=== PATIENT | male | born 1970 | race Caucasian/White ===

== ENCOUNTER 2022-05-06 17:18 | Emergency (ER) | payer BC, SELFPAY ==
[2022-05-06 18:45] VITALS: BP 120/77; PULSE 102; RESP 24; TEMP 36.6; O2SAT 97; BMI 28.6
[2022-05-06 19:39] LABS: PCR FLU A Negative PCR FLU A (Negative); PCR FLU B Negative PCR FLU B (Negative); PCR RSV Negative PCR RSV (Negative)
--- NOTE | 2022-05-06 19:44 | CRLHL7_ITS ---
For Patients: As a result of the Cures Act, medical imaging exams and procedure reports are released immediately into your electronic medical record. You may view this report before your referring provider. If you have questions, please contact your health care provider. INDICATION: Cough. TECHNIQUE: Chest 2 views. COMPARISON: October 07, 2021. FINDINGS: Cardiovascular and mediastinum: Heart size and vasculature are normal in caliber and appearance. Lungs and pleural spaces: Lungs are clear. No sign of infiltrate or mass. No sign of pleural effusion. No pneumothorax. Bones and soft tissues: No significant findings. IMPRESSION: No acute findings and no significant changes from the prior exam. Dictated by Deven Larson MD @ 05/06/2022 8:23:04 PM (Electronically Signed)
--- OUTSIDE RECORDS SUMMARY | 2022-05-06 20:02 | XMS_ITS | Encounter Summary ---
:1970 Author Organization [place] Address [facility] [place] [address] Care Team Providers Name Role Phone Clinic, [facility] Primary Care Provide r Reason for Visit Reason Comments Shortness of Breath Covid Concern Encounter Details Date Type Department Care Team Description 11/15/2020 Emergency [facility] Maico Ruggiero MD Pneumonia due to [address] [place] [address] Emergency Dep t [facility] novel coronavirus [address] [place], [place] [address] [facility] [address] [place] [place] [id number] [place] [address] (Wo rk) Social History Tobacco Use Types Packs/Day Years Used Date Smoking Tobacco: Never Alcohol Use Standard Drinks/Week Comments No 0 (1 standard drink = 0.6 oz pure alcoho l) Sex Assigned at Date Recorded Not on file COVID-19 Exposure Response Date Recorded In the last month, have you been in contact with Yes 11/15/2020 10:16 PM CDT someone who was confirmed or suspected to have Coronavirus / COVID-19? documented as of this encounter Last Filed Vital Signs Vital Sign Reading Time Taken Comments Blood Pressure 126/82 11/15/2020 11:30 PM CDT Pulse 87 11/15/2020 11:30 PM CDT Temperature 36.4 ??C (97.5 ??F) 11/15/2020 10:17 PM CDT Respiratory Rate 20 11/15/2020 10:17 PM CDT Oxygen Saturation 95% 11/15/2020 11:30 PM CDT Inhaled Oxygen Concentration - - Weight 93.4 kg (206 lb) 11/15/2020 10:17 PM CDT Height - - Body Mass Index - - documented in this encounter Discharge Instructions Discharge InstructionsMaico Ruggiero MD - 11/15/2020 11:39 PM CDT Discharge Instructions COVID-19 COVID-19 is the disease caused by a new coronavirus. The virus spreads from hbdzak-ot-drefqi primarily by droplets when an infected person coughs or sneezes and the droplets are then breathed in by another person. There are tests available to diagnose COVID-19. You may have been diagnosed with COVID, may be being tested for COVID and have a pending test result, or may have been exposed to COVID. Symptoms of COVID-19 Many people have no symptoms or mild symptoms. Symptoms may usually appear 4 to 5 days (up to 14 days) after contact with a person with COVID-19. Some people will get severe symptoms and pneumonia. Usual symptoms are: ? Fever ? Cough ? Trouble breathing Less common symptoms are: Headache, body aches, sore throat, sneezing, diarrhea, loss of taste or smell. Isolation and Quarantine You may have been seen because you have symptoms, had an exposure, or had some other concern about possible COVID. The best way to stop the spread of the virus is to avoid contact with others. Isolation refers to sick people staying away from people who are not sick. A person in quarantine islimiting activity because they were exposed and are waiting to see if they might become sick. If you test positive for COVID, you should stay home (isolation) for at least 10 days after your symptoms began, and for 24 hours with no fever and improvement of symptoms--whichever is longer. (Your fever should be gone for 24 hours without using fever-reducing medicine). If you have no symptoms, youshould stay home (isolation) for 10 days from the day of the test. If you have been vaccinated for COVID, the vaccination will not cause you to test positive so a positive test result generally is a ???true positive?? . For example, if you have a fever and cough for 6 days, you need to stay home 4 more days with no fever for a total of 10 days. Or, if you have a fever and cough for 10 days, you need to stay home one more day with no fever for a total of 11 days. If you have a high-risk exposure to COVID (you spent 15 minutes or more within six feet of somebody who has COVID), you should stay home (quarantine) for 14 days, unless you are vaccinated. Even if youtest negative for COVID, the CDC recommends a 14-day quarantine from the time of your last exposure to that individual (unless you are vaccinated). There are options for a shortened (<14 day quarantine) you can review at: https://www.health.[facility]./diseases/coronavirus/close.html#long If you live in the same house as somebody with COVID and cannot separate from them, you will need toquarantine for 14-days after that person's isolation (infectious) period. That means that you may need to quarantine for 24-days after that person became symptomatic/ill. If you are vaccinated and do not develop symptoms, you do not need to quarantine after exposure. If you have symptoms but a negative test, you should stay at home until you are symptom-free and without fever for 24 hours, using the same judgment you would for when it is safe to return to work/school from strep throat, influenza, or the common cold. If you worsen, you should consider being re-evaluated. If you are being tested for COVID because of symptoms and your test is pending, you should stay homeuntil you know your test result. If I have COVID, how should I protect myself and others? Do not go to work or school. Have a friend or relative do your shopping. Do not use public transportation (bus, train) or ridesharing (Lyft, Uber). Separate yourself from other people in your home. As much as possible, you should stay in one room and away from other people in your home. Also, use a separate bathroom, if possible. Avoid handling pets or other animals while sick. Wear a facemask if you need to be around other people and cover your mouth and nose with a tissue when you cough or sneeze. Avoid sharing personal household items. You should not share dishes, drinking glasses, forks/knives/spoons, towels, or bedding with other people in your home. After using these items, they should be washed with soap and water. Clean parts of your home that are touched often (doorknobs, faucets, countertops, etc.) daily. Wash your hands often with soap and water for at least 20 seconds or use an alcohol-based hand senior integration developer containing at least 60% alcohol. Avoid touching your face. Treat your symptoms. You can take Acetaminophen (Tylenol) to treat body aches and fever as needed for comfort. Ibuprofen (Advil or Motrin) can be used as well if you still have symptoms after taking Tylenol. Drink fluids. Rest. Watch for worsening symptoms such as shortness of breath/difficulty breathing or very severe weakness. Employers/workplaces are being asked by the Centers for Disease Control (CDC) to not request notes/documentation for you to return to work or prove that you were ill. You may choose to show your employer this paperwork. Also, repeat testing should not be required to return to work. Exercise/Sports in rare cases, COVID could affect your heart in a way that makes exercise or participation in sports dangerous. If you have a mild COVID illness (fever, cough, sore throat, and similar symptoms but no difficulty breathing or abnormalities of the lung): After your COVID symptoms have resolved, wait 14-days beforereturning to activity. If you have more than a mild illness (meaning that you have problems with your breathing or lungs) or if you participate in competitive or strenuous activity or have a history of heart disease: Please see your primary doctor/provider prior to return to activity/competition. Antibody treatments are available for patients with mild to moderate COVID illness in order to prevent severe illness. In general, only patients with risk factors for severe illness are eligible for treatment. For more information, to see if you are eligible, and to find treatment, go to the [facility]: https://www.health.[facility].[place].us/diseases/coronavirus/mnrap.html Return to the Emergency Department if: If you are developing worsening breathing, shortness of breath, or feel worse you should seek medical attention. If you are uncertain, contact your health care provider/clinic. If you need emergency medical attention, call 911 and tell them you have been ill. documented in this encounter Medications at Time of Discharge Medication Sig Dispensed Refills Start Date End Date albuterol (2.5 MG/3ML) Take 1 ampule by 0 0.083% nebulizer nebulization daily as solution needed acetaminophen (TYLENOL) Take 1,000 mg by mouth 0 11/18/2020 500 MG tablet daily as needed for mild pain (2 X 500 mg) albuterol (PROAIR Inhale 2 puffs into 0 11/18/2020 HFA/PROVENTIL the lungs daily as HFA/VENTOLIN HFA) 108 needed for shortness (90 Base) MCG/ACT of breath / dyspnea or inhaler wheezing celecoxib (CELEBREX) Take 200 mg by mouth 2 0 11/18/2020 200 MG capsule times daily diazepam (VALIUM) 2 MG Take 2 mg by mouth 0 11/18/2020 tablet daily as needed for anxiety FLUoxetine 20 MG tablet Take 60 mg by mouth 0 11/18/2020 every morning (3 X 20 mg) fluticasone (FLOVENT Inhale 2 puffs into 0 11/18/2020 HFA) 110 MCG/ACT the lungs every inhaler morning gabapentin (NEURONTIN) Take 600 mg by mouth 2 0 11/18/2020 300 MG capsule times daily (2 X 300 mg) hydrOXYzine (ATARAX) 25 Take 25-50 mg by mouth 0 11/18/2020 MG tablet daily as needed for itching Multiple Take 5 chew tab by 0 2020 Vitamins-Minerals mouth every morning (MULTIVITAMIN GUMMIES ADULT PO) sildenafil (VIAGRA) 100 Take 100 mg by mouth 0 11/18/2020 MG tablet daily as needed sulfamethoxazole-trimet Take 1 tablet by mouth 0 11/18/2020 hoprim (BACTRIM DS) 2 times daily FIVE DAY 800-160 MG tablet COURSE, STARTED 11/14/20 - 11/18/20 traZODone (DESYREL) 50 Take 50 mg by mouth 0 11/18/2020 MG tablet every evening documented as of this encounter ED Notes Ludwin Braxton, RN - 11/15/2020 10:18 PM CDT Pt arrives with complaints of shortness of breath since Dx of COVID on Wednesday for which he has beentaking Zithromax and Prednisone, but is reporting no change in his SOB. Hx of asthma. Denies chest pain, but says he needs a jump start with this breathing. ABCs intact, A/O x4. Maico Ruggiero MD - 11/15/2020 10:03 PM CDT History Chief Complaint: Shortness of Breath and Covid Concern HPI Don Thomas is a 50 year old male with history of asthma who presents with shortness of breath. The patient states that he was diagnosed with COVID-19 two weeks ago and was started on Prednisone and Zithromax on Wednesday (11/13) for his symptoms. He presents with concern for shortness of breath and dry throat. Denies any chest pain or fever. The patient has a home pulse oximeter, which has been measuring in the upper 90's. He has not been vaccinated for COVID-19. Review of Systems Constitutional: Negative for fever. HENT: Positive for sore throat. Respiratory: Positive for shortness of breath. Cardiovascular: Negative for chest pain. All other systems reviewed and are negative. Allergies: No known drug allergies Medications: Albuterol Gabapentin Trazodone Prozac Viagra Past Medical History: COVID-19 Asthma Spinal stenosis Loss hearing unilateral Arthritis Depression Nance's palsy Past Surgical History: Craniectomy Laminectomy lumbar Finger surgery Rotator cuff surgery Decompression spine posterior lumbar Social History: Presents to emergency department alone Physical Exam Patient Vitals for the past 24 hrs: BP Temp Temp src Pulse Resp SpO2 Weight 11/15/20 2330 126/82 -- -- 87 -- 95 % -- 11/15/20 2315 114/100 -- -- 90 -- 94 % -- 11/15/20 2300 130/91 -- -- 85 -- 93 % -- 11/15/20 2245 134/77 -- -- 86 -- 92 % -- 11/15/20 2217 126/85 97.5 ??F (36.4 ??C) Temporal 90 20 98 % 93.4 kg (206 lb) Physical Exam Nursing note and vitals reviewed. Constitutional: Cooperative. Tired appearing. HENT: Mouth/Throat: Mucous membranes are normal. Cardiovascular: Normal rate, regular rhythm and normal heart sounds. No murmur. Pulmonary/Chest: Effort normal and breath sounds normal. No respiratory distress. No wheezes. No rales. Abdominal: Soft. Normal appearance. There is no tenderness. Neurological: Alert. Oriented x4 Skin: Skin is warm and dry. . Psychiatric: Normal mood and affect. Emergency Department Course Imaging: XR Chest Port 1 View IMPRESSION: Within the left upper lobe laterally, there is a small somewhat rounded region of consolidation. Chest otherwise negative. As read by Radiology. Laboratory: CBC: WBC: 13.7 (H), HGB: 14.7, PLT: 285 BMP: Glucose 125 (H), Calcium: 8.4 (L), o/w WNL (Creatinine: 0.92) Reviewed: I reviewed nursing notes, vitals, past medical history and care everywhere Assessments: 2332 I obtained history and examined the patient as noted above. Disposition: The patient was discharged to home. Impression & Plan Medical Decision Making: Don Thomas is a 50 year old male who presents to the emergency department today with cough and shortness of breath in the setting of a known COVID-19 diagnosis. Clinically the patient is well appearing without increased work of breathing, respiratory distress, hypoxia, signs of ARDS or other serious decompensation or complication. There are no signs of complications of pneumonia at this point such as septic shock, bacteremia, empyema, hypoxia, respiratory failure or compromise. CXR was obtainedand concerning for COVID-19 pneumonia, otherwise negative. I recommended supportive care for treatment. He is already on antibiotics. Tylenol for fever control. Good oral fluid intake. Discussed the importance of home quarantine and CDC guidelines on self-quarantine were provided as part of discharge instructions. No indication for hospitalization at this time. Return precautions were discussed with patient. The patient's questions were answered and the patient was agreeable with discharge. Covid-19 Don Thomas was evaluated during a global COVID-19 pandemic, which necessitated consideration that the patient might be at risk for infection with the SARS-CoV-2 virus that causes COVID-19. Applicable protocols for evaluation were followed during the patient's care. COVID-19 was considered as part of the patient's evaluation. The plan for testing is: a test was obtained at a previous visit and reviewed & considered today. Diagnosis: ICD-10-CM 1. Pneumonia due to 2019 novel coronavirus U07.1 J12.82 Scribe Disclosure: I, Carlita Yanes, am serving as a scribe at 11:27 PM on 11/15/2020 to document services personally performed by Maico Ruggiero MD based on my observations and the provider's statements to me. Maico Ruggiero MD 11/16/20 0122 documented in this encounter Plan of Treatment Not on filedocumented as of this encounter Procedures Procedure Name Priority Date/Time Associated Comments Diagnosis XR CHEST PORT 1 VIEW STAT 11/15/2020 10:57 Res ults for this PM CDT procedure are i n the results section. CBC WITH PLATELETS & STAT 11/15/2020 10:43 Res ults for this DIFFERENTIAL PM CDT procedure are i n the results section. BASIC METABOLIC PANEL STAT 11/15/2020 10:43 Re sults for this PM CDT procedure are i n the results section. documented in this encounter Results XR Chest Port 1 View (11/15/2020 10:57 PM CDT) Anatomical Region Laterality Modality Chest Digital Radiography Specimen (Source) Anatomical Collection Method Collection Time Re ceived Time Location / / Volume Laterality 11/15/2020 10:47 PM CDT Impressions 11/15/2020 11:57 PM CDT IMPRESSION: Within the left upper lobe l aterally, there is a small somewhat rounded region of consolidation. Chest otherwise negative. Narrative 11/15/2020 11:57 PM CDT EXAM: XR CHEST PORT 1 VIEW LOCATION: [facility] DATE/TIME: 11/15/2020 10:47 PM INDICATION: Shortness of breath. COVID p ositive. COMPARISON: None. Procedure Note Kishan Correa MD - 11/15/2020Formattin g of this note might be different from the original. EXAM: XR CHEST PORT 1 VIEW LOCATION: [facility] DATE/TIME: 11/15/2020 10:47 PM INDICATION: Shortness of breath. COVID p ositive. COMPARISON: None. IMPRESSION: Within the left upper lobe l aterally, there is a small somewhat rounded region of consolidation. Chest otherwise negative. Mendoza Pandey MD IMG DIAGNOSTIC IMAGING ORDER ROB (ABNORMAL) Basic metabolic panel (11/15/2020 10:43 PM CDT) athologist Signature Sodium 136 133 - 144 11/15/2020 [facility] mmol/L 11:06 PM [facility] Potassium 3.7 3.4 - 5.3 11/15/2020 [facility] mmol/L 11:06 PM [facility] Chloride 108 94 - 109 11/15/2020 [facility] mmol/L 11:06 PM [facility] Carbon Dioxide 22 20 - 32 11/15/2020 [facility] mmol/L 11:19 PM [facility] Anion Gap 6 3 - 14 11/15/2020 [place] mmol/L 11:19 [facility] Glucose 125 (H) 70 - 99 11/15/2020 [facility] mg/dL 11:19 [facility] Urea Nitrogen 15 7 - 30 11/15/2020 [facility] mg/dL 11:19 [facility] Creatinine 0.92 0.66 - 11/15/2020 [facility] 1.25 mg/dL 11:19 [facility] GFR Estimate >90 >60 11/15/2020 [place] mL/min/{1. 11:19 PM [facility] 73_m2} [facility] Comment: Non GFR Calc Starting 06/21/2018, serum creatinine ba sed estimated GFR (eGFR) will be calculated using the Chronic Kidney Dise [facility] Epidemiology Collaboration (CKD-EPI) equation. GFR Estimate If >90 >60 mL/min/{1.73_m2} 11/15/2020 11 :19 PM [facility] Comment: GFR Calc Starting 06/21/2018, serum creatinine ba sed estimated GFR (eGFR) will be calculated using the Chronic Kidney Dise [facility] Epidemiology Collaboration (CKD-EPI) equation. Calcium 8.4 (L) 8.5 - 10.1 mg/dL 11/15/2020 11:19 PM [facility] Specimen Anatomical Collection Method Collection Time Receive d Time (Source) Location / / Volume Laterality Blood 11/15/2020 10:43 11/15/2020 PM CDT 10:50 PM CDT Maico Ruggiero MD LAB - BLOOD ORDERABLES Performing Organization Address City/State/ZIP Code Phon e Number [facility] [address], [place] [address] [facility] [address], [place] [address], [facility] [phone] (ABNORMAL) CBC with platelets differential (11/15/2020 10:43 PM T) [facility] Method Time Signature WBC 13.7 (H) 4.0 - 11/15/2020 [facility] 11.0 10:55 PM [facility] 10e9/L [facility] RBC Count 4.56 4.4 - 5.9 11/15/2020 [facility] 10e12/L 10:55 PM [facility] Hemoglobin 14.7 13.3 - 11/15/2020 [facility] 17.7 g/dL 10:55 PM [facility] Hematocrit 41.7 40.0 - 11/15/2020 [facility] 53.0 % 10:55 PM [facility] MCV 91 78 - 100 11/15/2020 [facility] fl 10:55 PM [facility] MCH 32.2 26.5 - 11/15/2020 [facility] 33.0 pg 10:55 PM [facility] MCHC 35.3 31.5 - 11/15/2020 [facility] 36.5 g/dL 10:55 PM [facility] RDW 11.7 10.0 - 11/15/2020 [facility] 15.0 % 10:55 PM [facility] Platelet Count 285 150 - 450 11/15/2020 [facility] 10e9/L 10:55 PM [facility] Diff Method Automated 11/15/2020 [facility] Method 10:55 PM [facility] % Neutrophils 85.9 % 11/15/2020 [facility] 10:55 PM [facility] % Lymphocytes 4.8 % 11/15/2020 [facility] 10:55 PM [facility] % Monocytes 7.5 % 11/15/2020 [facility] 10:55 PM [facility] % Eosinophils 0.1 % 11/15/2020 [facility] 10:55 PM [facility] % Basophils 0.2 % 11/15/2020 [facility] 10:55 PM [facility] % Immature 1.5 % 11/15/2020 [facility] Granulocytes 10:55 PM [facility] Nucleated RBCs 0 0 /100 11/15/2020 [facility] 10:55 PM [facility] Absolute 11.7 (H) 1.6 - 8.3 11/15/2020 [facility] Neutrophil 10e9/L 10:55 PM [facility] Absolute 0.7 (L) 0.8 - 5.3 11/15/2020 [facility] Lymphocytes 10e9/L 10:55 PM [facility] Absolute 1.0 0.0 - 1.3 11/15/2020 [facility] Monocytes 10e9/L 10:55 PM [facility] Absolute 0.0 0.0 - 0.7 11/15/2020 [facility] Eosinophils 10e9/L 10:55 PM [facility] Absolute 0.0 0.0 - 0.2 11/15/2020 [facility] Basophils 10e9/L 10:55 PM [facility] Abs Immature 0.2 0 - 0.4 11/15/2020 [facility] Granulocytes 10e9/L 10:55 PM [facility] Absolute 0.0 11/15/2020 [facility] Nucleated RBC 10:55 [facility] Specimen Anatomical Collection Method Collection Time Receive d Time (Source) Location / / Volume Laterality Blood 11/15/2020 10:43 11/15/2020 PM CDT 10:50 PM CDT Maico Ruggiero MD LAB - BLOOD ORDERABLES Performing Organization Address City/State/ZIP Code Phon e Number M [facility] [address], [place] [address] [facility] [address] [phone] documented in this encounter Visit Diagnoses Diagnosis Pneumonia due to 2019 novel coronavirus documented in this encounter Care Teams Product Marketing Coordinator Relationship Specialty Start Date End Date Clinic, [facility] PCP - General 11/15/[address] [place] [id number] documented as of this encounter
--- OUTSIDE RECORDS SUMMARY | 2022-05-06 20:02 | XMS_ITS | Encounter Summary ---
:1970 Author Organization [place] Address [address] [place] [address]. [place] [address] Care Team Providers Name Role Phone [facility], [facility] Primary Care Provider Unav ailable Reason for Visit Reason Comments Pharyngitis Shortness of Breath Cold Symptoms Encounter Details Date Type Department Care Team Description 03/12/2013 Emergency [facility] Louann Mendoza Acute ph aryngitis (Primary Dx); [facility] Emergency Dep arnulfo Ramsay MD Viral syndrome; [address] [facility] Cough [facility] [id number] [address] [place] [address] (Wo rk) Social History Tobacco Use Types Packs/Day Years Used Date Smoking Tobacco: Never Alcohol Use Standard Drinks/Week Comments No 0 (1 standard drink = 0.6 oz pure alcoho l) Sex Assigned at Date Recorded Not on file documented as of this encounter Last Filed Vital Signs Vital Sign Reading Time Taken Comments Blood Pressure 108/71 03/12/2013 9:41 AM CDT Pulse - - Temperature 37.1 ??C (98.8 ??F) 03/12/2013 9:48 AM CDT Respiratory Rate 16 03/12/2013 7:57 AM CDT Oxygen Saturation 96% 03/12/2013 9:41 AM CDT Inhaled Oxygen Concentration - - Weight 95.3 kg (210 lb) 03/12/2013 6:47 AM CDT Height - - Body Mass Index - - documented in this encounter Discharge Instructions Discharge InstructionsLouann Mendoza MD - 03/12/2013 8:56 AM CDT Discharge Instructions Sore Throat You were seen today for a sore throat. Most sore throats are caused by a virus. Antibiotics do not help with viral infections, but you can fight off the virus on your own. In this case, your sore throat would be treated with medications for your pain and fever. Strep throat is a kind of sore throat caused by Group A streptococcus bacteria. This type of sore throat is treated with antibiotics. If you had a rapid test done today for strep throat and it did not show infection, we always do a culture. If the culture shows you have strep throat, we will call you and get you a prescription for antibiotics. Return to the Emergency Department if: If you have difficulty breathing If you are drooling because you are unable to swallow You become dehydrated due to difficulty drinking. Signs of dehydration include weakness, dry mouth,and urinating less than 3 times per day If you develop swelling of the neck or tongue If you develop a high fever with either headache or stiff neck Treatment: Pain relief -- Non-prescription pain medications, such as acetaminophen (Tylenol??) or ibuprofen (Motrin??, Advil??) are usually recommended for pain. Do not use a medicine that you are allergic to, or if your doctor has told you not to use it. If you have been given a narcotic (such as codeine, hydrocodone, or oxycodone) do not drive for four hours after you have taken it. If the narcotic contains acetaminophen (Tylenol??), do not take other acetaminophen (Tylenol??) with it. All narcotics will cause constipation, so eat a high fiber diet. If you have been placed on antibiotics, watch for signs of allergic reaction. These include rash, lip swelling, difficulty breathing, wheezing, and dizziness. If you develop any of these symptoms, stop the antibiotic immediately and go to an emergency room or urgent care for evaluation. Remember that you can always come back to the Emergency Department if you are not able to see your regular doctor in the amount of time listed above, if you get any new symptoms, or if there is anything that worries you. AttachmentsThe following attachments cannot be sent through Care Everywhere. VIRAL SYNDROME (ADULT) (LITHUANIAN)documented in this encounter Medications at Time of Discharge Medication Sig Dispensed Refills Start Date End Date albuterol (2.5 MG/3ML) Take 1 ampule by 0 0.083% nebulizer nebulization daily as solution needed ondansetron (ZOFRAN ODT) Take 1 tablet (4 mg) 10 tablet 0 0 03/12/2013 03/15/2013 4 MG disintegrating by mouth every 8 tablet hours as needed for nausea LMA-Ehso-SqLksn-MgHydr-S Swish and swallow 237 mL 1 02/201311/15/2020 imeth (FIRST-MOUTHWASH 5-10 mLs in mouth BLM) SUSP every 6 hours as needed ibuprofen (ADVIL,MOTRIN) Take 1 tablet (600 30 tablet 1 02/201311/15/2020 600 MG tablet mg) by mouth every 6 hours as needed for pain NO ACTIVE MEDICATIONS 0 oxyCODONE-acetaminophen Take 1-2 tablets by 15 tablet 0 02/201311/15/2020 (PERCOCET) 5-325 MG per mouth every 4 hours tablet as needed for pain documented as of this encounter ED Notes Janessa Pitts RN - 03/12/2013 8:35 AM CDT Pt has been eating and swallowing ice chips Louann Mendoza MD - 03/12/2013 6:58 AM CDT History Chief Complaint: Sore Throat HPI Don Thomas is a 42 year old male with a history of asthma who presents with a sore throat. According to the patient, 3 days ago he experienced acute onset of a sore throat, fever to 102 on Wednesday,generalized body aches and a severe productive cough with associated mild shortness of breath. The patient has also been unable to sleep, felt nauseated over this period and has gagged on the phlegm heis producing. He presents today with unresolved symptoms. His girlfriend (with whom he lives) did have pneumonia last week per her report, and he also states that he had a sick contact at work with similar upper respiratory symptoms. The patient has taken Tylenol around the clock since Wednesday. He den ies any episodes of emesis, rash, dysphagia, nasal congestion, rhinorrhea, hemoptysis or neck/ear pain. He has had no headache, chest pain, chills or diaphoresis. The patient reports no urinary or neurologic symptoms aside from increased fatigue. He states he has not had a BM in the last 5 days but notes that he often has highly irregular BMs. The patient is clearly uncomfortable on the bed and voices no other complaints at this time. Allergies: The patient has no known drug allergies. Medications: Albuterol neb, Advair Past Medical History: Asthma Past Surgical History: The patient does not have any pertinent past surgical history. Family History: The patient denies any relevant family history. Marital Status: , has a current significant other Social History: Smoking status (never smoker), smokeless tobacco (no), alcohol use (yes, occasional) Review of Systems Constitutional: Positive for fever (102). Negative for chills and diaphoresis. HENT: Positive for sore throat. Negative for congestion, rhinorrhea, trouble swallowing, neck pain and neck stiffness. Respiratory: Positive for cough (productive) and shortness of breath (mild). Negative for chest tightness and wheezing. Cardiovascular: Negative for chest pain. Gastrointestinal: Positive for nausea. Negative for vomiting and abdominal pain. Genitourinary: Negative for dysuria, hematuria and difficulty urinating. Musculoskeletal: Positive for arthralgias. Neurological: Negative. All other systems reviewed and are negative. Physical Exam First Vitals: BP: 111/68 mmHg Heart Rate: 94 Temp: 99.1 ??F (37.3 ??C) Resp: 22 Weight: 95.255 kg (210 lb) SpO2: 98 % Physical Exam Constitutional: He is oriented to person, place, and time. Adult male, appears uncomfortable, sitting upright HENT: soft palate and oropharyngeal erythema with multiple discrete white-stephen 1-2 mm lesions over the soft palate, mild edema, uvula is midline, no pooling of secretions, no asymmetry Eyes: Conjunctivae normal are normal. Pupils are equal, round, and reactive to light. Cardiovascular: Normal rate, regular rhythm, normal heart sounds and intact distal pulses. Exam reveals no gallop and no friction rub. No murmur heard. Pulmonary/Chest: Effort normal. No respiratory distress. He has no wheezes. He has no rales. Diminished breath sounds at right base Abdominal: Soft. He exhibits no distension and no mass. There is no tenderness. Musculoskeletal: Normal range of motion. He exhibits no edema and no tenderness. Lymphadenopathy: He has no cervical adenopathy. Neurological: He is alert and oriented to person, place, and time. He exhibits normal muscle tone. No focal abnormalities appreciated. Answers all questions and follows all commands appropriately. Skin: Skin is warm and dry. No rash noted. He is not diaphoretic. No erythema. Psychiatric: He has a normal mood and affect. Emergency Department Course Imaging: Radiographic findings were communicated with the patient who voiced understanding of the findings. XR Chest (PA and LAT): negative and unchanged, per radiology. Laboratory: Rapid Strep Test: Negative Strep Culture: Pending Nuckolls screen: negative ED Interventions: Sodium chloride 0.9%, 1 L, IV bolus NaCl 0.9%, 1 L, IV bolus Dexamethasone, 10 mg, IV injection Ketorolac, 30 mg IV injection Magic Mouthwash - Maalox 2.5 mL, Viscous Lidocaine 2% 2.5 mL, Benadryl 5 mL, 10 mL suspension, PO Percocet, 2 tab, PO ED Course: I reviewed the patient's medical record. 06:58 The patient was seen and examined by myself. I discussed the course of care with the patient including laboratory and diagnostic studies. He understands and is agreeable to the plan. A peripheral IV was established. 8:30 Recheck: notes improvement in body aches but still has sore throat; will give GI cocktail I discussed with the patient the results of the above procedures and he will be discharged to home with a prescription for Zofran, Percocet, First Mouthwash and Advil. All questions were answered prior to discharge, and the patient was told to follow up per discharge instructions. Reasons for return as well as follow up were reviewed with the patient. He understands and agrees tothis plan. Impression & Plan Medical Decision Making: Don Thomas is a healthy at baseline 42 year old male who presents to the ED with sore throat, body aches and cough. Here in the ED, he does not appear toxic but does appear uncomfortable. He does have evidence of oral lesions, which are likely causing his pain. He does not have a fever. He responded well to interventions here. There is no evidence of strep or mononucleosis. He had significant improvement with Magic Mouthwash and will be sent home with a prescription for this as well as instructions to use Motrin for pain. He requested something stronger as well and I will prescribe Percocet 1 tab every 4-6 hours as needed for pain. He should drink plenty of fluids and rest, and was given appropriate return instructions. He should follow up with his PMD in 3-5 days as needed. All questions were answered and the patient understands and agrees with the plan. The patient was discharged home in improved condition. Please note that he did have a cough and slightly diminished breath sounds at the right base; however, I suspect that was related to poor inspiration. His CXR was clear with no sign of infiltrates. I suspect that this is related to viral syndrome. Diagnosis: 1. Acute pharyngitis 2. Viral syndrome 3. Cough IDavid, am serving as a scribe at 6:58 AM on 03/12/2013 to document services personally performed by Dr. Mendoza based on my observations and the provider's statements to me. David Nicholas 03/12/2013 [facility] EMERGENCY DEPARTMENT Louann Mendoza MD 03/13/13 1146 Felton Molina RN - 03/12/2013 6:50 AM CDT Patient complaints of influenza like illness. This started about three days ago & got worse today. Patient complaints of difficulty breathing with nasal congestion/runy nose, sore throat and cough dry non productive with white color sputum. Patient also stated that they have fever, headaches, chills, shakes, muscles & body aches with fatigue. patient has nausea, vomiting and no diarrhea documented in this encounter Plan of Treatment Not on filedocumented as of this encounter Procedures Procedure Name Priority Date/Time Associated Comments Diagnosis XR CHEST 2 VIEWS STAT 03/12/2013 7:53 AM Resul ts for this CDT procedure are i n the results section. MONONUCLEOSIS SCREEN STAT 03/12/2013 7:25 AM R esults for this CDT procedure are i n the results section. BETA HEMOLYTIC STREP Routine 03/12/2013 7:25 AM R esults for this GROUP A CULTURE CDT procedure ar e in the results section. RAPID STREP SCREEN STAT 03/12/2013 7:05 AM Res ults for this THROAT SWAB CDT procedure are i n the results section. documented in this encounter Results Chest XR, PA & LAT (03/12/2013 7:53 AM CDT) Anatomical Region Laterality Modality Chest Other Specimen (Source) Anatomical Collection Method Collection Time Re ceived Time Location / / Volume Laterality 03/12/2013 7:53 AM CDT Narrative 03/12/2013 8:56 AM CDT CHEST 2 VIEW* ??03/12/2013 7:53 AM HISTORY: ??Cough COMPARISON: 07/12/2012 FINDINGS: Negative and unchanged. LAURO NUÑEZ MD Procedure Note Lauro Nuñez MD - 03/12/2013Formatti ng of this note might be different from the original. CHEST 2 VIEW* 03/12/2013 7:53 AM HISTORY: Cough COMPARISON: 07/12/2012 FINDINGS: Negative and unchanged. LAURO NUÑEZ MD Louann Mendoza MD IMG DIAGNOSTIC IMAGING ORDER ROB Beta strep group A culture (03/12/2013 7:25 AM CDT) Component Value Ref Test Analysis Performed At [facility] Method Time Signature Specimen Throat [facility] LAB Culture Micro No Beta [facility] Streptococcus MICROBIOLOGY isolated Micro Report FINAL 03/14/2013 [facility] Status MICROBIOLOGY Specimen Anatomical Collection Method Collection Time Receive d Time (Source) Location / / Volume Laterality 03/12/2013 7:25 AM 3 7:45 CDT AM CDT Louann Mendoza MD LAB - MICRO GENERAL ORDERABL ES Performing Organization Address City/State/ZIP Code Phon e Number [facility] [address] [place] [address] [facility] LAB [facility] MICROBIOLOGY Mononucleosis screen (03/12/2013 7:25 AM CDT) [facility] Voice Of TV Method Time Signature Mononucleosis Negative NEG [facility] LAB Specimen Anatomical Collection Method Collection Time Receive d Time (Source) Location / / Volume Laterality Blood specimen 03/12/2013 7:25 AM 013 7:32 (specimen) CDT AM CDT Louann Mendoza MD LAB - BLOOD ORDERABLES Performing Organization Address City/State/ZIP Code Phon e Number M [facility] [address] [place], [place] [address] [facility] LAB Rapid strep screen - throat (03/12/2013 7:05 AM CDT) Component Value Ref Test Analysis Performed At [facility] Range Method Time Signature Specimen Throat [facility] LAB Rapid Strep A NEGATIVE: No Group A strepto coccal antigen detected by immunoassay, await [facility] culture report. [facility] Internal [facility] LAB Micro Report FINAL 03/12/2013 [facility] LAB Specimen Anatomical Collection Method Collection Time Receive d Time (Source) Location / / Volume Laterality Specimen from 03/12/2013 7:05 AM 03/12/20 13 7:20 throat CDT AM CDT (specimen) Louann Mendoza MD LAB - MICRO GENERAL ORDERABL ES Performing Organization Address City/[facility]/ZIP Code Phon e Reji Martino [facility] [address], [place] [address] [facility] documented in this encounter Visit Diagnoses Diagnosis Acute pharyngitis - Primary Viral syndrome Unspecified viral infection, in conditio ns classified elsewhere and of unspecified site Cough documented in this encounter Administered Medications Inactive Administered Medications - up to 3 most recent administrations Medication Order MAR Action Action Date Dose Rate Site dexamethasone (DECADRON) injection Given 03/12/2013 7:25 AM CDT 10 mg 10 mg 10 mg, Intravenous, ONCE, On 03/12/13 at 0715, For 1 dose ketorolac (TORADOL) injection 30 mg Given 03/12/2013 7:25 AM CDT 30 mg 30 mg, Intravenous, ONCE, On 03/12/13 at 0715, For 1 dose, Do not give within 6 hours of Ibuprofen. Magic Mouthwash (FV std formula) lidocaine Given 03/12/2013 9:25 AM CDT 10 mLs visc 2% 2.5mL/5mL & maalox/mylanta w/ simeth 2.5mL/5mL & diphenhydrAMINE 5mg/5mL 10 mL, Swish & Swallow, ONCE, On 03/12/13 at 0845, For 1 dose, Shake well. oxyCODONE-acetaminophen (PERCOCET) 5-325 Given 03/12/2013 8: 41 AM CDT 2 tablets MG per tablet 2 tablet 2 tablet, Oral, ONCE, On 03/12/13 at 0845, For 1 dose, Maximum acetaminophen dose from all sources= 75 mg/kg/day not to exceed 4 grams sodium chloride 0.9 % BOLUS New Bag 03/12/2013 7:25 AM CDT 1,000 m Ls 1000 mL/hr 1,000 mL Intravenous, 1,000 mL, ONCE, at 1,000 mL/hr, Administer over 1 Hours, On 03/12/13 at 0715, For 1 dose documented in this encounter Active and Recently Administered Medications Times are shown in CDT. Scheduled Medication Order 03/10/2013 03/11/2013 03/12/2013 dexamethasone (DECADRON) injection 10 mg (COMPLETED) 724 (Given - Provider: Janessa Pitts RN) 10 mg, Intravenous, ONCE, 03/12/13 at 0715, For 1 dose ketorolac (TORADOL) injection 30 mg (COMPLETED) 724 (Given - Provider: Janessa Pitts RN) 30 mg, Intravenous, ONCE, 03/12/13 at 0715, For 1 dose, Do not give within 6 hours of Ibuprofen. Magic Mouthwash (FV std formula) lidocai ne visc 2% 2.5mL/5mL & maalox/mylanta w/ simeth 2.5mL/5mL & diphenhydrAMINE 5mg/5mL (COMPLETED) 924 (Given - Provider: Janessa Pitts RN) 10 mL, Swish & Swallow, ONCE, On 03/12/13 at 0845, For 1 dose, Shake well. 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
--- OUTSIDE RECORDS SUMMARY | 2022-05-06 20:02 | XMS_ITS | Encounter Summary ---
:1970 Author Organization [place] Address [address] [facility] [place] [address] Care Team Providers Name Role Phone [facility] Primary Care Provider Unav ailable Encounter Details Date Type Department Care Team Description 11/06/2020 Orders Only [facility] Sammy Moffett Encounter for Maria E Arriola OR MD Zachery screening for other [address] [place] [facility] viral diseases [address] [id number] [place] [phone] [id number] Social History Tobacco Use Types Packs/Day Years Used Date Smoking Tobacco: Never Alcohol Use Standard Drinks/Week Comments No 0 (1 standard drink = 0.6 oz pure alcoho l) Sex Assigned at Date Recorded Not on file documented as of this encounter Plan of Treatment Not on filedocumented as of this encounter Visit Diagnoses Diagnosis Encounter for screening for other viral diseases documented in this encounter 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
--- OUTSIDE RECORDS SUMMARY | 2022-05-06 20:02 | XMS_ITS | Encounter Summary ---
:1970 Author Organization [facility] Address [facility] [place] [address] Care Team Providers Name Role Phone [facility], [facility] Primary Care Provide r Reason for Visit Auth/Cert Specialty Diagnoses / Procedures Referred By Contact Refer red To Contact Surgery Diagnoses Erectile dysfunction Erectile dysfunction [N52.9] Sh Periop Services Procedures ZZC INSERT SELF-CONTD PENILE PROSTHESIS ZZC INSERT MULTI-COMPON PENILE PROSTHE INSERTION, PENILE PROSTHESIS, INFLATABLE [address] [place] [address] Phone: Referral ID Status Reason Start Date Expiration Date Visits Requ ested Visits Authorized [id number] 1 1 Encounter Details Date Type Department Care Team Description 02/18/2021 Surgery [facility] Sammy Moffett INSERTION , PENILE [place] [facility] MD [place] PROSTHESIS, INFLATABLE Services [facility] [address] [place] [address] [place] [address] [phone] Surgery Details Date/Time Status Location OR Service Patient Case Class Case Tr auma Class Type Case? 02/18/21 9:40 Posted OR OR [facility] Same Day AM Surgery Panel 1 Procedure LRB Anes Op Region Wound Class Commen ts INSERTION, PENILE PROSTHESIS, INFLATABLE N/A General Penis I-Clean Surgeon Surgeon Role Service Panel Sammy Moffett MD Primary Urology 1 Stephen Maciel MD Assisting Urology 1 Special Needs PENILE IMPLANT - VESNA TSCHANN COLOPLAST documented in this encounter Social History Tobacco Use Types Packs/Day Years Used Date Smoking Tobacco: Former Cigarettes Smokeless Tobacco: Never Alcohol Use Standard Drinks/Week Comments No 0 (1 standard drink = 0.6 oz pure alcoho l) Sex Assigned at Date Recorded Not on file COVID-19 Exposure Response Date Recorded In the last month, have you been in contact with No / Unsure 02/18/2021 7:22 AM CDT someone who was confirmed or suspected to have Coronavirus / COVID-19? documented as of this encounter Last Filed Vital Signs Vital Sign Reading Time Taken Comments Blood Pressure 109/76 02/18/2021 12:00 PM CDT Pulse 73 02/18/2021 12:00 PM CDT Temperature 35.6 ??C (96 ??F) 02/18/2021 11:49 AM CDT Respiratory Rate 16 02/18/2021 12:00 PM CDT Oxygen Saturation 95% 02/18/2021 12:00 PM CDT Inhaled Oxygen Concentration - - Weight 93.4 kg (206 lb) 02/18/2021 7:41 AM CDT Height 180.3 cm (5' 11) 02/18/2021 7:41 AM CDT Body Mass Index 28.73 02/18/2021 7:41 AM CDT documented in this encounter Discharge Instructions Discharge InstructionsAnya Terry RN - 02/18/2021 12:54 PM CDT Today you were given 975 mg of Tylenol at 8:50. The recommended daily maximum dose is 4000 mg. Same Day Surgery Discharge Instructions for Sedation and General Anesthesia ?? It's not unusual to feel dizzy, light-headed or faint for up to 24 hours after surgery or while taking pain medication. If you have these symptoms: sit for a few minutes before standing and have someone assist you when you get up to walk or use the bathroom. ?? You should rest and relax for the next 24 hours. We recommend you make arrangements to have an adult stay with you for at least 24 hours after your discharge. Avoid hazardous and strenuous activity. ?? DO NOT DRIVE any vehicle or operate mechanical equipment for 24 hours following the end of your surgery. Even though you may feel normal, your reactions may be affected by the medication you have received. ?? Do not drink alcoholic beverages for 24 hours following surgery. ?? Slowly progress to your regular diet as you feel able. It's not unusual to feel nauseated and/or vomit after receiving anesthesia. If you develop these symptoms, drink clear liquids (apple juice, devan tiana, broth, 7-up, etc. ) until you feel better. If your nausea and vomiting persists for 24 hours, please notify your surgeon. ?? All narcotic pain medications, along with inactivity and anesthesia, can cause constipation. Drinking plenty of liquids and increasing fiber intake will help. ?? For any questions of a medical nature, call your surgeon. ?? Do not make important decisions for 24 hours. ?? If you had general anesthesia, you may have a sore throat for a couple of days related to the breathing tube used during surgery. You may use Cepacol lozenges to help with this discomfort. If it worsens or if you develop a fever, contact your surgeon. ?? If you feel your pain is not well managed with the pain medications prescribed by your surgeon, please contact your surgeon's office to let them know so they can address your concerns. CoVid 19 Information We want to give you information regarding Covid. Please consult your primary care provider with any questions you might have. Patient who have symptoms (cough, fever, or shortness of breath), need to isolate for 7 days from when symptoms started OR 72 hours after fever resolves (without fever reducing medications) AND improvement of respiratory symptoms (whichever is longer). ?? Isolate yourself at home (in own room/own bathroom if possible) ?? Do Not allow any visitors ?? Do Not go to work or school ?? Do Not go to orthodoxy, child support agent centers, shopping, or other public places. ?? Do Not shake hands. ?? Avoid close and intimate contact with others (hugging, kissing). ?? Follow CDC recommendations for household cleaning of frequently touched services. After the initial 7 days, continue to isolate yourself from household members as much as possible. To continue decrease the risk of community spread and exposure, you and any members of your household should limit activities in public for 14 days after starting home isolation. You can reference the following CDC link for helpful home isolation/care tips: https://www.cdc.gov/coronavirus/2019-ncov/downloads/10Things.pdf Protect Others: ?? Cover Your Mouth and Nose with a mask, disposable tissue or wash cloth to avoid spreading germs to others. ?? Wash your hands and face frequently with soap and water Call Your Primary Doctor If: Breathing difficulty develops or you become worse. For more information about COVID19 and options for caring for yourself at home, please visit the CDCwebsite at https://www.cdc.gov/coronavirus/2019-ncov/about/fqwed-wshg-rviq.html For more options for care at [facility], please visit our website at [email or web address] Reasons to contact your surgeon: 1. Signs of possible infection: Check your incision daily for redness, swelling, warmth, red streaksor foul drainage. 2. Elevated temperature. 3. Pain not controlled with pain medication and/or rest. 4. Uncontrolled nausea or vomiting. 5. Any questions or concerns. Hemant Huff Drain Home Care Instructions What is a Hemant Huff (MICHAEL) Drain? This is a small tube that connects to a bulb. Its gentle suction removes extra fluid from a surgicalwound. Your doctor will remove the tube when the amount of fluid decreases. The color and amount of fluid varies. Right after surgery the fluid is bright red. Over time, it changes to light pink and may become clear or the color of straw. How should I care for my tube site? Keep the skin around the tube dry. Check with your doctor about how to shower. You may need to cover the site with plastic when you shower. Or, it may be okay to let the site get wet and put on a clean bandage after you shower. ??? If the bandage gets wet, you will need to change it. How should I care for the bulb? Keep the bulb compressed at all times except while you empty it. ??? Attach the bulb to your clothing with tape and a safety pin. ??? Try to empty the bulb at the same time every day. Empty the bulb at least once a day, or when the bulb becomes half full. If it becomes too full, there will not be enough suction. To empty the bulb: ??? Wash your hands. ??? Open the bulb cap. ??? Drain the fluid from the bulb into the measuring cup. If you have two drains, use two cups. ??? Clean the mouth of the bulb with an alcohol wipe if your nurse told you to. ??? Squeeze the bulb (fold it in half before you close the bulb cap) If it does not stay compressed,call your nurse or clinic. ??? Write the amount of drainage on the drainage record (see back page). If you have two drains, write the amount for each bulb. ??? Flush the drainage down the toilet. Rinse the measuring cup. ??? Wash your hands. When should I call my doctor? Call your doctor if: ??? You have a fever over 101??F (38.3??C), taken under the tongue. ??? The drainage increases or smells bad. ??? The skin around your tube has increased redness, swelling, warmth or pain. ??? You have pus or fluid leaking at the tube site. ??? Your stitches break. ??? You think the tube is not draining. ??? The tube falls out. ??? You have any problems or concerns. Your drainage record: Empty your bulb at least once per day or when 1/2 to 1/3 full. Write down the date, time and amount of drainage in each bulb. Bring this record to each clinic visit. Date Time Bulb 1: amount of Drainage in (ml or cc) Bulb 2: amount of drainage (in ml or cc) Notes If you have questions or concerns about your procedure, call Dr. Moffett at [phone] documented in this encounter Medications at Time of Discharge Medication Sig Dispensed Refills Start Date End Date albuterol (2.5 MG/3ML) Take 1 ampule by 0 0.083% nebulizer nebulization daily as solution needed budesonide-formoterol Inhale 2 puffs into the 0 (SYMBICORT) 160-4.5 lungs every morning MCG/ACT Inhaler celecoxib (CELEBREX) Take 200 mg by mouth 0 200 MG capsule daily FLUoxetine (PROZAC) 20 Take 60 mg by mouth 0 MG capsule daily (20MG X 3 = 60MG) fluticasone (FLOVENT Inhale 1 puff into the 0 HFA) 110 MCG/ACT lungs 2 times daily inhaler gabapentin (NEURONTIN) Take 900 mg by mouth 3 0 300 MG capsule times daily (300MG X 3 = 900MG) ipratropium - Take 1 vial by 0 albuterol 0.5 mg/2.5 nebulization every 4 mg/3 mL (DUONEB) hours as needed 0.5-2.5 (3) MG/3ML neb solution melatonin 3 MG tablet Take 3 mg by mouth 0 nightly as needed for sleep montelukast Take 10 mg by mouth 0 (SINGULAIR) 10 MG every evening tablet sildenafil (VIAGRA) Take 100 mg by mouth 0 100 MG tablet daily as needed sulfamethoxazole-trime Take 1 tablet by mouth 10 tablet 0 0 02/18/2021 thoprim (BACTRIM DS) 2 times daily 800-160 MG tabletIndications: Other male erectile dysfunction traZODone (DESYREL) 50 Take 50 mg by mouth At 0 MG tablet Bedtime ondansetron Take 1-2 tablets (4-8 12 tablet 0 02/18/2021 (ZOFRAN-ODT) 4 MG ODT mg) by mouth every 8 tabIndications: Other hours as needed for male erectile nausea dysfunction oxyCODONE (ROXICODONE) Take 1-2 tablets (5-10 20 tablet 0 0 02/18/2021 02/21/2021 5 MG mg) by mouth every 4 tabletIndications: hours as needed for Other male erectile moderate to severe pain dysfunction documented as of this encounter Progress Notes Farheen Collins - 02/17/2021 1:18 PM CDT PAPER SLITTER medications updated by Medication Scribe prior to surgery via phone call with patient??(last doses completed by Nurse) Medication history sources: Patient, Surescripts and H&P In the past week, patient estimated taking medication this percent of the time: Greater than 90% Adherence assessment: N/A Not Observed Significant changes made to the medication list: None Additional medication history information: None Medication reconciliation completed by provider prior to medication history? No Time spent in this activity: 50 MINUTES The information provided in this note is only as accurate as the sources available at the time of update(s) Prior to Admission medications Medication Sig Last Dose Taking? Auth Provider albuterol (2.5 MG/3ML) 0.083% nebulizer solution Take 1 ampule by nebulization daily as needed at PRN Yes Reported, Patient budesonide-formoterol (SYMBICORT) 160-4.5 MCG/ACT Inhaler Inhale 2 puffs into the lungs every morning at AM Yes Reported, Patient celecoxib (CELEBREX) 200 MG capsule Take 200 mg by mouth daily at AM Yes Reported, Patient FLUoxetine (PROZAC) 20 MG capsule Take 60 mg by mouth daily (20MG X 3 = 60MG) at AM Yes Reported, Patient fluticasone (FLOVENT HFA) 110 MCG/ACT inhaler Inhale 1 puff into the lungs 2 times daily at PRN Yes Reported, Patient gabapentin (NEURONTIN) 300 MG capsule Take 900 mg by mouth 3 times daily (300MG X 3 = 900MG) at AM Yes Reported, Patient ipratropium - albuterol 0.5 mg/2.5 mg/3 mL (DUONEB) 0.5-2.5 (3) MG/3ML neb solution Take 1 vial by nebulization every 4 hours as needed at PRN Yes Reported, Patient melatonin 3 MG tablet Take 3 mg by mouth nightly as needed for sleep at PM Yes Reported, Patient montelukast (SINGULAIR) 10 MG tablet Take 10 mg by mouth every evening at PM Yes Reported, Patient sildenafil (VIAGRA) 100 MG tablet Take 100 mg by mouth daily as needed at PRN Yes Reported, Patient traZODone (DESYREL) 50 MG tablet Take 50 mg by mouth At Bedtime at PM Yes Reported, Patient documented in this encounter Nursing Notes Anya Terry RN - 02/18/2021 1:21 PM CDT Weighted bag removed from lower abdomen at 1250. Pt voided in PACU. MICHAEL instructions reviewed with pt, he stated he understood them and that his s.o. did not need to come into get MICHAEL instructions. Written MICHAEL instructions in AVS, to review with pt and s.o. in Phase II. Diana Alas RN - 02/17/2021 1:19 PM CDT Pt instructed to bring inhalers, and names of meds he was prescribed by Helen. documented in this encounter Miscellaneous Notes Op Note - Sammy Moffett MD - 02/18/2021 10:38 AM CDT OPERATIVE REPORT PATIENT: Don Thomas : 1970, AGE: [age] year old SSN: [id number] SURGEON Sammy Moffett MD (Primary) Stephen Robert Maciel MD Cigarette Machine Filler: Helene Franz RN PREOP DIAGNOSIS: Erectile Dysfunction POSTOP DIAGNOSIS: Same Procedure(s): INSERTION OF INFLATABLE PENILE PROSTHESIS ANESTHESIA General COMPLICATIONS: None FINDINGS 20 cm Coloplast Titan IPP, 76 ml of sterile injectable saline used to fill the reservoir in the right submuscular location. SPECIMEN None IMPLANT 1. 20 cm Coloplast Titan IPP 2. 76 ml [place] 3. Scrotal Pump EBL 20 cc INDICATIONS FOR PROCEDURE -this gentleman has a history of erectile dysfunction. The patient has failed all alternative therapies including phosphodiesterase inhibitors, intracavernosal injections, andvacuum erectile device. The patient has been evaluated in the office and is opted for placement of aTitan 3 piece penile prosthesis, with the patient fully understanding the risks and benefits of thistherapeutic approach, including but not limited to device failure, infection, bleeding, foreshortening of the penis, cold glans, decreased sensation, difficulty with pump utilization, urethral injury, herniation of the reservoir, difficulty with ejaculation and or an ejaculation, penile necrosis, and even imminent . It should be noted that the patient received Hibiclens shower for 1 to 2 days prior to the procedure and that the patient has been instructed to keep himself clean with proper hygiene and not engage in any sex until otherwise advised. OPERATIVE PROCEDURE- After proper identification of the patient,the patient was taken to the operating room and placed supine on the operating room table. Next adequate general anesthesia, a coud?? Bernabe catheter was inserted and the bladder was drained. The Bernabe was subsequently removed. The patientwas then positioned on the table with flexion in supine position. The groin was then prepped and draped after usual sterile scrub and paint per penile prosthesis protocol. The patient received perioperative antibiotics delivered within the appropriate time.. Bilateral pudendal nerve blocks were performed into Alcock's canal. Next an artificial erection was performed using a 21-gauge butterfly needle with a combination of normal saline and lidocaine withoutepinephrine. This demonstrated no significant pathology. An infrapubic incision was made, extending a pproximately 2 to 3 cm across the infrapubic area, making sure to stay away from the penopubic junction. Blunt dissection was carried down to the level of the corporal bodies bilaterally, making sure to spare the superficial epigastrics lateral to this dissection. Once down to the corpora, 2-0 Vicryl stay sutures were placed bilaterally, making sure the sutures were placed lateral as possible on eachindividual corpus, clearly away from the neurovascular bundles, which were protected and moved medially by the pediatric Yankauer. Bilateral corporotomies were performed with a 12 blade measuring approximately 1.5 cm. On the outstretched penis the left proximal corpora measured 10 cm using the Christian insertion tool. It should be noted that the pathway was created by placement of the Yankauer suction initially on the outstretched penis. Next on the outstretched penis with protection of the fossa navicularis and tip of the penis pinched between my thumb and index and middle fingers distal measurementwas performed and noted to be 10 cm. In a similar fashion the right side was measured 10 cm proximally and 10 cm distally. Again extreme caution was used on the outstretched penis with protection of the distal penis over the fossa navicularis with pressure by my thumb and middle and index finger.. I then placed the nasal speculum in the proximal corporotomies bilaterally to visualize the proximal corpora and this demonstrated no evidence of crossover. I then copiously irrigated and proceeded with placement of a 76 cc reservoir. This was placed just underneath transversalis fascia on the left side by use of a nasal speculum. This was just medial to the cord structure. Note that this was placed outside of the abdomen. I next copiously irrigated and everyone changed surgical gloves. I then proceeded with placement of the penile implant. The implant was placed in each appropriate corporal body using a Christian insertion tool and Jean needle. The implant was seated appropriately robby rapid fill inflation was performed using a syringe filled with normal saline in order to evaluate the function and cosmesis results of the implant. The implant was found to be seated appropriately and placed appropriately within each corporal body. A nasal speculum was then utilized to develop the midline posterior dependent portion in the scrotumafter first perforating Colles' fascia with a nasal speculum and then developing the space with 1 spread of the nasal speculum. The Lanie pump was then placed in the most dependent portion of the scrotum along the midline. The pump was then pulled up in order to allow for any redundancy in the tubing to be nonexistent after the connections were made. The appropriate kit was utilized to perform the tubing connections between the reservoir and the pump. The pump was then finally pulled down to the most dependent portion of the scrotum without any difficulty. A drain was then brought out through a se parate stab wound superiorly running through the surgical field. This was secured to the skin with a2-0 Nylon suture. The wound was irrigated with copious amounts of antibiotic fluid throughout the procedure. The wound was then closed in 2 layers by first approximating Ze's fascia with 3-0 Vicrylin a running type fashion and akira for the skin. The device was then activated easily .This demonstrating again demonstrated appropriate position and cosmesis .I next placed a Bernabe catheter 16 U[place] coud?? type without difficulty and clear urine drained. Dressings were then applied and a scrotal support . The device was then deactivated with a small amount of fluid in the cylinders. All sponge lap and needle counts were correct. The patient tolerated the procedure without any complications. Estimated blood loss was 20 cc. He was taken to the recovery room in stable condition. PLAN Patient to be transferred to the PACU with a 3L bag of fluid on incision for 2 hours. Patient must void prior to discharge. Patient will be discharged with multimodal pain medication and antibiotic coverage for an additional 5 days. Will follow up in 2 days for drain removal and 2 weeks for device education Sammy Moffett MD [facility] Pager: [phone] Office: [phone] Surgical [phone] documented in this encounter Plan of Treatment Not on filedocumented as of this encounter Procedures Procedure Name Priority Date/Time Associated Diagnosis Comme nts INSERTION, PENILE 02/18/2021 9:45 AM CDT Erectile dysf unction PROSTHESIS, INFLATABLE Special Needs PENILE IMPLANT - VESNA TSCHAN N COLOPLAST LAB RESULT - HIM SCAN 02/14/2021 12:00 AM CDT EKG CARDIAC - HIM SCAN 02/14/2021 12:00 AM CDT documented in this encounter Results LAB RESULT - HIM SCAN (02/14/2021 12:00 AM CDT) Specimen (Source) Anatomical Location Collection Method / Collectio n Time Received Time / Laterality Volume 02/14/2021 Narrative This result has an attachment that is no t available. Provider Scan [facility] NON-BEAKER LAB TESTING EKG CARDIAC - HIM SCAN (02/14/2021 12:00 AM CDT) Specimen (Source) Anatomical Location Collection Method / Collectio n Time Received Time / Laterality Volume 02/14/2021 Narrative This result has an attachment that is no t available. Provider Scan ECG ORDERABLES documented in this encounter Visit Diagnoses Diagnosis Other male erectile dysfunction - Primar y Erectile dysfunction Impotence of organic origin documented in this encounter Administered Medications Inactive Administered Medications - up to 3 most recent administrations Medication Order MAR Action Action Date Dose Rate Site acetaminophen (TYLENOL) tablet 975 Given 02/18/2021 8:51 AM CDT 975 mg mg 975 mg, Oral, PRE-OP/PRE-PROCEDURE, Starting on Wed02/18/21 at 0739, For 1 dose, Maximum acetaminophen dose from all sources = 75 mg/kg/day not to exceed 4 grams/day., Pre-procedure bupivacaine (MARCAINE) Given 02/18/2021 10:40 AM 10 mLs Operative Site/Surgical 0.5% injection MDV CDT Site PRN, Starting on Wed02/18/21 at 1040, Intra-procedure celecoxib (celeBREX) capsule 200 mg Given 02/18/2021 8:51 AM CDT 200 mg 200 mg, Oral, PRE-OP/PRE-PROCEDURE, Starting on Wed02/18/21 at 0739, For 1 dose, Pre-procedure fentaNYL (PF) (SUBLIMAZE) injection 50 m cg Given 02/18/2021 12:15 PM CDT 50 mcg 50 mcg, Intravenous, EVERY 5 MIN PRN, severe pain, (7-10), Starting on Wed02/18/21 at 1213, For 3 hours, Up to a total of 200 mcg. Postop anesthesia Phase I only. Nurse to discontinue order when patient discharged from Phase I. Pain medications to be given in following preferential sequence (unless allergic): 1) fentanyl 2) HYDROmorphone. Continue with medication until patient reaches max dose or has adverse or allergic reaction or the Anesthesiologist consulted to move to the next medication. Then proceed to next narcotic in sequence. For ordered IV doses 1-100 mcg give IV Push undiluted over a minimum of 3-5 minutes., PACU gabapentin (NEURONTIN) capsule 300 mg Given 02/18/2021 9:29 AM CDT 300 mg 300 mg, Oral, PRE-OP/PRE-PROCEDURE, Starting on Wed02/18/21 at 0739, For 1 dose, Pre-procedure lidocaine 2% injection Given 02/18/2021 11:24 AM 10 mLs Operative Site/Surgical (MDV) CDT Site PRN, Starting on Wed02/18/21 at 1124, Intra-procedure oxyCODONE (ROXICODONE) tablet 10 mg Given 02/18/2021 12:44 PM CDT 10 mg 10 mg, Oral, ONCE PRN, other, pain control or improvement in physical function.??, Starting on Wed02/18/21 at 1214, For 1 dose, Notify provider to assess for uncontrolled pain or analgesic side effects. oxyCODONE (ROXICODONE) tablet 5 mg 5 mg, Oral, EVERY 4 HOURS PRN, moderate to severe pain, Starting on Wed02/18/21 at 1214, Max: 5 mg for opioid-na??ve patient. topical tissue adhesive Given 02/18/2021 11:25 AM 1 each Operative Site/Surgical (EXOFIN) tube CDT Site PRN, Starting on Wed02/18/21 at 1125, Intra-procedure vancomycin 1500 mg in 0.9% NaCl 250 ml New Bag 02/18/2021 8:48 AM CDT 1,500 mg intermittent infusion 1,500 mg Routine, 1,500 mg (rounded from 1,401 mg = 15 mg/kg ? 93.4 kg), Intravenous, PRE-OP/PRE-PROCEDURE, Starting on Wed02/18/21 at 0739, For 1 dose, Vesicant. Infuse doses less than 1,250 mg over 1 hour. Infuse doses between 1,250 mg and less than 1,750 mg over 90 minutes. Infuse doses 1,750 mg and above over 2 hours. , Indications: Perioperative Pharmacoprophylaxis, Pre-procedure documented in this encounter Active and Recently Administered Medications Times are shown in CDT. Scheduled Medication Order 02/16/2021 02/17/2021 02/18/2021 acetaminophen (TYLENOL) tablet 975 mg (COMPLETED) 08 (Given - Provider: Eilene Calderon RN) 975 mg, Oral, PRE-OP/PRE-PROCEDURE, Star ting on Wed02/18/21 at 0739, For 1 dose, Maximum acetaminophen dose from all sources = 75 mg/kg/day not to exceed 4 grams/day., Pre-procedure celecoxib (celeBREX) capsule 200 mg (COMPLETED) 08 (Given - Provider: Eileen Calderon RN) 200 mg, Oral, PRE-OP/PRE-PROCEDURE, Star ting on Wed02/18/21 at 0739, For 1 dose, Pre-procedure gabapentin (NEURONTIN) capsule 300 mg (COMPLETED) 09 (Given - Provider: Eileen Calderon RN) 300 mg, Oral, PRE-OP/PRE-PROCEDURE, Star ting on Wed02/18/21 at 0739, For 1 dose, Pre-procedure gentamicin (GARAMYCIN) infusion 80 mg (CANCELED) 0800 (Canceled Entry - Provider: Orders Generic Provider - Comment: Automatically canceled at discontinue of medication order)1012 (Given - Provider: Amy Rm) Routine, 80 mg, Intravenous, EVERY 12 HO URS, First dose on Wed02/18/21 at 0800, Indications: Perioperative Pharmacoprophylaxis, Pre-procedure vancomycin 1500 mg in 0.9% NaCl 250 ml i ntermittent infusion 1,500 mg (COMPLETED) 0848 (New Bag - Prov ider: Eileen Calderon RN) Routine, 1,500 mg (rounded from 1,401 mg = 15 mg/kg ? 93.4 kg), Intravenous, PRE-OP/PRE-PROCEDURE, Starting on Wed02/18/21 at 0739, For 1 dose, Vesicant. Infuse doses less than 1,250 mg over 1 hour. In fuse doses between 1,250 mg and less kizzy n 1,750 mg over 90 minutes. Infuse doses 1,750 mg and above over 2 hours. , Indications: Perioperative Pharmacoprophylaxis, Pre-procedure PRN Medication Order 02/16/2021 02/17/2021 02/18/2021 bupivacaine (MARCAINE) 0.5% injection MDV (CANCELED) 1040 (Given - Provider: Sammy Moffett MD) PRN, Starting on Wed02/18/21 at 1040, Intra-procedure fentaNYL (PF) (SUBLIMAZE) injection 50 mcg (CANCELED) 1215 (Given - Provider: Anya Terry RN) 50 mcg, Intravenous, EVERY 5 MIN PRN, se laura pain, (7-10), Starting on Wed02/18/21 at 1213, For 3 hours, Up to a total of 200 mcg. Postop anesthesia Phase I only. Nurse to discontinue order when patient discharged from Phase I. Pain medicatio ns to be given in following preferential sequence (unless allergic): 1) fentanyl 2) HYDROmorphone. Continue with medication until patient reaches max dose or has adverse or allergic reaction or the Anes thesiologist consulted to move to the next medication. Then proceed to next narcotic in sequence. For ordered IV doses 1-100 mcg give IV Push undiluted over a minimum of 3-5 minutes., PACU lidocaine 2% injection (MDV) (CANCELED) 1124 (Given - Provider: Sammy Moffett MD) PRN, Starting on Wed02/18/21 at 1124, Intra-procedure oxyCODONE (ROXICODONE) tablet 10 mg (COMPLETED) 1244 (Given - Provider: Anya Terry RN) 10 mg, Oral, ONCE PRN, other, pain contr ol or improvement in physical function.??, Starting on Wed02/18/21 at 1214, For 1 dose, Notify provider to assess for uncontrolled pain or analgesic side effects. oxyCODONE (ROXICODONE) tablet 5 mg 5 mg, Oral, EVERY 4 HOURS PRN, moderate to severe pain, Starting on Wed02/18/21 at 1214, Max: 5 mg for opioid-na??ve patient. topical tissue adhesive (EXOFIN) tube (CANCELED) 1125 (Given - Provider: Sammy Moffett MD - Comment: abdomen) PRN, Starting on Wed02/18/21 at 1125, Intra-procedure documented in this encounter Care Teams Business Development Coordinator Relationship Specialty Start Date End Date Clinic, [facility] PCP - General 11/15/[address] [place] [id number] documented as of this encounter
--- OUTSIDE RECORDS SUMMARY | 2022-05-06 20:02 | XMS_ITS | Encounter Summary ---
:1970 Author Organization [facility] Address [address] [place] [address]. [place] [address] Care Team Providers Name Role Phone [facility] Primary Care Provide r Encounter Details Date Type Department Care Team Description 11/15/2020 Travel Social History Tobacco Use Types Packs/Day Years [...] / COVID-19? documented as of this encounter Plan of Treatment Not on filedocumented as of this encounter Visit Diagnoses Not on filedocumented in this encounter Care Teams Senior Warehouse Clerk Relationship Specialty Start Date End Date [facility] PCP - General 11/15/[address] [place] [address] documented as of this encounter
--- OUTSIDE RECORDS SUMMARY | 2022-05-06 20:02 | XMS_ITS | Clinical Summary ---
:1970 Author Organization [facility] [place] [address] Care Team Providers Name Role Phone [place], *[facility] Primary Care Provider Unavailable Allergies Active Allergy Reactions Severity Noted Date Comments Mandeep Miller Hives 12/28/2012 Medications Medication Sig Dispensed Refills Start Date End Date Status oxyCODONE-acetaminophen Take 1-2 tablets 30 tablet 0 3 Active , 5-325 mg, (PERCOCET) by mouth every 6 per tablet hours if needed for Pain. Max acetaminophen dose: 4000mg in 24 hrs. acetaminophen (TYLENOL) Take 2 tablets by 0 03/15/20 13 Active 325 mg tablet mouth every 4 hours if needed for Pain (For mild pain.). Max acetaminophen dose: 4000mg in 24 hrs. oxyCODONE-acetaminophen Take 1-2 tablets 20 tablet 0 3 Active , 5-325 mg, (PERCOCET) by mouth every 4 per tablet hours if needed for Pain (For moderate to severe pain). Max acetaminophen dose: 4000mg in 24 hrs. methylPREDNISolone Take by mouth as 1 Package 0 03/15/2013 Active (MEDROL DOSEPAK) 4 mg instructed on the tablet packaging. oxyCODONE-acetaminophen Take 1 tablet by 10 tablet 0 3 Active , 5-325 mg, (PERCOCET) mouth every 4 per tablet hours if needed for Pain. Max acetaminophen dose: 4000mg in 24 hrs. artificial tear 0.3 %, Place 1 Drop into 15 mL 0 3 Active hypromellose, the eye(s) 3 times (MURINEREFRESH ISOPTO daily if needed. TEARS) 0.3 % Drop predniSONE (DELTASONE) Take 3 tablets by 0 3 Active 20 mg mouth once daily tabletIndications: with a meal. Nance's palsy valACYclovir (VALTREX) Take 1 tablet by 0 03/28/2013 Active 1 g tabletIndications: mouth 3 times Nance's palsy daily. artificial Tear, Place 1-2 Drops 1 Tube 0 03/28/2013 Active hypromellose 0.3 % gel, into the eye(s) (GENTEAL) 0.3 % every 2 hours if GelIndications: Nance's needed. palsy methylPREDNISolone Take by mouth as 1 Package 0 03/28/2013 Active (MEDROL, YINA,) 4 mg instructed per tabletIndications: packaging. Nance's palsy fluticasone-salmeterol Inhale 1 Puff by 1 Inhaler 11 05/22/2013 Active (ADVAIR DISKUS) 250-50 mouth every 12 mcg/Dose diskus hours. inhalerIndications: Mild persistent asthma albuterol HFA Inhale 2 Puffs by 1 Inhaler 12 05/22/2013 Active (PRO-AIR,VENTOLIN,PROVE mouth 4 times NTIL) 90 mcg/actuation daily if needed. inhalerIndications: Mild persistent asthma ibuprofen (ADVIL; Take 2 tablets by 0 03/04/2018 Active MOTRIN) 200 mg tablet mouth 2 times daily if needed for Pain. Active Problems Problem Noted Date Acute pharyngitis and laryngitis 03/14/2013 Overview: Formatting of this note is dif ferent from the original. 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 How many drinks containing alcohol do you Not asked have on a typical day when you are drinking? How often do you have six or more drinks on Not asked one occasion? Comment: Beer every other week or so 03/04/2018 Sex Assigned at Date Recorded Not on file Obstetrics History Last Filed Vital Signs Vital Sign Reading Time Taken Comments Blood Pressure 115/76 03/04/2018 3:09 PM CDT Pulse 80 03/04/2018 3:09 PM CDT Temperature 36.2 ??C (97.1 ??F) 05/22/2013 3:50 PM REHABILITATION PROGRAM COORDINATOR Respiratory Rate 20 03/20/2013 12:47 PM CDT Oxygen Saturation 100% 03/20/2013 12:47 PM CDT Inhaled Oxygen Concentration - - Weight 89.4 kg (197 lb) 03/04/2018 3:09 PM CDT Height 180.3 cm (5' 11) 03/04/2018 3:09 PM CDT Body Mass Index 27.48 03/04/2018 3:09 PM CDT Plan of Treatment Health Maintenance Due Date Last Done Comments COVID-19 vaccine series (#1) 1969 Depression screening for age 12+ 1981 Hepatitis C screening for age 18-79 1987 Colonoscopy through age 75 2014 Lipids for age 45-75 2014 BMI (ht and wt on same day) for age 18+ 03/04/2019 03/04/20 18 Zoster (shingles) series for age 50+ (1 of 2) 2019 Influenza for age 50-64 03/05/2022 Tetanus booster 03/28/2022 03/28/2012 Tdap Completed 03/28/2012 Results Not on filefrom Last 3 Months Additional Health Concerns Infection Onset Date Last Indicated COVID HistoryComment: COVID+ test result dates: 12/16/2020 12/16/2020 11/03/20 [facility] Patient met COVID clearance criteria on 12/16/20. For evaluation of subsequent COVID+ results, refer to the algorithm on the AKN: Isolation Precaution Recommendations for Patients with History of COVID-19 Infection. Insurance Payer Benefit Plan / Subscriber ID Effective Phone Address T ype Group Dates [place] [id number] 2011-Pres [address] [address] [place] [address] WC WORKERS WC WORKERS COMP [id number] 2012-Pres [phone] [address] [address] COMP ent [address] [place] [address] WC WORKERS WC MOTA [id number] 2020-Pres [address] [place] [place] [address] BLUE CROSS [place] BLUE ADVANTAGE [id number] 2019-Prese [address] [address] [place] [address] [place]ICA[place] MEDICA[place] [id number] 2018-Pres [address] [place] [address] BLUE CROSS BLUE CROSS OF [id number] 2013-Prese [id number] [place] [address] BLUE CROSS BLUE CROSS OF [id number] 2020-Pres [id number] [place] [address] BLUE CROSS BLUE CROSS OF [id number] 2013-Pre [address] [place] sent [id number] [place] [address] Advance Directives Latest Code Status on File Code Status Date Activated Date Inactivated Comments Full Code 03/14/2013 9:49 AM 03/15/2013 12:55 PM Care Teams Stonecutter Apprentice Hand Relationship Specialty Start Date End Date [place]orph[place], *[facility] PCP - General 12/03/20
--- OUTSIDE RECORDS SUMMARY | 2022-05-06 20:02 | XMS_ITS | Encounter Summary ---
:1970 Author Organization [facility] Address [address] [place] [address]. [place] [address] Care Team Providers Name Role Phone Unavailable Primary Care Provider Unavailable Encounter Details Date Type Department Care Team Description 06/12/2010 Emergency room [facility] Results EMERGENCY PHYSI IRAM GABRIEL [address] [place], [place] [address] Social History Tobacco Use Types Packs/Day Years Used Date Smoking Tobacco: Never Assessed Sex Assigned at Date Recorded Not on file documented as of this encounter Progress Notes Interface, Credit Administration Specialist - 06/12/2010 4:13 AM FLEXO PRESS OPERATOR FINAL Chief Complaint - History of Present Illness - MD Time:: 22:48 - Chief Complaint: Left hand pain - HPI: Rosalva Thomas is a 40 y.o. male with a history of traumatic 05/17 left hand injury due to snowblower incident who underwent hand surgery on 06/10/2010 who presents to the ED for evaluation of left hand and fingers pain. Of note, patient had partial amputation of his left second and third finger distal phalynx/linda, a deep laceration of his third and fracture of his fourth finger for which he had suturing and wound dressing in the ER. After being discharged, he followed up with orthopedics and had a surgery done yesterday. He has been having intermittent shooting left hand pain since the surgery as he describes it as a stinging pain and rates it as 10/10 in severity. This primarily affects his 2nd and 34d digitis. His sister adds that patient has a low pain tolerance. He reports taking Percocet at home around 1999 this evening with no relief of his pain. He also states that he spoke to the doctor summer sessions director for his surgeon, Dr. Stark and was told to come to the emergency department for pain relief. Here in the ED, he reports that his finger tips sting and says that he needs pain medications for him to sleep tonight because he was not able to sleep last night due to his pain. Furthermore, his sister claims that patient had an episode of vomiting this morning around 0530 am. Patient himself also notes having some nausea in addition to his left hand/fingers pain. Medications - Medication: Celexa - Medication: Percocet - Medication: Robaxin - Medication: Advil - Medication: Albuterol Allergies Chocolate; Hives No Known Drug; None Past Medical/Family History - PMH is positive for: Asthma, Hand surgery 06/10/2010 Social History - Is positive for Alcohol use - - The patient is here with his sister. - Is negative for Tobacco use, Illicit drug use Review of Systems - - All other systems negative except - Gastrointestinal Positive for nausea, Positive for vomiting - ROS Note Positive for left fingers pain. Vital Signs-Triage Temp F: 98.6 degrees F Temp C: 37 degrees C Temp site: Oral Heart Rate: 69 bpm Resp Rate: 18 Pulse Oximetry: 97 Oxygen Delivery: Room air Cuff Systolic BP mmH Cuff Diastolic BP mmH Physical Exam - Constitutional Uncomfortable appearing male. - HENT normal - Eyes normal - Neck range of motion normal - Pul/Chest Wall no respiratory distress present - Musculoskeletal Left hand shows bandaged 4th and 5th fingers, index and long fingers have been partially undressed, distal phalanx has adherent adaptive gauze which was not removed as he had grafting procedure done. No sign of infections, drainage, bleeding noted. Index and long fingers show mild swelling but are soft and well perfused. - Neurologic alert, oriented x3; sensation intact to fingers. motor function not assessed. - Psychiatric affect normal ED Course: Interventions/Consultations/Procedures - -: Interventions: Zofran 4mg IV injection Dilaudid 2mg IV injection Ativan 2mg PO ED Course: I reviewed the patient's medical record. 2247 The patient was seen and examined by myself. On Recheck. The patient felt improved after the above interventions. The patient will be discharged home to follow up with primary care doctor per discharge instructions. Indications for return to the ED were discussed and the patient understands. All questions were answered prior to discharge. The patient will take the prescribed medications including Colace, Ativan and OxyContin as directed. Medical Decision Making - -: Rosalva Thomas is a 40 y.o. male with intractable left index and long finger pain status post 06/10/2010 surgery. Clinically on exam, there is no evidence for a post-op infection or complications. There was some gauze adhered to distal phalanx of each of these digits which was not removed as he had apparent grafting procedures done. Unfortunately, his symptoms have been difficult to control here. He has been aggressively managed with Zofran, 2 mg of Dilaudid, and finally couple mg of Ativan as above. It is noted that he has baseline anxiety and his sister pulled me aside and did confide in me that he in general has a low pain tolerance. Nonetheless, his pain seems to be out of proportion to his exam and I have recommended that he contact his surgeon Dr. Tovar tomorrow morning to schedule an early follow up appointment for reassessment then. His fingers were re-dressed and he is being discharged with a following plan. PLAN OF INTERIM CARE AND FOLLOW-UP: OxyContin 10 mg BID, this can be increased to 20 mg if necessary. Ativan as needed for anxiety. Continue his other medications as prescribed. Contact Dr. Tovar tomorrow. Diagnosis - -: 1. Left hand pain status post 06/10/2010 surgery Scribe Disclosure I, Hilton Starks ,am serving as a scribe to document services personally performed by Dr. Karma Nuñez , based on my observations and the provider's statements to me. Electronically signed on 06/12/2010 04:12 by KARMA NUÑEZ MD As dictated by HILTON ESPINO MT: Name: ROSALVA THOMAS Account: [id number] : 1970 Visit Date: 06/12/2010 Document: [id number] O PRESS OPERATOR documented in this encounter Plan of Treatment Not on filedocumented as of this encounter Visit Diagnoses Not on filedocumented in this encounter
--- OUTSIDE RECORDS SUMMARY | 2022-05-06 20:02 | XMS_ITS | Encounter Summary ---
:1970 Author Organization [facility] Address [address] [place] [address]. [place] [address] Care Team Providers Name Role Phone [facility], [facility] Primary Care Provide r Encounter Details Date Type Department Care Team Description 02/18/2021 Travel Social History Tobacco Use Types Packs/Day [...] on filedocumented in this encounter Care Teams Fat Purification Worker Relationship Specialty Start Date End Date [facility] PCP - General 11/15/[address] [place] [id number] documented as of this encounter
--- OUTSIDE RECORDS SUMMARY | 2022-05-06 20:02 | XMS_ITS | Clinical Summary ---
:1970 Author Organization [facility] Address [address] [place] [address]. [place] [address] Care Team Providers Name Role Phone Clinic, [facility] Primary Care Provide r Allergies Active Allergy Reactions Severity Noted Date Comments Cat Hair Extract 07/02/2009 Other react ion(s): Other (see comments) Eye swelling, s neezing. Chocolate High 09/05/2020 Other reaction( s): hives [place] Hives 07/02/2009 Hives. Medications Medication Sig Dispensed Refills Start Date End Date Status albuterol (2.5 Take 1 ampule by 0 Active MG/3ML) 0.083% nebulization daily nebulizer solution as needed celecoxib (CELEBREX) Take 200 mg by mouth 0 Active 200 MG capsule daily FLUoxetine (PROZAC) Take 60 mg by mouth 0 Active 20 MG capsule daily (20MG X 3 = 60MG) fluticasone (FLOVENT Inhale 1 puff into 0 Active HFA) 110 MCG/ACT the lungs 2 times inhaler daily gabapentin Take 900 mg by mouth 0 Active (NEURONTIN) 300 MG 3 times daily (300MG capsule X 3 = 900MG) ipratropium - Take 1 vial by 0 A ctive albuterol 0.5 mg/2.5 nebulization every 4 mg/3 mL (DUONEB) hours as needed 0.5-2.5 (3) MG/3ML neb solution sildenafil (VIAGRA) Take 100 mg by mouth 0 Active 100 MG tablet daily as needed traZODone (DESYREL) Take 50 mg by mouth 0 Active 50 MG tablet At Bedtime budesonide-formotero Inhale 2 puffs into 0 Active l (SYMBICORT) the lungs every 160-4.5 MCG/ACT morning Inhaler montelukast Take 10 mg by mouth 0 Active (SINGULAIR) 10 MG every evening tablet melatonin 3 MG Take 3 mg by mouth 0 Active tablet nightly as needed for sleep sulfamethoxazole-tri Take 1 tablet by 10 tablet 0 02/18/2021 Active methoprim (BACTRIM mouth 2 times daily DS) 800-160 MG tabletIndications: Other male erectile dysfunction Social History Tobacco Use Types Packs/Day Years Used Date Smoking Tobacco: Former Cigarettes Smokeless Tobacco: Never Alcohol Use Standard Drinks/Week Comments No 0 (1 standard drink = 0.6 oz pure alcoho l) Sex Assigned at Date Recorded Not on file Last Filed Vital Signs Vital Sign Reading Time Taken Comments Blood Pressure 113/68 02/18/2021 1:00 PM CDT Pulse 76 02/18/2021 1:00 PM CDT Temperature 35.6 ??C (96 ??F) 02/18/2021 11:49 AM CDT Respiratory Rate 16 02/18/2021 1:00 PM CDT Oxygen Saturation 93% 02/18/2021 1:00 PM CDT Inhaled Oxygen Concentration - - Weight 93.4 kg (206 lb) 02/18/2021 7:41 AM CDT Height 180.3 cm (5' 11) 02/18/2021 7:41 AM CDT Body Mass Index 28.73 02/18/2021 7:41 AM CDT Plan of Treatment Health Maintenance Due Date Last Done Comments ADVANCE CARE PLANNING 1970 ANNUAL REVIEW OF HM ORDERS 1969 CT COLONOGRAPHY 1969 FIT-DNA (Cologuard) 1969 FIT 1970 FLEX SIG 1970 HEPATITIS B IMMUNIZATION (1 of 3 - 1970 3-dose series) YEARLY PREVENTIVE VISIT 1969 COVID-19 Vaccine (#1) 1969 COLONOSCOPY 1979 COLORECTAL CANCER SCREENING 1979 HIV SCREENING 1984 HEPATITIS C SCREENING 1987 LIPID 2004 LUNG CANCER SCREENING 2019 ZOSTER IMMUNIZATION (1 of 2) 2019 PHQ-2 (once per calendar year) 2021 INFLUENZA VACCINE (#1) 2022 DTAP/TDAP/TD IMMUNIZATION (2 - Td 03/28/2022 03/28/2012 or Tdap) Pneumococcal Vaccine: Pediatrics Aged Out 03/15/2013 No longer eligible based on (0 to 5 Years) and At-Risk patie nt's age to complete Patients (6 to 64 Years) this to pic IPV IMMUNIZATION Aged Out No longer eligi ble based on patient's age to complete this topic MENINGITIS IMMUNIZATION Aged Out No longe r eligible based on patient's age to complete this topic Medical Devices Implanted Type Area Financial Services Officer Device Shelf Model / Identifier Expiration Serial / Date Lot Imp Prosthesis Penile Titan Std Assembly Kit [id number] - [id number] Penile N/A: COLOPLAST 08/28/2025 [id number] / Implanted: Qty: 1 on 02/18/2021 by Sammy Moffett MD at [facility] Implant Penis [id number] / [id number] Parchment Titan Cl [id number] - [id number] Pump N/A: COLOPLAST 11/25/2025 [id number] / Implanted: Qty: 1 on 02/18/2021 by Sammy Moffett MD at [facility] Penis [id number] / [id number] Cylinder Set With Pump N/A: COLOPLAST 10/28/2025 [id number] / Implanted: Qty: 1 on 02/18/2021 by Sammy Moffett MD at [facility] Penis [id number] / [id number] Insurance Payer Benefit Plan / Subscriber ID Effective Phone Address T ype Group Dates BLUE PLUS BLUE PLUS [id number] 2019-Prese [phone] [address] HMO ADVANTAGE [address] [place] [address] [place] [id number] 2012-Prese [phone] [address] Medicaid nt [address] [place] [address] Care Teams Plumbing Inspector Relationship Specialty Start Date End Date Clinic, [facility] PCP - General 11/15/20 [address] [place] [address]
--- OUTSIDE RECORDS SUMMARY | 2022-05-06 20:02 | XMS_ITS | Encounter Summary ---
:1970 Author Organization [place] Address [facility] [place] [address] Care Team Providers Name Role Phone Clinic, [facility] Primary Care Provide r Reason for Visit Auth/Cert Specialty Diagnoses / Procedures Referred By Contact Refer red To Contact Surgery Diagnoses Erectile dysfunction Erectile dysfunction [N52.9] Sh Periop Services Procedures ZZC INSERT SELF-CONTD PENILE PROSTHESIS ZZC INSERT MULTI-COMPON PENILE PROSTHE INSERTION, PENILE PROSTHESIS, INFLATABLE [address] [place] [address] Phone: Referral ID Status Reason Start Date Expiration Date Visits Requ ested Visits Authorized [id number] 1 1 Encounter Details Date Type Department Care Team Description 02/18/2021 Hospital Encounter [facility] Sammy Moffett [facility] er male erectile Maria E Bingham MD dysfunction (Primary PreOP/Phase II [place] Dx) [address] [facility]OLOG[facility] [address] [address] [place] [address] [phone] Social History Tobacco Use Types Packs/Day Years [...] or school ?? Do Not go to judaism, early childhood specialist centers, shopping, or other public places. ?? [...] at home, please visit the CDCwebsite at https://www.cdc.gov/coronavirus/2019-ncov/about/qdlmi-bpyq-uuds.html For more options for care at [facility], please visit our website at [email or web address] Reasons to contact your surgeon: 1. Signs [...] about your procedure, call Dr. Moffett at [phone] documented in this encounter Medications at Time [...] of this encounter Progress Notes Farheen Collins M - 02/17/2021 1:18 PM CDT SAUSAGE MEAT TRIMMER medications updated by Medication Scribe prior to [...] documented in this encounter Nursing Notes Anya Terry, ESTHER - 02/18/2021 1:21 PM CDT Weighted bag [...] Moffett MD (Primary) Stephen Robert Maciel MD Home Appliance Washing Machine Mechanic: Helene Franz RN PREOP DIAGNOSIS: Erectile Dysfunction POSTOP DIAGNOSIS: Same Procedure(s): INSERTION OF INFLATABLE PENILE PROSTHESIS ANESTHESIA General COMPLICATIONS: None FINDINGS 20 cm Coloplast Titan IPP, 76 ml of sterile injectable saline used to fill the reservoir in the right submuscular location. SPECIMEN None IMPLANT 1. 20 cm Coloplast Titan IPP 2. 76 ml Mosby 3. Scrotal Pump EBL 20 cc INDICATIONS [...] .I next placed a Bernabe catheter 16 Afghan coud?? type without difficulty and clear urine [...] weeks for device education Sammy Moffett MD [facility] Pager: [phone] Office: [phone] Surgical [phone] documented in this encounter Plan of Treatment [...] Other male erectile dysfunction - Primar y documented in this encounter Administered Medications Inactive [...] grams/day., Pre-procedure celecoxib (celeBREX) capsule 200 mg Given 02/18/2021 [...] Wed02/18/21 at 0739, For 1 dose, Pre-procedure oxyCODONE (ROXICODONE) tablet 10 mg Given 02/18/2021 [...] 1214, Max: 5 mg for opioid-na??ve patient. vancomycin 1500 mg in 0.9% NaCl 250 [...] 02/18/2021 acetaminophen (TYLENOL) tablet 975 mg (COMPLETED) 0851 (Given - Provider: Eileen Calderon RN) 975 mg, Oral, PRE-OP/PRE-PROCEDURE, Star ting on Wed02/18/21 at 0739, For 1 dose, Maximum acetaminophen dose from all sources = 75 mg/kg/day not to exceed 4 grams/day., Pre-procedure celecoxib (celeBREX) capsule 200 mg (COMPLETED) 08 (Given - Provider: Eileen Calderon, ESTHER) 200 mg, Oral, PRE-OP/PRE-PROCEDURE, Star ting on Wed02/18/21 at 0739, For 1 dose, Pre-procedure gabapentin (NEURONTIN) capsule 300 mg (COMPLETED) 928 (Given - Provider: Eileen Calderon, ESTHER) 300 mg, Oral, PRE-OP/PRE-PROCEDURE, Star ting on [...] ml i ntermittent infusion 1,500 mg (COMPLETED) 847 (New Bag - Prov ider: Eileen Calderon [...] Intra-procedure documented in this encounter Care Teams Ticket Clerk Relationship Specialty Start Date End Date [facility], [facility] PCP - General 11/15/[address] [place], [place] [id number] documented as of this encounter
--- OUTSIDE RECORDS SUMMARY | 2022-05-06 20:02 | XMS_ITS | Encounter Summary ---
:1970 Author Organization [place] Address [address] [place] [address] Care Team Providers Name Role Phone [facility], [facility] Primary Care Provide r Encounter Details Date Type Department Care Team Description 02/04/2021 Orders Only [facility] Sammy Moffett Encounter for Maria E Arriola OR MD Zachery screening for other [address] [facility] [place] [address] [place] [phone] [address] [place] [address] Social History Tobacco Use Types Packs/Day Years [...] diseases documented in this encounter Care Teams Automatic Nailing Machine Feeder Relationship Specialty Start Date End Date Clinic, [facility] PCP - General 11/15/[address] [place] [id number] documented as of this encounter
--- OUTSIDE RECORDS SUMMARY | 2022-05-06 20:02 | XMS_ITS | Encounter Summary ---
:1970 Author Organization [facility] Address [address] [place] [address]. [place] [address] Care Team Providers Name Role Phone [facility], [facility] Primary Care Provider Unav ailable Reason for Visit Reason Comments Flank Pain Encounter Details Date Type Department Care Team Description 07[facility]2012 [facility] Emergency Dep arnulfo Donaldson MD [address] EMERGENCY PHYSIC[facility] [phone] [address] [facility] [phone] [place], [place] [address] (Wo rk) Social History Tobacco Use Types Packs/Day Years Used Date Smoking Tobacco: Never Assessed Sex Assigned at Date Recorded Not on file documented as of this encounter Last Filed Vital Signs Vital Sign Reading Time Taken Comments Blood Pressure 131/74 07/12/2012 7:23 PM PRODUCTION ASSOCIATE Pulse 70 07/12/2012 7:23 PM PRODUCTION ASSOCIATE Temperature 36.4 ??C (97.6 ??F) 07/12/2012 4:35 PM PRODUCTION ASSOCIATE Respiratory Rate 16 07/12/2012 7:23 PM PRODUCTION ASSOCIATE Oxygen Saturation 98% 07/12/2012 7:23 PM PRODUCTION ASSOCIATE Inhaled Oxygen Concentration - - Weight - - Height - - Body Mass Index - - documented in this encounter Discharge Instructions Discharge InstructionsItz Caputo MD - 07/12/2012 7:14 PM PRODUCTION ASSOCIATE Images from the original note were not included. Please make an appointment to follow up with your primary care pediatrician in 1-2 days if not improving and return to the ED immediately if your symptoms worsen in any way. Home Back SP SHINGLES Anyone who has had chicken pox may get shingles later in life. It is caused by the same virus that has remained dormant (asleep) in your body. Shingles usually occurs in adults over the age of 50 or those with lowered immunity (cancer treatment, prolonged steroid use, HIV or AIDS). It starts as a tingling patch of skin on one side of the body. During the first several days small painful blisters appear in this area. However, unlike chicken pox the rash does not spread to the restof the body. The blister fluid contains the virus. Exposure to shingles cannot cause shingles. However, it can cause chicken pox in anyone who has never had chicken pox before. The contagious period ends when all blisters have crusted over (usually about two weeks after the illness begins). Scarring may occur where the blisters appear. Sometimes there is continued sensitivity and pain in the involved patch of skin for months after the infection (neuralgia). Persons older than 50 or those with a weakened immune system may be treated with antiviral medicines to reduce pain, shorten the illn ess and prevent neuralgia. Zostavax is a vaccine that can help prevent shingles or make it less painful. It is recommended for adults over the age of 60 who have had chicken pox in the past, but not shingles. Adults over 60 who have had neither chicken pox nor shingles can prevent both diseases with a Varicella vaccine. HOME CARE: ?? You may use acetaminophen (Tylenol) or ibuprofen (Motrin, Advil) to control pain, unless another medicine was prescribed. [NOTE: If you have chronic liver or kidney disease or ever had a stomach ulcer or GI bleeding, talk with your doctor before using these medicines.] (Aspirin should never be usedin anyone under 18 years of age who is ill with a fever. It may cause severe liver damage.) ?? To relieve itching and pain, make a solution of cool water mixed with cornstarch, baking soda, Aveeno Oatmeal, or Domeboro powder (available without a prescription). Apply the solution as a compressto the area. This will soothe the skin. Calamine or Caladryl lotion may help. ?? Oral Benadryl (diphenhydramine) is an antihistamine available at drug and grocery stores. Unless a prescription antihistamine was given, Benadryl may be used to reduce itching if large areas of the skin are involved. Use lower doses during the daytime and higher doses at bedtime since the drug may make you sleepy. [NOTE: Do not use Benadryl if you have glaucoma or if you are a man with trouble urinating due to an enlarged prostate.] Claritin (loratidine) is an antihistamine that causes less drowsiness and is a good alternative for daytime use. ?? Wash skin with soap and water to keep rash free of infection. Trim fingernails to prevent scratching. Scratching the sores may leave scars. ?? Stay home from work or school until all blisters have formed a crust and you are no longer contagious. FOLLOW UP with your doctor or as directed by our staff if the above measures do not bring relief. GET PROMPT MEDICAL ATTENTION if any of the following occur:? Headache or stiff neck ?? Increasing drowsiness, confusion or bizarre behavior ?? Cough with trouble breathing or fast breathing (over 25 breaths per minute) ?? Pain, redness or swelling of a joint ?? Fever of 100.4??F (38??C) or higher, or as directed by your healthcare provider ?? Eye pain or changes in vision or sores that appear near the eye ?? Signs of skin infection (yellow or white drainage from the sores, increasing redness or pain) ?? Weakness or numbness of an arm or leg ?? Difficulty speaking, swallowing or walking ?? Seizure ?? [id number] [facility], [address] [place] [address]. All rights reserved. This information is not intended as a substitute for professional medical care. Always follow your healthcare professional's instructions. UCTION ASSOCIATE documented in this encounter Medications at Time of Discharge Medication Sig Dispensed Refills Start Date End Date acyclovir (ZOVIRAX) 800 Take 1 tablet by 35 tablet 0 201203/12/2013 MG tablet mouth 5 times daily. albuterol (PROAIR HFA, Inhale 2 puffs into 0 03/12/2013 PROVENTIL HFA, VENTOLIN the lungs every 6 HFA) 108 (90 BASE) hours as needed. MCG/ACT inhaler ibuprofen (ADVIL,MOTRIN) Take 3 tablets by 60 tablet 0 02/201303/12/2013 200 MG tablet mouth every 8 hours as needed for pain. IBUPROFEN PO Take by mouth. 0 03/12/20 13 NO ACTIVE MEDICATIONS 0 oxyCODONE-acetaminophen Take 1 tablet by 20 tablet 0 201203/12/2013 (PERCOCET) 5-325 MG per mouth every 6 hours tablet as needed for pain. documented as of this encounter ED Notes Itz Caputo MD - 07/12/2012 5:41 PM CST History Chief Complaint: Flank Pain HPI Don Thomas is a 42 year old male who presents with flank pain. The patient states he has been experiencing constant, intense right flank pain for the past four days. He explains he was brushing his teeth at the time of onset when he suddenly felt the sharp, flank pain and currently rates the painas an 8/10 in severity. He indicates the pain is exacerbated with deep breaths and exertion as well as light touch to the skin area. The patient denies nausea, vomiting, fevers, chills, urinary symptoms, or any other concerns. Allergies: NKDA Medications: Albuterol Ibuprofen Past Medical History: The patient does not have any pertinent past medical history. Past Surgical History: The patient does not have any pertinent past surgical history. Family History: No past pertinent family history. Social History: The patient is here with his friend. The patient lives in [place], [place]. Review of Systems Constitutional: Negative for fever and chills. Respiratory: Negative for shortness of breath. Cardiovascular: Negative for chest pain. Gastrointestinal: Negative for nausea and vomiting. Genitourinary: Positive for flank pain. Negative for dysuria, hematuria and enuresis. All other systems reviewed and are negative. Physical Exam First Vitals: BP: 133/84 mmHg Heart Rate: 73 Temp: 97.6 ??F (36.4 ??C) Resp: 16 SpO2: 100 % Physical Exam Constitutional: He is oriented to person, place, and time. He appears well- developed and well-nourished. No distress. HENT: Head: Normocephalic and atraumatic. Mouth/Throat: Oropharynx is clear and moist. No oropharyngeal exudate. Eyes: Conjunctivae and EOM are normal. Pupils are equal, round, and reactive to light. Right eye exhibits no discharge. Left eye exhibits no discharge. No scleral icterus. Neck: Normal range of motion. Neck supple. No JVD present. No tracheal deviation present. No thyromegaly present. Cardiovascular: Normal rate, regular rhythm and normal heart sounds. No murmur heard. Pulmonary/Chest: Effort normal and breath sounds normal. No stridor. No respiratory distress. He hasno wheezes. He has no rales. He exhibits no tenderness. Abdominal: Soft. Bowel sounds are normal. He exhibits no distension. There is no tenderness. There is no guarding. Musculoskeletal: Normal range of motion. He exhibits no edema and no tenderness. Tenderness to light touch in the right paraspinal and right flank regions with areas of raised erythema, stripped like, across the right flank extending over the right abdomen. The pain does not cross over the midline spine. Lymphadenopathy: He has no cervical adenopathy. Neurological: He is alert and oriented to person, place, and time. No cranial nerve deficit. He exhibits normal muscle tone. Coordination normal. Skin: Skin is warm and dry. No rash noted. He is not diaphoretic. No erythema. Psychiatric: He has a normal mood and affect. His behavior is normal. Thought content normal. Emergency Department Course Imaging: Right ribs/chest XR: Normal, no signs of fracture. Laboratory: CBC: WNL (WBC 6.6, HGB 15.8, PLT 218) CMP: WNL (Creatinine 1.06) UA: pH urine 7.5 high, mucous urine present, amorphous crystals many o/w negative Interventions: Hydromorphone 1 mg IV NS 1 L IV Ondansetron 8 mg IV Ketorolac 30 mg IV Emergency Department Course: 1739 The patient was examined here in the Emergency Department by myself, findings above. IV inserted and blood drawn. The patient was placed on continuous cardiac monitoring and pulse oximetry. The patient was sent for a right ribs/chest XR while in the emergency department, findings above. 1924 I discussed the plan of outpatient treatment with the patient and he is agreeable to this. I answered all questions. Rechecked the patient, findings and plan explained to the patient. Patient discharged home, status improved, with instructions regarding supportive care, medications, and reasons to return as well as the importance of close follow-up was reviewed. Impression & Plan Medical Decision Making: This is a 42 year old gentleman with no significant medical problems presenting with shingles like rash on his right flank and pain consistent with shingles. Differential includes pneumonia, chest XR negative, no white count, no respiratory difficulty, also gallbladder disease or liver disease, UTI, py elonephritis, kidney stones. CMP was within normal limits with no abnormal liver functions or abnormal bilirubin. UA was negative with no blood cells and pain not consistent with nephrolithiasis. Givenhis tenderness to light palpation over the skin and the rash, it is very stereotypical that this is most likely shingles. Diagnosis: 1. Shingles. Plan: Analgesia, acyclovir, follow up with primary in 3 days for recheck. I, Sukhi Davenport, am serving as a scribe on 07/12/2012 at 5:41 PM to personally document services performed by Dr. Caputo based on my observations and the provider's statements to me. Sukhi Davenport 07/12/2012 [facility] Itz Caputo MD 07/12/12 2849 UCTION ASSOCIATE Breanne Isaac RN - 07/12/2012 4:33 PM CST Side pain started last , constant. Denies any urinary problems. UCTION ASSOCIATE documented in this encounter Plan of Treatment Not on filedocumented as of this encounter Procedures Procedure Name Priority Date/Time Associated Comments Diagnosis XR RIBS & CHEST RT 3VW STAT 07/12/2012 6:37 PM Results for this PRODUCTION ASSOCIATE procedure are i n the results section. COMPREHENSIVE STAT 07/12/2012 6:10 PM Results for this METABOLIC PANEL PRODUCTION ASSOCIATE procedure ar e in the results section. CBC WITH PLATELETS STAT 07/12/2012 6:10 PM Res ults for this PRODUCTION ASSOCIATE procedure are i n the results section. ROUTINE UA WITH STAT 07/12/2012 4:35 PM Result s for this MICROSCOPIC PRODUCTION ASSOCIATE procedure are i n the results section. documented in this encounter Results Ribs XR, unilat 3 views + PA chest, right (07/12/2012 6:37 PM PRODUCTION ASSOCIATE) Anatomical Region Laterality Modality Chest Right Other Specimen (Source) Anatomical Collection Method Collection Time Re ceived Time Location / / Volume Laterality 07/12/2012 6:37 PM PRODUCTION ASSOCIATE Impressions 07/13/2012 7:26 AM PRODUCTION ASSOCIATE IMPRESSION: No radiographic evidence of acute rib fracture. The lungs are clear. Heart and mediastinum are unr emarkable. BILL BREEN MD Narrative 07/13/2012 7:26 AM PRODUCTION ASSOCIATE RIBS UNILAT G/E 3 VIEW + PA CHEST RIGHT 07/12/2012 6:37 PM HISTORY: Pain. COMPARISON: None. Procedure Note Bill Breen MD - 07/13/2012 RIBS UNILAT G/E 3 VIEW + PA CHEST RIGHT 07/12/2012 6:37 PM HISTORY: Pain. COMPARISON: None. IMPRESSION IMPRESSION: No radiographic evidence of acute rib fracture. The lungs are clear. Heart and mediastinum are unr emarkable. BILL BREEN MD Itz Caputo MD IMG DIAGNOSTIC IMAGING ORDER ROB Comprehensive metabolic panel (07/12/2012 6:10 PM PRODUCTION ASSOCIATE) athologist Signature Sodium 136 133 - 144 [facility] mmol/L [facility] Potassium 3.9 3.4 - 5.3 [facility] mmol/L [facility] Chloride 105 94 - 109 [facility] mmol/L [facility] Carbon Dioxide 24 20 - 32 [facility] mmol/L [facility] Anion Gap 7 6 - 17 [facility] mmol/L [facility] Glucose 90 60 - 99 [facility] mg/dL [facility] Urea Nitrogen 12 5 - 24 [facility] mg/dL [facility] Creatinine 1.06 0.66 - [facility] 1.25 mg/dL [facility] GFR Estimate 76 >60 [facility] mL/min/1.7 [facility] m2 [facility] GFR Estimate If >90 >60 [place] Black mL/min/1.[address] LAB Calcium 9.2 8.5 - 10.4 [facility] mg/dL [facility] Bilirubin Total 0.4 0.2 - 1.3 [facility] mg/dL [facility] Albumin 4.1 3.9 - 5.1 [place] g/dL [facility] Protein Total 7.2 6.8 - 8.8 [place] g/dL [facility] Alkaline 93 40 - 150 [place] Phosphatase U/L [facility] ALT 39 0 - 70 U/L [facility] AST 24 0 - 45 U/L [facility] Specimen Anatomical Collection Method Collection Time Receive d Time (Source) Location / / Volume Laterality Blood specimen 07/12/2012 6:10 PM 013 6:14 (specimen) PRODUCTION ASSOCIATE PM PRODUCTION ASSOCIATE Itz Caputo MD LAB - BLOOD ORDERABLES Performing Organization Address City/[facility] Phon e Number [facility] [address] [place], [place] [address] [facility] CBC (platelets, no diff) (07/12/2012 6:10 PM PRODUCTION ASSOCIATE) P athologist Signature WBC 6.6 4.0 - 11.0 [place] 10e9L [facility] RBC Count 4.90 4.4 - 5.9 [place] 10e12/L [facility] Hemoglobin 15.8 13.3 - [place] 17.7 g/dL [facility] Hematocrit 44.7 40.0 - [place] 53.0 % [facility] MCV 91 78 - 100 [facility] MCH 32.2 26.5 - [facility] 33.0 pg [facility] MCHC 35.3 31.5 - [place] 36.5 g/dL [facility] RDW 12.1 10.0 - [place] 15.0 % [facility] Platelet Count 218 150 - 450 [place] 10e9/[facility] Specimen Anatomical Collection Method Collection Time Receive d Time (Source) Location / / Volume Laterality Blood specimen 07/12/2012 6:10 PM 013 6:14 (specimen) PRODUCTION ASSOCIATE PM PRODUCTION ASSOCIATE Itz Caputo MD LAB - BLOOD ORDERABLES Performing Organization Address City/[facility]/ZIP [facility] Phon e Number [facility] [address] [place], [place] [address] [facility] (ABNORMAL) Routine UA with microscopic (07/12/2012 4:35 PM PRODUCTION ASSOCIATE) [facility] gist Method Time Signature Color Urine Yellow [facility] Appearance Urine Slightly [place] Cloudy [facility] Glucose Urine Negative NEG mg/dL [facility] Bilirubin Urine Negative NEG [facility] Ketones Urine Negative NEG mg/dL [facility] Specific [place] 1.016 1.003 - [place] Urine 1.035 [facility] Blood Urine Negative NEG [facility] pH Urine 7.5 (H) 5.0 - 7.0 [place] pH [facility] Protein Albumin Negative NEG mg/dL [place] Urine [facility] Urobilinogen Normal 0.0 - 2.0 [place] mg/dL mg/dL [facility] Nitrite Urine Negative NEG [facility] Leukocyte Negative NEG [place] Esterase Urine [facility] Source Midstream [place] Urine [facility] WBC Urine <1 0 - 2 [facility] RBC Urine 1 0 - 2 [facility] Mucous Urine Present (A) NEG /LPF [facility] Amorphous Many (A) NEG /HPF [place] Crystals [facility] Specimen Anatomical Collection Method Collection Time Receive d Time (Source) Location / / Volume Laterality Urine specimen URINE SPECIMEN 07/12/2012 4:35 PM 07/12 4:47 (specimen) OBTAINED BY CLEAN PRODUCTION ASSOCIATE PM PRODUCTION ASSOCIATE CATCH PROCEDURE / Unknown Andrez Beckford MD LAB - URINE ORDERABLES Performing Organization Address City/State/ZIP Code Phon e Number [place] [address] [place], [place] [address] [facility] documented in this encounter Visit Diagnoses Diagnosis Shingles - Primary Herpes zoster without mention of complic ation documented in this encounter Administered Medications Inactive Administered Medications - up to 3 most recent administrations Medication Order MAR Action Action Date Dose Rate Site HYDROmorphone (PF) (DILAUDID) Given 07/12/2012 6:16 PM PRODUCTION ASSOCIATE 1 mg injection 1 mg 1 mg, Intravenous, EVERY 1 HOUR PRN, moderate to severe pain, Starting on Wed07/12/12 at 1752 ketorolac (TORADOL) injection 30 mg Given 07/12/2012 6:47 PM PRODUCTION ASSOCIATE 30 mg 30 mg, Intravenous, ONCE, On e 07/12/12 at 1845, For 1 dose ondansetron (ZOFRAN) injection 8 mg Given 07/12/2012 6:15 PM PRODUCTION ASSOCIATE 8 mg 8 mg, Intravenous, ONCE, Administer over 2-5 Minutes, On Wed07/12/12 at 1800, For 1 dose sodium chloride 0.9 % BOLUS 1,000 New Bag 07/12/2012 6:[address] 1,000 mLs mL/hr mL Intravenous, 1,000 mL, ONCE, On Wed07/12/12 at 1800, For 1 dose documented in this encounter Active and Recently Administered Medications Times are shown in PRODUCTION ASSOCIATE. Scheduled Medication Order 07/10/2012 07/11/2012 07/12/2012 ketorolac (TORADOL) injection 30 mg (COMPLETED) 184 (Given - Provider: Mirta Patterson, ESTHER) 30 mg, Intravenous, ONCE, Wed07/12/12 at 1845, For 1 dose ondansetron (ZOFRAN) injection 8 mg (COMPLETED) 1814 (Given - Provider: Mirta Patterson, ESTHER) 8 mg, Intravenous, ONCE, for 2 Minutes, e 07/12/12 at 1800, For 1 dose sodium chloride 0.9 % BOLUS 1,000 mL (COMPLETED) 181 (New Bag - Provider: Mirta Patterson, ESTHER)1915 (Stopped - Provider: Mirta Patterson, RN) Intravenous, 1,000 mL, ONCE, On Wed07/12/12 at 1800, For 1 dose PRN Medication Order 07/10/2012 07/11/2012 07/12/2012 HYDROmorphone (PF) (DILAUDID) injection 1 mg (CANCELED) 1815 (Given - Provider: Mirta Patterson, ESTHER) 1 mg, Intravenous, EVERY 1 HOUR PRN, Sta rting e 07/12/12 at 1752, Until Wed07/12/12 at 2146, moderate to severe pain documented in this encounter Care Teams Land Use Planner Relationship Specialty Start Date End Date [facility] PCP - General 07/12/12 11/14/20 CLOSED documented as of this encounter
--- OUTSIDE RECORDS SUMMARY | 2022-05-06 20:02 | XMS_ITS | Encounter Summary ---
:1970 Author Organization [facility] Address [address] [facility] [place] [address] Care Team Providers Name Role Phone [facility] Primary Care Provider Unav ailable Encounter Details Date Type Department Care Team Description 11/01/2020 Orders Only [facility] Sammy Damian for PeriOp Surge MD Zachery screening for other [id number] [facility] [place] [id number] [place] [phone] [address] [place] [address] Social History Tobacco Use Types Packs/Day Years [...] diseases documented in this encounter Care Teams Acute Care Registered Nurse Relationship Specialty Start Date End Date [facility] PCP - General 07/12/12 11/14/20 CLOSED documented as of this encounter
--- OUTSIDE RECORDS SUMMARY | 2022-05-06 20:02 | XMS_ITS | Encounter Summary ---
:1970 Author Organization [facility] Address [address] [place] [address]. [place] [address] Care Team Providers Name Role Phone [facility] Primary Care Provide r Encounter Details Date Type Department Care Team Description 02/14/2021 External Order [facility] Outside, Provide r Results Molecular Diagnostic s [address] [place] [address] Social History Tobacco Use Types Packs/Day Years Used Date Smoking Tobacco: Never Alcohol Use Standard Drinks/Week Comments No 0 (1 standard drink = 0.6 oz pure alcoho l) Sex Assigned at Date Recorded Not on file documented as of this encounter Plan of Treatment Not on filedocumented as of this encounter Procedures Procedure Name Priority Date/Time Associated Diagnosis Comme nts COVID-19 VIRUS Routine 02/14/2021 9:28 AM Results for this (CORONAVIRUS) BY CDT procedure a re in PCR (EXTERNAL the results RESULT) section. documented in this encounter Results COVID-19 Virus (Coronavirus) by PCR (External Result) (02/14/2021 9:28 AM CDT) P athologist Signature COVID-19 Virus NEGATIVE NEGATIVE COVID-19 by PCR EXTERNAL (External RESULTS Result) Specimen (Source) Anatomical Collection Method Collection Time Re ceived Time Location / / Volume Laterality 02/14/2021 9:28 AM CDT Johann DANG PFT - 02/17/2021 12:07 PM CDT Verified by Davy Neves on 02/17/2021. Performed By: [address] [address] Patient Reported LABORATORY Performing Organization Address City/State/ZIP Code Phon e Reji DANG PFT COVID-19 EXTERNAL COVID-19 [place] [address], [facility] RESULTS Result Scanned into Patient Record by [employer] Refer to Result Comment/Narrative for exact performing laboratory documented in this encounter Visit Diagnoses Not on filedocumented in this encounter Care Teams Firmware Developer Relationship Specialty Start Date End Date [facility] PCP - General 11/15/[address] [place] [id number] documented as of this encounter
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
--- OUTSIDE RECORDS SUMMARY | 2022-05-06 20:02 | XMS_ITS | Encounter Summary ---
:1970 Author Organization [facility] Address [address] [facility] [place] [address] Care Team Providers Name Role Phone Clinic, [facility] Primary Care Provide r Reason for Visit Auth/Cert Specialty Diagnoses / Procedures Referred By Contact Refer red To Contact Surgery Diagnoses Erectile dysfunction Erectile dysfunction [N52.9] Sh Periop Services Procedures ZZC INSERT SELF-CONTD PENILE PROSTHESIS ZZC INSERT MULTI-COMPON PENILE PROSTHE INSERTION, PENILE PROSTHESIS, INFLATABLE [address], [address] [place] [address] Phone: Referral ID Status Reason Start Date Expiration Date Visits Requ ested Visits Authorized [id number] 1 1 Encounter Details Date Type Department Care Team Description 02/18/2021 Anesthesia Event M [facility] Maico Rios MD [facility] [address] [place] [id number] [facility] Caitlin Mccauley [address], [address] [place] [address] Anesthesia Record Procedure Summary Procedure Name Responsible Anesthesia Start Anesthesia Stop Anesthesiologist Time Time INSERTION, PENILE Maico Rios MD 02/18/21 1005 1 1151 PROSTHESIS, INFLATABLE (Penis) Events Date Time Event Comment 02/18/2021 0847 1005 An Start 1006 An Start Data 1007 MD Present 1007 AN REASSESS I attest that I have identified and re-evaluated the patient imme diately before the induction of anesthesia and I am satisfied that the anesthetic plan is suitable for the patient's condition and procedure. The f irst vital signs recorded are pre- induction. Amy Martino [place] 1010 An Induction 1010 An LMA 1037 Antibiotic Complete 1038 AN INCISION 1139 MD Present 1147 LMA Removed 1148 an stop data 1151 An Stop Electronically s igned by Caitlin Roberts on February 18, 2021 11:51 A M Name Total dexamethasone 4mg/mL 4 mg fentaNYL (SUBLIMAZE) injection 100 mcg lidocaine 2% 100 mg midazolam 1mg/mL 2 mg ondansetron 2mg/mL 4 mg phenylephrine (ASHLEY-SYNEPHRINE) injection 300 mcg propofol (DIPRIVAN) injection 10 mg/mL vial 200 mg gentamicin (GARAMYCIN) infusion 80 mg 80 mg vancomycin 1500 mg in 0.9% NaCl 250 ml intermittent in fusion 1,500 mg 0 mg propofol infusion (mcg/kg/min) 945.68 mg LR 800 mL Agents Name NO HELIOX O2 N2O Air Exp Sevoflurane Exp Isoflurane Exp Desflurane Exp N2O O2 Delivery Device Ins Sevoflurane Ins Isoflurane Ins Desflurane O2 Auxiliary Blood No blood administrations on file. Lines, Drains, and Airways Type Details Placement Removal Incision/Surgical Site 02/18/21; 1119; 02/18/21 1119 by Abdomen; incision Helene Franz RN Peripheral IV 02/18/21; 0751; 20 G; 02/18/21 0751 by 02/18/21 1436 by Anterior, Left; Hand; Eileen Calderon, Juan José Dang RN Alcohol; None; Tolerated well Supraglottic Airway Placement Date: 02/18/21 1022 by 02/18/21 11 47 by 02/18/21; Placement Maico Rios Josten, Zoe K Time: 1022 (created MD via procedure documentation); Airway Type: Standard LMA; Mask Ventilation: 0; LMA Size: 5; Airway Brand: Ambu AuraGain; Attempts: 1 Closed/Suction Drain 02/18/21; 1119; 1; 02/18/21 1119 by 1 1559 by Anterior; Abdomen; Helene Franz RN Injuan manuel t, Nurse Accordion; 10 Turkmen Urethral Catheter 02/18/21; 1128; No; 16 02/18/21 1128 by 1130 by Helene Terrazas RN Quast, Mado nna J, RN documented in this encounter Social History Tobacco [...] / COVID-19? documented as of this encounter OR Notes Anesthesia Postprocedure Evaluation - Maico Rios MD - 02/18/2021 1:15 PM CDT Patient: Don Thomas Procedure(s): INSERTION, PENILE PROSTHESIS, INFLATABLE Diagnosis:Erectile dysfunction [N52.9] Diagnosis Additional Information: No value filed. Anesthesia Type: General Note: Disposition: Outpatient Postop Pain Control: Uneventful Sign Out: Well controlled pain PONV: No Neuro/Psych: Uneventful Sign Out: Acceptable/Baseline neuro status Airway/Respiratory: Uneventful Sign Out: Acceptable/Baseline resp. status CV/Hemodynamics: Uneventful Sign Out: Acceptable CV status Other NRE: NONE DID A NON-ROUTINE EVENT OCCUR? No Last vitals: Vitals Value Taken Time BP 113/68 02/18/21 1300 Temp 35.6 ??C (96 ??F) 02/18/21 1149 Pulse 79 02/18/21 1304 Resp 16 02/18/21 1300 SpO2 97 % 02/18/21 1305 Vitals shown include unvalidated device data. Electronically Signed By: Maico Rios MD February 18, 2021 1:15 PM Anesthesia Procedure Notes - Caitlin Roberts - 02/18/2021 10:21 AM CDTAssociated Order(s): Airway Airway Patient location during procedure: OR Staff - Anesthesiologist: Maico Rios MD [employer]ANCE: Caitlin Roberts Other Anesthesia Staff: Amy Rm Performed By: SRNA Consent for Airway Urgency: elective Indications and Patient Condition Indications for airway management: larissa-procedural Induction type:intravenous Mask difficulty assessment: 0 - not attempted Final Airway Details Final airway type: supraglottic airway Supraglottic Airway Details Type: LMA Brand: Ambu AuraGain LMA size: 5 Post intubation assessment Placement verified by: capnometry, equal breath sounds and chest rise Number of attempts at approach: 1 Secured with: pink tape Ease of procedure: easy Dentition: Intact and Unchanged Anesthesia Preprocedure Evaluation - Maico Rios MD - 02/18/2021 8:45 AM CDT Anesthesia Pre-Procedure Evaluation Patient: Don Thomas : 1970 Preoperative Diagnosis: Erectile dysfunction [N52.9] Procedure : Procedure(s): INSERTION, PENILE PROSTHESIS, INFLATABLE Past Medical History: Diagnosis Date ??? 2019 novel coronavirus disease (COVID-19) 11/2020 ??? Acoustic neuroma s/p excision ??? Asthma ??? PONV (postoperative nausea and vomiting) Past Surgical History: Procedure Laterality Date ??? BACK SURGERY Lumbar discectomy ??? CRANIECTOMY FOR EXCISION OF ACOUSTIC NEUROMA ??? ORTHOPEDIC SURGERY Left Shoulder Surgery Allergies Allergen Reactions ??? Chocolate Other reaction(s): hives ??? Cat Hair Extract Other reaction(s): Other (see comments) Eye swelling, sneezing. ??? [place] Hives Hives. Social History Tobacco Use ??? Smoking status: Former Smoker Types: Cigarettes ??? Smokeless tobacco: Never Used Substance Use Topics ??? Alcohol use: No Wt Readings from Last 1 Encounters: 02/18/21 93.4 kg (206 lb) Anesthesia Evaluation Pt has had prior anesthetic. Type: General. History of anesthetic complications - PONV. ROS/MED HX ENT/Pulmonary: (+) tobacco use, Past use, asthma (-) sleep apnea Neurologic: Comment: Acoustic neuroma, s/p resection Spinal stenosis Cardiovascular: METS/Exercise Tolerance: Hematologic: Musculoskeletal: GI/Hepatic: (-) GERD Renal/Genitourinary: Endo: Psychiatric/Substance Use: (+) psychiatric history anxiety and depression Infectious Disease: Malignancy: Other: Physical Exam Airway Mallampati: II TM distance: > 3 FB Neck ROM: full Mouth opening: > 3 cm Respiratory Devices and Support Dental no notable dental history Cardiovascular cardiovascular exam normal Pulmonary pulmonary exam normal OUTSIDE LABS: CBC: Lab Results Component Value Date WBC 13.7 (H) 11/15/2020 WBC 6.6 07/12/2012 HGB 14.7 11/15/2020 HGB 15.8 07/12/2012 HCT 41.7 11/15/2020 HCT 44.7 07/12/2012 PLT 285 11/15/2020 PLT 218 07/12/2012 BMP: Lab Results Component Value Date NA 136 11/15/2020 NA 136 07/12/2012 POTASSIUM 3.7 11/15/2020 POTASSIUM 3.9 07/12/2012 CHLORIDE 108 11/15/2020 CHLORIDE 105 07/12/2012 CO2 22 11/15/2020 CO2 24 07/12/2012 BUN 15 11/15/2020 BUN 12 07/12/2012 CR 0.92 11/15/2020 CR 1.06 07/12/2012 GLC 125 (H) 11/15/2020 GLC 90 07/12/2012 COAGS: No results found for: PTT, INR, FIBR POC: No results found for: BGM, HCG, HCGS HEPATIC: Lab Results Component Value Date ALBUMIN 4.1 07/12/2012 PROTTOTAL 7.2 07/12/2012 ALT 39 07/12/2012 AST 24 07/12/2012 ALKPHOS 93 07/12/2012 BILITOTAL 0.4 07/12/2012 OTHER: Lab Results Component Value Date RICCI 8.4 (L) 11/15/2020 Anesthesia Plan ASA Status: 2 NPO Status: NPO Appropriate Anesthesia Type: General. - Airway: LMA Induction: Intravenous. Maintenance: TIVA. Consents Postoperative Care Pain management: IV analgesics, Oral pain medications. PONV prophylaxis: Ondansetron (or other 5HT-3), Dexamethasone or Solumedrol Comments: H&P reviewed: Unable to attach H&P to encounter due to EHR limitations. H&P Update: appropriate H&P reviewed, patient examined. No interval changes since H&P (within 30 days). Maico Rios MD documented in this encounter Miscellaneous Notes Anesthesia Care Transfer Note - Caitlin Roberts - 02/18/2021 11:51 AM CDT Patient: Don Thomas Procedure(s): INSERTION, PENILE PROSTHESIS, INFLATABLE Diagnosis: Erectile dysfunction [N52.9] Diagnosis Additional Information: No value filed. Anesthesia Type: General Note: Oropharynx: oropharynx clear of all foreign objects and spontaneously breathing Level of Consciousness: awake Oxygen Supplementation: face mask Level of Supplemental Oxygen (L/min / FiO2): 6 Independent Airway: airway patency satisfactory and stable Dentition: dentition unchanged Vital Signs Stable: post-procedure vital signs reviewed and stable Report to RN Given: handoff report given Patient transferred to: PACU Comments: At end of procedure, spontaneous respirations, adequate tidal volumes, followed commands to voice, LMA removed atraumatically, oropharynx suctioned, airway patent after LMA removal. Oxygen via facemask at 6 liters per minute to PACU. Oxygen tubing connected to wall O2 in PACU, SpO2, NiBP, and EKG monitors and alarms on and functioning, Tracie Hugger warmer connected to patient gown, report onpatient's clinical status given to SPACE TECHNOLOGIST, RN questions answered. Handoff Report: Identifed the Patient, Identified the Reponsible Provider, Reviewed the pertinent medical history, Discussed the surgical course, Reviewed Intra-OP anesthesia mangement and issues during anesthesia, Set expectations for post-procedure period and Allowed opportunity for questions and acknowledgement of understanding Vitals: Vitals Value Taken Time BP Temp Pulse 75 02/18/21 1150 Resp 19 02/18/21 1150 SpO2 100 % 02/18/21 1150 Vitals shown include unvalidated device data. Electronically Signed By: Caitlin Roberts February 18, 2021 11:51 AM documented in this encounter Plan of Treatment Not on filedocumented as of this encounter Procedures Procedure Name Priority Date/Time Associated Comments Diagnosis ANE AIRWAY Routine 02/18/2021 10:21 Results for this SUPRAGLOTTIC AM CDT procedure are i n PERFORMABLE the results section. documented in this encounter Results ANE AIRWAY SUPRAGLOTTIC PERFORMABLE (02/18/2021 10:21 AM CDT) Narrative Caitlin Roberts - 02/18/2021 10:21 AM CDT Caitlin Roberts ? 02/18/2021 10:22 AM Airway ? Patient location during procedure : OR Staff - ? Anesthesiologist: ??Maico Rios MD ? [employer]: Caitlin Roberts ? Other Anesthesia Staff: Deyvi Rm ? Performed By: SRNA Consent for Airway ? Urgency: elective Indications and Patient Condition ? Indications for airway management : larissa-procedural ? Induction type:intravenous ? Mask difficulty assessment: 0 - n ot attempted Final Airway Details ? Final airway type: supraglottic a irway Supraglottic Airway Details ? Type: LMA ? Brand: Ambu AuraGain ? LMA size: 5 Post intubation assessment ? Placement verified by: capnometry , equal breath sounds and chest rise ? Number of attempts at approach: 1 ? Secured with: pink tape ? Ease of procedure: easy ? Dentition: Intact and Unchanged Maico Rios MD IN ANESTHESIA documented in this encounter Visit Diagnoses Not on filedocumented in this encounter Administered Medications Inactive Administered Medications - up to 3 most recent administrations Medication Order MAR Action Action Date Dose Rate Site dexamethasone (DECADRON) injection Given 02/18/2021 10:18 AM CDT 4 mg Intravenous, PRN, Administer over 1 Minutes, Starting on Wed02/18/21 at 1018, Anesthesia Intra-op fentaNYL (PF) (SUBLIMAZE) injection Given 02/18/2021 10:37 AM CDT 50 mcg Intravenous, PRN, Administer over 3-5 Minutes, Starting on Wed02/18/21 at 1010, Anesthesia Intra-op Given 02/18/2021 10:10 AM CDT 50 mcg gentamicin (GARAMYCIN) infusion 80 mg Given 02/18/2021 10:12 AM CDT 80 mg Routine, 80 mg, Intravenous, EVERY 12 HOURS, First dose on Wed02/18/21 at 0800, Indications: Perioperative Pharmacoprophylaxis, Pre-procedure lactated ringers infusion New Bag 02/18/2021 10:05 AM CDT Intravenous, CONTINUOUS PRN, Anesthesia Intra-op, Starting on Wed02/18/21 at 1005, Until Wed02/18/21 at 1151 lidocaine 2% injection (MDV) Given 02/18/2021 10:10 AM CDT 100 mg Other, PRN, Starting on Wed02/18/21 at 1010, Anesthesia Intra-op midazolam (VERSED) injection Given 02/18/2021 10:07 AM CDT 2 mg Intravenous, Administer over 2 Minutes, PRN, Starting on Wed02/18/21 at 1007, Anesthesia Intra-op ondansetron (ZOFRAN) injection Given 02/18/2021 11:24 AM CDT 4 mg Intravenous, PRN, Administer over 2-5 Minutes, Starting on Wed02/18/21 at 1124, Anesthesia Intra-op phenylephrine (ASHLEY-SYNEPHRINE) injection Bolus 02/18/2021 11:05 AM CDT 100 mcg Intravenous, CONTINUOUS PRN, Starting on Wed02/18/21 at 1041, Anesthesia Intra-op Bolus 02/18/2021 10:53 AM CDT 100 mcg New Bag 02/18/2021 10:41 AM CDT 100 mcg propofol (DIPRIVAN) infusion Rate/Dose 02/18/2021 125 mcg/kg/min 70.05 Intravenous, CONTINUOUS PRN, Change 10:50 AM CDT mL/hr Starting on Wed02/18/21 at 1010, Anesthesia Intra-op New Bag 02/18/2021 10:10 AM CDT 150 mcg/kg/min 84.06 mL/hr propofol (DIPRIVAN) injection 10 mg/mL v ial Given 02/18/2021 10:10 AM CDT 200 mg Intravenous, PRN, Starting on Wed02/18/21 at 1010, Anesthesia Intra-op documented in this encounter Care Teams Senior Ecologist Relationship Specialty Start Date End Date [facility], [facility] - General 11/15/[address] [place] [id number] documented as of this encounter
--- OUTSIDE RECORDS SUMMARY | 2022-05-06 20:02 | XMS_ITS | Encounter Summary ---
:1970 Author Organization [facility] Address [address] [place] [address]. [place] [address] Care Team Providers Name Role Phone Unavailable Primary Care Provider Unavailable Encounter Details Date Type Department Care Team Description 05/17/[address] [facility] Pop Nowak, Hospital Results MD EMERGENCY PHYSIC ANU GABRIEL [address] [place], [place] [phone] (Wo rk) Social History Tobacco Use Types Packs/Day Years Used Date Smoking Tobacco: Never Assessed Sex Assigned at Date Recorded Not on file documented as of this encounter Progress Notes David Nowak - 05/19/2010 4:00 PM WARD NURSE FINAL CHIEF COMPLAINT: Left finger injuries secondary to snowblower. HISTORY OF PRESENT ILLNESS: The patient Rosalva Thomas is a 40-year-old male who presents today withthe complaint of left second through fourth finger injuries secondary to putting his fingers into the chute of a snowblower while it was activated. He thought it was off, but was unable to see the handle because of his glasses. After sticking his hand in the machine he experienced pain which he rates as a 10/10. He reports injuries with significant bleeding to the left three fingers as above. He has increased pain with movement. He denies other injury, is unable to describe paresthesias secondary tothe pain and denies specific weakness. REVIEW OF SYSTEMS: All other systems reviewed and negative. PAST MEDICAL HISTORY: 1. Chronic neck pain secondary to a work injury. 2. Anxiety. ALLERGIES: No known drug allergies. MEDICATIONS: Celexa, amitriptyline, Robaxin, metered dose inhaler. SOCIAL HISTORY: The patient denies the use of tobacco, alcohol or illicit drugs. FAMILY HISTORY: Noncontributory. PHYSICAL EXAMINATION: GENERAL: The patient is moderately distressed and anxious secondary to pain and is tearful. VITAL SIGNS: Pulse 120, blood pressure 118/81, respiratory rate 22. The patient's O2 saturations are 95% on room air. HEENT: No evidence of trauma, nontender, no deformity, extraocular muscles intact and nonicteric, moist mucous membranes, no exudates, erythema or injection. CARDIOVASCULAR: Tachycardic, but regular rhythm. RESPIRATORY: Lungs clear to auscultation bilaterally. GASTROINTESTINAL: Abdomen soft, nontender, nondistended. MUSCULOSKELETAL: Right upper and bilateral lower extremities all within normal limits. EXTREMITIES:The patient has a mildly oblique distal left second/index finger amputation at approximately the distal third of the fingernail with the fingernail remaining intact. There is no visible bone, and he has full range of motion and sensation throughout the index finger. The left third/middle finger has a large and nearly circumferential laceration approximately 3.5 cm in length just at the palmar surfaceof the distal interphalangeal joint with what appears to be tendon visible. The tendon does not appear obviously lacerated, but there is a significant 1.5-2 cm horizontal laceration above this. The distal tip of the left third finger is also amputated with visible and palpable bone and a significant avulsion. Fingernail appears primarily intact. The third finger is tender to palpation at the digital aspect, and there is no evidence of arterial bleeding. The skin of the third finger was initially significantly darker than the rest of the fingers, but upon palpation the finger significantly pinked up. Left fourth/ring finger is erythematous and swollen at the distal tip. It is soft, but tender to palpation. The fingernail is slightly lifted already, and there is a small amount of blood from this with no obvious laceration. Left fourth finger has full range of motion and sensation. Left thumb and fifth finger appear intact with full range of motion. He otherwise has full range of motion of all digits except for the left third finger secondary to pain and lacerations. NEUROLOGIC: Difficult to fully appreciate sensation over the injured fingers secondary to severe lacerations, avulsions and partial amputations. LABORATORY AND DIAGNOSTIC STUDIES: 1. Left second/index finger shows an oblique partially avulsed bone over the distal aspect of the distal phalanx. 2. Left third/middle finger shows a severely comminuted distal phalanx fracture. 3. Left fourth/ring finger shows what appears to be a fracture of the distal aspect of the very distal phalanx, but with no displacement or comminution. MEDICAL DECISION MAKING: The patient has a severely injured left third finger with an obviously open fracture and fractures of the left second and fourth finger with a raised fourth fingernail. I did discuss the case with Dr. Martinez who is quality control analyst for Orthopedics. He felt that the patient did not require emergent surgery, but that we should loosely close the lacerations of the left third finger as thoroughly as possible, primarily the proximal wound over the distal interphalangeal joint, place him in a large nonadherent bulky dressing with fingers splinted in extension. This was done; see procedure notes below. I did have a discussion with the patient and told him that he may end up having a distal amputation of his third finger, including possibly the entire distal phalanx. He may also require debridement of the second finger and possibly the fourth fingers and may require partial amputations there. I told him that it is not known at this time how much function he may recover, and he is awareof this. 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 PROCEDURE NOTE #1: Left second/index finger digital nerve block. A time-out was performed and the injury site identified. Alcohol was copiously swabbed throughout the base of the second finger, and 1 cc of 0.5% bupivacaine was injected from the dorsal aspect over the medial and lateral aspects with good anesthetic result. The patient tolerated the procedure well, and there were no complications. PROCEDURE NOTE #2: Left third/middle finger digital nerve block. A time-out was performed and the injury site identified. Alcohol was copiously swabbed throughout the base of the third finger, and 1 cc of 0.5% bupivacaine was injected from the dorsal aspect over the medial and lateral aspects with good anesthetic result. The patient tolerated the procedure well, and there were no complications. PROCEDURE NOTE #3: Left fourth/ring finger digital nerve block. A time-out was performed and the injury site identified. Alcohol was copiously swabbed throughout the base of the fourth finger, and 1 cc of 0.5% bupivacaine was injected from the dorsal aspect over the medial and lateral aspects with good anesthetic result. The patient tolerated the procedure well, and there were no complications. PROCEDURE NOTE #4: Open fracture-laceration repair of left third/middle finger. Again a time-out was performed, and the injury site was identified. Five sutures were placed in the 3.5 cm proximal laceration over the distal interphalangeal joint of the third finger in a simple interrupted fashion. We performed a mild amount of debridement of skin flaps over the ulnar aspect. The patient tolerated theprocedure well, and there were no complications. PROCEDURE NOTE #5: Repair of distal phalanx laceration of left third/middle finger. Again a time-out was performed, and the injury site was identified. Two sutures were placed in simple interrupted fashion over the medial aspect of the distal phalanx of the third finger in the 2 cm horizontal laceration at that location. The patient tolerated the procedure well, and there were no complications. The patient's second, third and fourth fingers were placed in a nonadherent bulky dressing with all threefingers held in extension. PLAN: The patient was discharged home with a prescription for Percocet. He was given 1 dose of Ancef here and was given a 10-day course of Keflex. He will follow up with Orthopedics on Wednesday. I did state tell him that he should call first thing Wednesday morning for an appointment. DIAGNOSES: 1. Fingertip amputation. 2. Finger lacerations. 3. Open finger fractures. Electronically signed on 05/19/2010 15:35 by DAVID NOWAK MD MT: [id number] Name: ROSALVA THOMAS MRN: [id number] Account: [id number] : 1970 Visit Date: 05/17/2010 Document: [id number] cc: Gordon Martinez MD NURSE documented in this encounter Plan of Treatment Not on filedocumented as of this encounter Visit Diagnoses Not on filedocumented in this encounter
--- OUTSIDE RECORDS SUMMARY | 2022-05-06 20:03 | XMS_ITS | Encounter Summary ---
:1970 Author Organization [facility] Address [address] [place] [address]. [place] [address] Care Team Providers Name Role Phone Clinic, [facility] Primary Care Provider Unav ailable Clinic, [facility] Primary Care Provide r Encounter Details Date Type Department Care Team Description 05/20/2002 [facility] Tommy Barakat MD [place] [address] [address] [facility] [address] [place] [address] [place] [address] [phone] (Wo rk) Social History Tobacco Use Types Packs/Day Years Used Date Smoking Tobacco: Former Cigarettes Smokeless Tobacco: Never Alcohol Use Standard Drinks/Week Comments No 0 (1 standard drink = 0.6 oz pure alcoho l) Sex Assigned at Date Recorded Not on file documented as of this encounter Progress Notes 05/20/2002 11:59 PM SOLE ROUGHER Addended by: MARY RICHMOND on: 05/29/2002,2:55 PM Modules accepted: Progress Notes Addended by: GAYLE VALERA on: 05/26/2002,1:33 PM Modules accepted: Progress Notes 00:00 History And Physical-[facility] TOMMY CHAVEZ) [Entered: Leather Cleaner (HIM)] : 68 CHIEF COMP LAINT: Severe left-sided pleuritic chest pain, fevers, chills, and productive cough. HISTORY: This 32-year-old man began getting ill about two days ago when everyone in his household had vomiting and gastroenteritis. He had a similar illness with recurrent vomiting and marked weakness and dehydrati on, then last night and again today had shaking chills, a temp as high as 104, and a cough with some rachelle sputum production. He also has developed significant left-sided pleuritic chest pain. On eval uation here in the emergency room, he has a fairly large left-sided pneumonia, and he is being admitt ed to manage his pain and treat his pneumonia with antibiotics. PAST MEDICAL HISTORY: Notable for e xercise-induced asthma, otherwise fairly good health. ALLERGIES: He has an allergy to chocolate with a hive reaction. No known medication allergies. MEDICATIONS: His only medication is albuterol inh aler p.r.n. He his a light smoker. Seldom drinks alcohol. FAMILY HISTORY: Reviewed and quite nega tive. SOCIAL HISTORY: Shows that he is in a second marriage. One child by his prior marriage. Cur rent has two other kids. SYSTEM REVIEW: Negative for visual or hearing complaints. Respiratory review is notable for exercise-induced asthma, particularly with cold air. The gastrointestinal, ur inary, neurologic, and joint reviews are all negative, except for occasional low back pain. PHYSICAL EXAM: T: 99.8 right now. He is still in a moderate amount of pain, particularly if he tries to br eath deeper if he coughs. The pain is in the left lateral/posterior chest. His color is good. Oxim etry is good on supplemental oxygen. LUNGS are clear anteriorly. He has a few rales heard in the le ft lung base posteriorly. HEART rhythm is regular with no appreciable murmur. Peripheral pulses are all strong in all locations. ABDOMEN is nontender with no masses. EXTREMITIES show no edema, good c olor. No peripheral cyanosis. No signs of a deep vein thrombosis. NEUROLOGIC exam normal. LAB STUD IES: Chest x-ray shows an extensive left-side infiltrate. Lab studies are pending. Sodium was a li ttle low at 123 however. IMPRESSION: 1) Left-sided pneumonia with left-sided pleurisy. This is pro bably a community-acquired pneumococcal pneumonia. However with his history of vomiting, there is so me chance that a component of this is aspiration. 2) Recurrent vomiting with mild secondary hyponatr emia and dehydration. PLAN: We will treat with IV Rocephin plus oral Zithromax and IV fluids plus a nalgesics for his pleurisy. If his pneumonia is slow to respond or if her remains febrile for more t taylor 24 hours, we may want to adjust antibiotics to improve the anaerobic coverage. [id number] _ TOMMY CHAVEZ MD MT: Document: [id number] [place], [place] Name: RICHARDVAHIDROSALVA HISTORY AND PHYSCIAL Page 2 of 2 LCN: MS3 DSC: [place], [place] Name: MR#: : Admit Date: RICHARDVAHIDROSALVA -84 1970 05/20/2002 Doctor: TOMMY CHAVEZ MD HISTORY AND PHYSICAL Page 1 of 2 Electronically filed by Gayle Washburn 05/26/2002 1:32 PM 11:19 Discharge Summary-[facility] TOMMY CHAVEZ () [Entered: 00:00 Leather Cleaner ([facility])] : PROVISIONAL DIAGNOSIS: Pneumonia. FINAL DISCHARGE DIAGNOSES: 1) Left lower lobe pneumonia wit h left-sided pleurisy. 2) Preceding gastroenteritis with vomiting and diarrhea, resolved. 3) Exer cise-induced asthma. PROCEDURES: None. COMPLICATIONS: None. SUMMARY: This 32-year-old man devel oped first a gastroenteritis-like illness with some nausea, vomiting, and diarrhea which was also neno ing his children ill at home. However, he then came to the emergency room with severe left-sided ple urisy, fevers, chills, and a cough, and his chest x-ray revealed the large left lower lobe pneumonia. He was admitted to the hospital for pain control and to treat his pneumonia. We felt his pneumonia was likely community-acquired, although there was quite a significant possibility that may have been aspiration related. Please see my admission history and physical for further details. His examinat ion was notable for loud rales in the left lung base posteriorly and a mild elevation of his temperat ure. His labs on admission showed a sodium of 127 which corrected to normal after rehydration. Hemo globin was 15.4. White count was 22,800. Blood cultures were negative. Sputum culture showed mixed dory. HOSPITAL COURSE: The patient rapidly became afebrile, but he had fairly severe pleurisy whi ch took a considerable amount of pain medication to relieve. At the time of discharge, his pleurisy is nearly resolved. He remains afebrile and has a mild cough with not much sputum production any fur ther. His examination still shows a few rales in the left lung base, however. DISCHARGE MEDICATIONS : 1) Augmentin 875 mg b.i.d. for 10 days. 2) Tylenol #3 two pills q.6.h. p.r.n. for pain. I will ask him to see his primary physician, Dr. Covington, in follow-up in about 10-14 days, and at that time repeat chest x-ray should be taken to confirm clearing. We felt his initial hyponatremia on admissi on was depletional in nature due to his vomiting, and that has corrected to normal. [id number] ALFR HENRIETTA CHAVEZ MD MT: Document: [id number] [place], [place] Name: ROSALVA THOMAS Please refer to the Nursing Discharge Information Sheet for more detailed information regarding diet, physical actvity limitations, medica tions and other pertinent instructions given to this patient upon discharge. DISCHARGE SUMMARY Page 2 of 2 LCN: MS3 DSC: 05/23/2002 [place], [place] Name: MR#: : A dmit Date: Discharge Date: ROSALVA THOMAS [id number] 1970 05/20/2002 05/23/2002 Doctor: TOMMY CHAVEZ MD Please refer to the Nursing Discharge Information Sheet for more detailed inf ormation regarding diet, physical activity limitations, medications and other pertinent instructions given to this patient upon discharge. DISCHARGE SUMMARY Page 1 of 2 Electronically filed by Yeison Richmond 05/29/2002 2:55 PM documented in this encounter Plan of Treatment Not on filedocumented as of this encounter Visit Diagnoses Not on filedocumented in this encounter Care Teams Forklift Technician Relationship Specialty Start Date End Date Clinic, [facility] PCP - General 07/12/12 11/14/20 [facility] PCP - General 11/15/[address] [place] [id number] documented as of this encounter
--- OUTSIDE RECORDS SUMMARY | 2022-05-06 20:03 | XMS_ITS | Encounter Summary ---
:1970 Author Organization [facility] Address [address] [place] [address]. [place] [address] Care Team Providers Name Role Phone Unavailable Primary Care Provider Unavailable Encounter Details Date Type Department Care Team Description 05/17/2010 [facility] Results MD EMERGENCY PHYSIC ANU GABRIEL [address] [place], [place] [phone] (Wo rk) Social History Tobacco Use Types Packs/Day Years Used Date Smoking Tobacco: Never Assessed Sex Assigned at Date Recorded Not on file documented as of this encounter Plan of Treatment Not on filedocumented as of this encounter Procedures Procedure Name Priority Date/Time Associated Diagnosis Comme nts XR FINGER LEFT G/E Routine 05/17/2010 6:13 PM Res ults for this 2 VIEWS LABEL CODER procedure are i n the results section. documented in this encounter Results X-ray lt finger 2-3 view (05/17/2010 6:13 PM LABEL CODER) Anatomical Region Laterality Modality Left Hand Left Other Specimen (Source) Anatomical Collection Method Collection Time Re ceived Time Location / / Volume Laterality 05/17/2010 6:13 PM LABEL CODER Impressions 05/18/2010 9:45 AM LABEL CODER LEFT FINGER(S) TWO TO THREE VIEWS May 6:13:00 PM HISTORY: Finger injury. Fingers into sno wblower chute. Evaluate for fractures. FINDINGS: Traumatic soft tissue and bony amputations of the distal linda of the second and third digits are present. There is a comminuted fracture of the distal third digit. There is also a nondisplaced fracture of the distal tuft of the fourth digit. David Nowak MD IMG DIAGNOSTIC IMAGING ORDER ROB documented in this encounter Visit Diagnoses Not on filedocumented in this encounter
--- OUTSIDE RECORDS SUMMARY | 2022-05-06 20:03 | XMS_ITS | Encounter Summary ---
:1970 Author Organization [facility] Address [address] [place] [address]. [place] [address] Care Team Providers Name Role Phone Unavailable Primary Care Provider Unavailable Encounter Details Date Type Department Care Team Description 09/25/2003 Emergency room Stacia Ross MD [facility] [address] [place], [place] [phone] (Wo rk) Social History Tobacco Use Types Packs/Day Years Used Date Smoking Tobacco: Never Assessed Sex Assigned at Date Recorded Not on file documented as of this encounter ED Notes Stacia Ross - 09/25/2003 12:00 AM MEDICAL CLAIMS MANAGER : 1970 CHIEF COMPLAINT: Facial weakness. HISTORY OF PRESENTING ILLNESS: This 33-year-old male presents to the emergency department with 24 hours of facial weakness. He states that he woke up on Wednesday morning with weakness to his face. He was not able to close his eye on the left side. He notes that in the preceding 24 hours he experienced a left-sided ear pain. He denies any recent cold symptoms but did note that approximately one month ago he had air travel. He did not appear to be troubled by any barotrauma from that activity. He is here now with weakness to his face. No change in taste. He denies any ear pain but does state that he has some muffling of his left ear. PAST MEDICAL HISTORY: Remarkable for asthma, never intubated. CURRENT MEDICATIONS: Metered-dose inhaler, type not known. HABITS: He does use tobacco. He denies recreational drugs or abuse over the counter medications. SOCIAL HISTORY: He is and unemployed. 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 He is currently not employed. REVIEW OF SYSTEMS: Other than noted above, all other systems are unremarkable. FAMILY HISTORY: Noncontributory. DOCUMENTED DRUG ALLERGIES: NONE. HE IS ALLERGIC TO CHOCOLATE, WHICH CAUSES HIVES. EXAM: This is a 33-year-old male who is alert and interactive with obvious drooping and lack of animation to the LEFT FACE. Blood pressure 134/78, respirations 16, heart rate 82, temperature 97.4, oxygen saturations 95%. NEUROLOGIC exam: Right hand dominant. Fluent speech. Cranial nerves are remarkable for palsy to left VII, which includes the frontal zygomatic and buccal mandibular branches. He has decreased sensation to the left cornea. Mandible has a full range of motion. No jaw deviation. Tongue protrudes symmetrically. Uvula is midline. Gag reflex is intact bilaterally. NECK is without deformity or discoloration. Carotid upstrokes are equal bilaterally with no fluid, thrills, or bruits. No cervical adenopathy. Sinuses are nontender. LEFT EAR is remarkable for significant retro-tympanic suffusion. No evidence of air fluid levels. No evidence of TYMPANIC MEMBRANE perforation or external otic debris. Mastoid ipsilateral left is nontender without erythema. CHEST is symmetric. CHEST WALL is nontender. LUNG lopez are clear to auscultation, resonant to percussion. CARDIOVASCULAR exam: No heaves or thrills. Regular rate and rhythm. Peripheral pulses are equal. Capillary refill is normal. ABDOMEN is full and soft. Bowel sounds are active. No involuntary guarding or masses. DERMATOLOGIC exam: Normal texture and turgor. Mucous membranes are moist. No evidence of icterus lesions. IMAGING STUDIES: Unenhanced head CT: Negative for space occupying lesions, ventricular anatomy is normal, no evidence of mass effect, bone windows normal, this report by radiology. CLINICAL COURSE AND MANAGEMENT IN THE EMERGENCY DEPARTMENT: The patient was advised of the extent and nature of the presenting disability. Questions were answered to his apparent satisfaction. The patient was discharged to home with recommendations for Artificial Tears on a p.r.n. basis to the left eye, and to place Lacri- Lube to the left eye at bedtime and Artificial Tears on a p.r.n. basis. He will be started on a Medrol Dosepak to start tonight. He should wear sunglasses outdoors. He is to avoid mir, windy exposures. He should follow up for reevaluation on by his primary physician. If his symptoms worsen, he is to report back to the emergency department. He was instructed that there is a risk of permanent paralysis, although the majority of these conditions fully resolve. [id number]_ STACIA ROSS MD MT: Document: [id number] [place], [place] Name: ROSALVA THOMAS EMERGENCY ROOM ENCOUNTER Page 2 of 2 LCN: ИРИНА DSC: 09/25/2003 [place], [place] Name: MR#: : Admit Date: ROSALVA THOMAS [id number] 1970 09/25/2003 Doctor: STACIA ROSS MD EMERGENCY ROOM ENCOUNTER Page 1 of 2 documented in this encounter Plan of Treatment Not on filedocumented as of this encounter Visit Diagnoses Not on filedocumented in this encounter
--- OUTSIDE RECORDS SUMMARY | 2022-05-06 20:03 | XMS_ITS ---
:1970 Author Care Team Providers Name Role Phone JACQUELINE HERNANDEZ MD Primary Care Provider [phone] SIRISHA MENARD OTHER [phone] Allergies Code Code System Name Reaction Severity Status Onset NKDA ? Medications Name Status Start Date Stop Date ? ? acetaminophen 500 mg tablet Active ? Not available albuterol sulfate 2.5 mg/3 mL (0.083 %) solution for nebulizatio n Active ? Not available inhale the contents of one vial via neb ulizer every four hours as needed for shortness of breath or wheezing. alprazolam 0.5 mg tablet Active ? Not riky ilable TAKE ONE TABLET BY MOUTH THREE TIMES DAILY as needed amoxicillin 875 mg-potassium clavulanate 125 mg tablet Active ? Not available take 1 tablet by mouth twice daily for 10 days azithromycin 250 mg tablet Completed ? 04/21 TAKE 2 TABLETS BY MOUTH ON DAY 1, THEN TAKE 1 TABLET ONCE DAILY ON DAYS 2 THROUGH 5 benzonatate 100 mg capsule Completed ? 03/17 TAKE 1 CAPSULE BY MOUTH THREE TIMES DAILY NEEDED Betasept Surgical Scrub 4 % topical liquid Completed ? 04/21/2021 USE TOPICALLY TO CLEANSE SKIN 2 TIMES D AILY BEGINNING 2 DAYS PRIOR TO PROCEDURE. celecoxib 100 mg capsule Completed ? 021 TAKE ONE CAPSULE BY MOUTH TWICE DAILY celecoxib 200 mg capsule Active ? Not riky ilable diazepam 2 mg tablet Active ? Not availab le TAKE 1 TABLET BY MOUTH 3 TIMES A DAY NEEDED hydromorphone 2 mg tablet Active ? Not av ailable TAKE 1 TABLET BY MOUTH EVERY 4 HOURS Flovent HFA 110 mcg/actuation aerosol inhaler Active ? Not available INHALE ONE PUFF BY MOUTH TWICE DAILY fluoxetine 10 mg capsule Completed ? 021 TAKE ONE CAPSULE BY MOUTH DAILY fluoxetine 20 mg capsule Active ? Not riky ilable fluoxetine 40 mg capsule Active ? Not riky ilable gabapentin 300 mg capsule Active ? Not av ailable hydrocodone 10 mg-acetaminophen 325 mg tablet Active ? Not available TAKE ONE TABLET BY MOUTH EVERY SIX HOURS hydromorphone 4 mg tablet Completed ? 2020 TAKE 1 TABLET BY MOUTH EVERY 4 HOURS hydroxyzine pamoate 25 mg capsule Active ? Not available TAKE 1 CAPSULE BY MOUTH EVERY 6 HOURS NEEDED ipratropium 0.5 mg-albuterol 3 mg (2.5 mg base)/3 mL nebulizatio n soln Active ? Not available INHALE THE CONTENTS OF 1 VIAL VIA NEBULIZER 4 TIMES A DAY levofloxacin 500 mg tablet Completed ? 04/21 Take 1 tablet by mouth daily methylprednisolone 4 mg tablet Active ? N ot available take 4 tablets by mouth daily for 3 day s, then 3 tablets for 3 days, 2 tablets for 3 days, 1 tablet for 3 days, 1/2 tablet for 3 days, then montelukast 10 mg tablet Active ? Not riky ilable naproxen 500 mg tablet Active ? Not avail able Take 1 tablet (500 mg total) by mouth 2 times a day as needed f or pain ondansetron 4 mg disintegrating tablet Completed ? 04/21/2021 ondansetron HCl 4 mg tablet Completed ? 09/03 TAKE ONE TABLET BY MOUTH EVERY SIX HOURS NEEDED oxycodone 5 mg tablet Active ? Not availa ble TAKE ONE TABLET BY MOUTH EVERY FOUR HOURS NEEDED FOR PAIN prednisone 10 mg tablet Active ? Not avai lable 4 tab daily x 2 days, 3 tab daily x 2da ys, 2 tab daily x 2days, 1 tab daily x 2days prednisone 20 mg tablet Active ? Not avai lable TAKE 3 TABLETS BY MOUTH DAILY FOR 4 DAY S THEN TAKE 2 TABLETS FOR 4 DAYS, THEN TAKE 1 TABLET FOR 4 DAYS, THEN TAKE 1/2 TABLET FOR 4 DAYS. sildenafil 100 mg tablet Active ? Not riky ilable take 1 tablet by mouth daily as needed for sexual activity sildenafil 50 mg tablet Completed ? 10/01/19 21 TAKE 1 TABLET BY MOUTH 1 HOUR PRIOR TO INTERCOURSE NEEDED Stool Softener-Stimulant Laxative 8.6 mg-50 mg tablet Completed ? 04/21/2021 sulfamethoxazole 800 mg-trimethoprim 160 mg tablet Completed ? 04/21/2021 Take 1 tablet every 12 hours by oral route as directed for 14 d ays. Symbicort 160 mcg-4.5 mcg/actuation HFA aerosol inhaler Active ? Not available tramadol 50 mg tablet Active ? Not availa ble TAKE ONE TABLET BY MOUTH EVERY SIX HOURS NEEDED trazodone 50 mg tablet Active ? Not avail able Ventolin HFA 90 mcg/actuation aerosol inhaler Active ? Not available INHALE 2 PUFFS BY MOUTH EVERY 4 HOURS NEEDED Problems None recorded. Procedures Date Name Performed by ? 02/18/2021 Inflatable Penile Prosthesis, Insertion of Information not available (Surg) 12/04/2019 Lumbar Bolster Pad Information not avai lable ? Colonoscopy Information not avai lable Notes: L 4 & 5 Results Lab Results Date Name Specimen Result Interpretation Description Value Range Status Address ? 10/11/2020 [facility] (Luteinizing ? No observation ? ? ? [place] Hormone), Serum recorded. Hospital: [facility] 10/11/2020 [facility] (Sex ? No observation ? ? ? Hormone-binding recorded. Globulin), Serum 10/11/2020 Testosterone, Total, ? No observation ? ? ? Serum recorded. 10/01/2020 [facility] (Luteinizing ? No observation ? ? ? [place] Hormone), Serum recorded. Hospital- Lab: 200 [facility] 10/01/2020 Testosterone, Total, ? No observation ? ? ? [place] Serum recorded. Hospita l- Lab: 200 [facility] 10/01/2020 [facility] (Sex ? No observation ? ? ? [facility] Lab Hormone-binding recorded. (Employee Health Globulin), Serum Clinic): [address] [facility] Past Encounters 04/21/2021 Primary Erectile Dysfunction; Reduced Li yancy Sammy Moffett MD: [address], [place] [address], Ph. 03/17/2021 Primary Erectile Dysfunction; Reduced Li yancy; Postoperative Pain Sammy Moffett MD: [address], [place] [address], Ph. 03/03/2021 Primary Erectile Dysfunction; Reduced Li yancy Sammy Moffett MD: [address], [place] [address], Ph. 02/20/2021 Removal of Drain Sammy Moffett MD: [address] [place] [address], Ph. Social History Tobacco Smoking Status Former Smoker (1/2 pack per day) Vaccine List None recorded. Plan of Care Patient Instructions Follow up with provider Reminders Provider Appointments None recorded. ? ? Lab None recorded. ? ? Referral None recorded. ? ? Procedures None recorded. ? ? Surgeries None recorded. ? ? Imaging None recorded. ? ? Vitals 04/21/2021 01:20PM ESTABLISHED 10 Height Weight BMI 5 ft 11 in 205 lbs 28.6 kg/m2 03/17/2021 01:00PM POST OP 10 Height Weight BMI 5 ft 11 in 205 lbs 28.6 kg/m2 03/03/2021 01:00PM POST OP 10 Height Weight BMI 5 ft 11 in 205 lbs 28.6 kg/m2 09/30/2020 10:40AM NEW PATIENT 20 Height Weight BMI 5 ft 11 in 210 lbs 29.3 kg/m2
--- OUTSIDE RECORDS SUMMARY | 2022-05-06 20:03 | XMS_ITS | Encounter Summary ---
:1970 Author Organization [place] Address [facility] [place] [address] Care Team Providers Name Role Phone Unavailable Primary Care Provider Unavailable Encounter Details Date Type Department Care Team Description 01/31/2010 Results Only [facility] Buddy Bolton, Hospital Results MD EMERGENCY PHYSIC ANU GABRIEL [address] [facility] [address] [place], [place] [id number] (Wo rk) Social History Tobacco Use Types Packs/Day Years Used Date Smoking Tobacco: Never Assessed Sex Assigned at Date Recorded Not on file documented as of this encounter Plan of Treatment Not on filedocumented as of this encounter Procedures Procedure Name Priority Date/Time Associated Diagnosis Comme nts CT THORACIC Routine 01/31/2010 10:48 PM Result s for this SPINE W/O CONTRAST CDT procedure are in the results section. CT CERVICAL Routine 01/31/2010 10:42 PM Result s for this SPINE W/O CONTRAST CDT procedure are in the results section. documented in this encounter Results CT SCAN DORSAL SPINE (01/31/2010 10:48 PM CDT) Anatomical Region Laterality Modality Other Specimen (Source) Anatomical Collection Method Collection Time Re ceived Time Location / / Volume Laterality 01/31/2010 10:48 PM CDT Impressions 02/01/2010 3:[address] THORACIC SPINE WITHOUT CONTRAST ??Jan 10:48:00 PM HISTORY: Neck injury with cervical and t horacic pain. No neurologic deficits on exam. TECHNIQUE: Axial images of the thoracic spine were obtained without intravenous contrast. Coronal and sagitt al reconstructions were performed. Images were reviewed in bone and soft tissue windows. FINDINGS: The alignment of the thoracic spine is normal. No definite acute fracture or subluxation is identif ied. No definite bony lesion is identified. The spinal canal and neural foramina ar e grossly patent. The visualized paraspinous tissues are unrem arkable. IMPRESSION: ?? 1. No definite abnormality of the thorac ic vertebra. 2. There is no significant foraminal or spinal canal narrowing at any level. Buddy Bolton MD [facility] CT SCAN CERV SPINE (01/31/2010 10:42 PM CDT) Anatomical Region Laterality Modality Other Specimen (Source) Anatomical Collection Method Collection Time Re ceived Time Location / / Volume Laterality 01/31/2010 10:42 PM CDT Impressions 01/31/2010 11:[address] CERVICAL SPINE WITHOUT CONTRAST ??Jan 10:42:00 PM HISTORY: Neck injury. Cervical and thora cic pain. No neurologic deficits on exam. TECHNIQUE: Thin-section axial images are obtained through the cervical spine. Coronal and sagittal reformatted images are also performed. No IV contrast is utilized for this exam. FINDINGS: There is no evidence of cervic al spine fracture or malalignment. Vertebral body heights and disc spaces are normal. ??No prevertebral soft tissue swelling. Surro unding soft tissue structures are unremarkable. Postoperative changes from previous left mastoidectomy are noted. IMPRESSION: 1. No evidence of cervical spine fractur e or malalignment. 2. Postoperative changes from left masto idectomy. Buddy Bolton MD [facility] documented in this encounter Visit Diagnoses Not on filedocumented in this encounter
--- OUTSIDE RECORDS SUMMARY | 2022-05-06 20:03 | XMS_ITS | Encounter Summary ---
:1970 Author Organization [place] Address [address] [place] [address]. [place] [address] Care Team Providers Name Role Phone Unavailable Primary Care Provider Unavailable Encounter Details Date Type Department Care Team Description 03/14/2010 Emergency room [facility] Pj Bolton, Hospital Results MD EMERGENCY PHYSIC ANU GABRIEL [address] [facility] [address] [place], [place] [phone] (Wo rk) Social History Tobacco Use Types Packs/Day Years Used Date Smoking Tobacco: Never Assessed Sex Assigned at Date Recorded Not on file documented as of this encounter Progress Notes Jered Bolton MD - 04/18/2010 12:39 AM CDT FINAL CHIEF COMPLAINT: Muscle pain. HISTORY OF PRESENT ILLNESS: Rosalva Thomas is a 25-year-old gentleman who presents to the Emergency Department complaining of neck pain and back pain. He was injured at work. I did see him previously when he was injured at work. He has had pain ever since, but today he apparently did some new type of physical therapy and was lifting some small weights turning his head back and forth and now he says he has pain in the back of his head and neck that is 8-9/10, constant. He says the Percocet really does not help his pain at all, so he has not been taking much, but he did take some ibuprofen. The patient has a lot of anxiety going on currently regarding his job scenario and work comp issues. He deniesany weakness, numbness or tingling in the arms or legs currently. ALLERGIES: Vicodin. MEDICATIONS: Ibuprofen, Percocet, Valium, Celexa, Robaxin, Advair, albuterol. PAST MEDICAL HISTORY: Anxiety. SOCIAL HISTORY: Nonsmoker. FAMILY HISTORY: Negative. REVIEW OF SYSTEMS: See HPI. All other systems are reviewed and are negative. PHYSICAL EXAMINATION: VITAL SIGNS: Blood pressure 138/79, pulse 88, respirations 16, temperature 99, oxygen saturation 96% on room air. GENERAL: This is a 39-year-old gentleman who is pleasant to talk to. He appears somewhat anxious here in the ED. HEENT: Eyes are normal. Ears, nose and throat are normal. CARDIOVASCULAR: Regular rate and rhythm. RESPIRATORY: Breath sounds are clear. GASTROINTESTINAL: Abdomen is soft and nontender. MUSCULOSKELETAL: Normal. He has good strength in all his extremities, good pulses in all 4 extremities. SKIN: Warm and dry. MUSCULOSKELETAL: Reveals good activity aide strength bilaterally. Examination of the neck reveals tense muscles in the cervical musculature and trapezius, no obvious midline pain with palpation, no rashes in the area of pain, no lower back tenderness. EMERGENCY DEPARTMENT COURSE: The patient had an IM shot of Dilaudid, Toradol and some oral Ativan. At one point he was hyperventilating here in the Emergency Department and got some carpopedal spasm. It took a little bit to get him calmed down and the patient has a significant anxiety component that is likely complicating his recovery from this injury; however, I I certainly understand being anxiousabout job issues and work comp issues and I understand that these issues can certainly weigh on a person and I had a long discussion with the patient regarding rehabilitation issues and healing issues.Essentially, I told the patient he is a young, healthy 39-year-old gentleman who appears to have good muscle tone and I think likely his body will heal given time. DIAGNOSIS: Cervical neck pain with muscle spasm. Electronically signed on 04/18/2010 00:39 by JERED BOLTON MD MT: [id number] Name: ROSALVA THOMAS Account: [id number] : 1970 Visit Date: 03/14/2010 Document: [id number] documented in this encounter Plan of Treatment Not on filedocumented as of this encounter Visit Diagnoses Not on filedocumented in this encounter
[2022-05-06 20:18] LABS: SARS PCR* Negative SARS-CoV-2 (Negative)
--- NOTE | 2022-05-06 20:33 | ED.GENADULT ---
HPI - General Adult General Time Seen by Provider: 20:35 Date Seen: 05/06/22 Chief complaint: Cough Stated complaint: Cold Symptoms Source: patient, family, RN notes reviewed and old records reviewed Mode of arrival: ambulatory Limitations: no limitations History of Present Illness HPI narrative: Don is a very pleasant 51-year-old male with a history of anxiety, chronic back pain, asthma who comes to the emergency room with significant other for evaluation regarding ongoing cough. Patient noted that he had a respiratory infection and tested negative for COVID a couple of weeks ago and was placed on prednisone which she finished 2 days ago after a 10 day course and initially a Z-Silvestre. He notes that as soon as the prednisone was done he started experiencing increasing cough. He notes some chest pain with this. His cough is productive of sputum. He notes that he is prone to pneumonia. He has a nebulizer at home which only gives some transient relief. He denies any vomiting or diarrhea but does note some ear pain. He has had fever low grade per his significant other. He does not smoke but he does have persistent asthma. He notes abdominal pain is present but only because he has been coughing. He denies diarrhea. Related Data Home Medications Medication Instructions Recorded Confirmed albuterol sulfate 90 mcg/actuation 1 puff inhalation PRN 04/07/22 04/26/22 aerosol inhaler diazepam 2 mg tablet 2 mg PO TID PRN 04/07/22 04/26/22 Previous Rx's Medication Instructions Recorded albuterol sulfate 2.5 mg/3 mL 2.5 mg (3 mL) inhalation Q4H PRN 03/10/22 (0.083 %) solution for nebulization shortness of breath or wheezing #75 mL budesonide-formoterol HFA 160 1 puff inhalation BID #10.2 grams 04/07/22 mcg-4.5 mcg/actuation aerosol inhaler celecoxib 200 mg capsule 200 mg PO BID #120 caps 04/07/22 fluoxetine 20 mg capsule 80 mg PO QDAY #360 caps 04/07/22 gabapentin 300 mg capsule 600 mg PO TID #180 caps 04/07/22 montelukast 10 mg tablet 10 mg PO .Bedtime #90 tabs 04/07/22 sildenafil 100 mg tablet 100 mg PO DAILY PRN sexual 04/07/22 activity #10 tabs trazodone 50 mg tablet 50 mg PO .Bedtime PRN insomnia #90 04/07/22 tabs ipratropium 0.5 mg-albuterol 3 mg 3 ml inhalation QID #180 mL 04/14/22 (2.5 mg base)/3 mL nebulization soln azithromycin 250 mg tablet See Rx Instructions PO .COMPLEX #6 04/26/22 tabs prednisone 20 mg tablet 20 mg PO BID #15 tabs 04/26/22 benzonatate 100 mg capsule 100 mg PO BID PRN cough #20 caps 05/06/22 doxycycline hyclate 100 mg capsule 100 mg PO BID 7 days #14 caps 05/06/22 methylprednisolone 4 mg tablets in See Rx Instructions PO .COMPLEX 05/06/22 a dose pack (Medrol (Silvestre)) #21 ea Allergies Allergy/AdvReac Type Severity Reaction Status Date / Time Chocolate Allergy Intermediate Hives Uncoded 04/26/22 11:28 Review of Systems Const: Reports: fever (Low-grade) Eyes: Denies: change in vision ENMT: Denies: throat pain or difficulty swallowing Cardio: Reports: chest pain (With coughing); Denies: palpitations, swelling of feet/ankles or shortness of breath with exertion Resp: Reports: cough and wheezing; Denies: shortness of breath GI: Reports: abdominal pain (With coughing); Denies: nausea, vomiting, diarrhea or difficulty swallowing : Denies: painful urination Psych: Reports: anxiety Allergy/Immuno: Reports: wheezing [facility] Medical History Asthma Surgical History History of discectomy History of shoulder surgery Family History Uncle Colorectal cancer Social History Narrative: Does not drink alcohol Does not use illicit drugs Former smoker Smoking Status: Never smoker Do you use any of these nicotine containing products: None Second hand tobacco smoke exposure: No How often do you have a drink containing alcohol: never How often do you have six or more drinks on one occasion: Never AUDIT-C Alcohol total score: 0 Non-prescribed substance use: denies use Exam Narrative: Exam Narrative: Don is awake and oriented. He is fatigued but nontoxic in appearance. Pupils are equal round. TMs bilaterally are with some retraction but no obvious erythema or bulging. Oral cavity with moist mucous membranes but no excessive saliva. Neck is supple without lymphadenopathy. Heart with a tachycardic rate but normal rhythm. Lungs are with decreased breath sounds in the bases bilaterally. Coughing is obvious that he has a lot of main airway congestion. It also greatly increases his discomfort. Abdomen soft. Lower extremities without edema. Const: Vital Signs, click to edit/add: Vital Signs - 24 hr 05/06/22 18:45 05/06/22 21:00 05/06/22 21:06 Temperature 97.9 F Pulse Rate [Right Pulse Oximeter] 102 H Respiratory Rate 24 Blood Pressure [Ri ght Upper Arm] 120/77 Pulse Oximetry 97 97 98 Oxygen Delivery Me thod Room Air 05/06/22 22:01 05/06/22 22:41 05/06/22 23:12 Temperature 97.9 F 97.9 F Pulse Rate [Right Pulse Oximeter] 87 87 Respiratory Rate 20 20 Blood Pressure [Ri ght Upper Arm] 126/82 126/82 Pulse Oximetry 97 Oxygen Delivery Me thod Room Air Documenting provider has reviewed patient's vital signs: yes Course Course Hospital Course: Did a initially offer patient IV and further workup but he is wanting chest x-ray only. However he then changes his mind and would like blood work. We will give him IV fluids check a CBC, comprehensive, CRP. First dose of antibiotic for bronchitis Rocephin 1 g IV. DuoNeb as well. Reevaluation(s) Reevaluation #1: Patient improved objectively with fluids. Also feels better after DuoNeb. Reassuring creatinine and patient is given Toradol 15 mg IV. Vital Signs Vital signs: Initial Vital Signs Temperature 97.9 F 05/06/22 18:45 Temperature Source Temporal Artery Scan 05/06/22 18:45 Pulse Rate 102 H 05/06/22 18:45 Respiratory Rate 24 05/06/22 18:45 Blood Pressure 120/77 05/06/22 18:45 Blood Pressure Mean 91 05/06/22 18:45 Blood Pressure Position Sitting 05/06/22 18:45 Pulse Oximetry 97 05/06/22 18:45 Oxygen Delivery Method 05/06/22 18:45 Vital Signs Temperature 97.9 F 05/06/22 18:45 Pulse Rate 102 H 05/06/22 18:45 Respiratory Rate 24 05/06/22 18:45 Blood Pressure 120/77 05/06/22 18:45 Pulse Oximetry 97 05/06/22 18:45 Oxygen Delivery Method 05/06/22 18:45 Temperature 97.9 F 05/06/22 23:12 Pulse Rate 87 05/06/22 22:41 Respiratory Rate 20 05/06/22 22:41 Blood Pressure 126/82 05/06/22 22:41 Pulse Oximetry 97 05/06/22 22:01 Oxygen Delivery Method 05/06/22 22:01 Medical Decision Making MDM Narrative Medical decision making narrative: 1. Bronchitis-chest x-ray clear but patient clearly has ongoing cough. History of asthma. Treated with Rocephin 1 g IV in the ED. Will be discharged home with doxycycline 100 mg p.o. b.i.d. x7 days. Would have him check with his primary to ensure resolution of symptoms. If he has ongoing pain cough may wish to extend doxycycline to 14 days. In addition I do think he would benefit from steroids. Medrol Dosepak tapering dose given. 2. Chest and abdominal pain -this appears to be muscular. D-dimer is reassuring. No evidence of sepsis. Toradol 15 mg IV. 3. Disposition-home with significant other. Tessalon Perles may be used for coughing. All sent to pharmacy. Return as needed for worsening symptoms. Medical Records Medical records reviewed: Yes I reviewed the patient's medical records Lab Data Lab results reviewed: Yes I reviewed the patient's lab results Labs: Lab Results 05/06/22 05/06/22 05/06/22 Range/Units 18:45 20:41 20:41 WBC 10.11 (4.50-11.00) K/uL RBC 4.82 (4.30-5.90) m/uL Hgb 15.5 (13.5-17.5) gm/dL Hct 45.7 (37.0-53.0) % MCV 95 (80-100) fL MCH 32 (26-34) pg MCHC 34 (32-36) gm/dL RDW Coeff of Teagan 11.6 (11.5-15.5) % Plt Count 225 (140-440) K/uL Neut % (Auto) 75.5 H (42.0-72.0) % Lymph % (Auto) 6.9 L (20-44) % Appling % (Auto) 13.6 H (0.0-11.0) % Eos % (Auto) 2.4 (0.0-7.0) % Baso % (Auto) 0.2 (0.0-3.0) % Neut # (Auto) 7.60 H (1.7-7.0) K/uL Lymph # (Auto) 0.70 L (0.90-2.90) K/uL Appling # (Auto) 1.40 H (0.00-0.90) K/UL Eos # (Auto) 0.24 (0.00-0.50) K/uL Baso # (Auto) 0.02 (0.00-0.30) K/uL Abs Immat Gran (auto) 0.14 (0.00-0.30) K/uL D-Dimer Quant (PE/DVT) 0.31 (0.00-0.50) ug/ml Sodium (135-149) mmol/L Potassium (3.6-5.1) mmol/L Chloride (96-114) mmol/L Carbon Dioxide (20-32) mmol/L BUN (7-30) mg/dL Creatinine (0.5-1.5) mg/dL Estimated Creat Clear Estimated GFR ml/min Glucose (60-115) mg/dL Calcium (8.4-10.6) mg/dL Total Bilirubin (0.1-1.5) mg/dL AST (12-35) U/L ALT (4-50) U/L Alkaline Phosphatase (40-150) U/L C-Reactive Protein (0.5-1.0) mg/dL Total Protein (6.0-8.3) g/dL Albumin (3.3-5.0) g/dL Urine Color (Yellow) Urine Appearance (Clear) Urine pH (5.0-8.5) Ur Specific [place] (1.000-1.030) Urine Protein (Negative) Urine Glucose (UA) (Negative) Urine Ketones (Negative) Urine Blood (Negative) Urine Nitrite (Negative) Urine Bilirubin (Negative) Urine Urobilinogen (0.2-1.0) Ur Leukocyte Esterase (Negative) SARS-CoV-2 (PCR) Negative SARS-CoV-2 (Negative) Influenza Type A (PCR) Negative PCR FLU A (Negative) Influenza Type B (PCR) Negative PCR FLU B (Negative) RSV (PCR) Negative PCR RSV (Negative) 05/06/22 05/06/22 Range/Units 20:41 20:57 WBC (4.50-11.00) K/uL RBC (4.30-5.90) m/uL Hgb (13.5-17.5) gm/dL Hct (37.0-53.0) % MCV (80-100) fL MCH (26-34) pg MCHC (32-36) gm/dL RDW Coeff of Teagan (11.5-15.5) % Plt Count (140-440) K/uL Neut % (Auto) (42.0-72.0) % Lymph % (Auto) (20-44) % Appling % (Auto) (0.0-11.0) % Eos % (Auto) (0.0-7.0) % Baso % (Auto) (0.0-3.0) % Neut # (Auto) (1.7-7.0) K/uL Lymph # (Auto) (0.90-2.90) K/uL Appling # (Auto) (0.00-0.90) K/UL Eos # (Auto) (0.00-0.50) K/uL Baso # (Auto) (0.00-0.30) K/uL Abs Immat Gran (auto) (0.00-0.30) K/uL D-Dimer Quant (PE/DVT) (0.00-0.50) ug/ml Sodium 134 L (135-149) mmol/L Potassium 3.9 (3.6-5.1) mmol/L Chloride 100 (96-114) mmol/L Carbon Dioxide 26 (20-32) mmol/L BUN 12 (7-30) mg/dL Creatinine 1.1 (0.5-1.5) mg/dL Estimated Creat Clear 83.67 Estimated GFR 81 ml/min Glucose 110 (60-115) mg/dL Calcium 9.0 (8.4-10.6) mg/dL Total Bilirubin 0.4 (0.1-1.5) mg/dL AST 24 (12-35) U/L ALT 28 (4-50) U/L Alkaline Phosphatase 114 (40-150) U/L C-Reactive Protein 3.1 H (0.5-1.0) mg/dL Total Protein 6.9 (6.0-8.3) g/dL Albumin 4.3 (3.3-5.0) g/dL Urine Color Yellow (Yellow) Urine Appearance Clear (Clear) Urine pH 7.0 (5.0-8.5) Ur Specific [place] 1.020 (1.000-1.030) Urine Protein Negative (Negative) Urine Glucose (UA) Negative (Negative) Urine Ketones Negative (Negative) Urine Blood Negative (Negative) Urine Nitrite Negative (Negative) Urine Bilirubin Negative (Negative) Urine Urobilinogen 0.2 (0.2-1.0) Ur Leukocyte Esterase Negative (Negative) SARS-CoV-2 (PCR) (Negative) Influenza Type A (PCR) (Negative) Influenza Type B (PCR) (Negative) RSV (PCR) (Negative) Imaging Data Chest x-ray: Attestation: I have reviewed the pertinent imaging results. My impression: No obvious infiltrate Radiologist's impression: No acute findings ECG Data Attestation: I personally reviewed and interpreted this ECG as follows: Interpretation: EKG by my read shows sinus at a rate of 95 I do not note any acute ST or T-wave changes at this time. Discharge Plan Discharge Clinical Impression: Bronchitis Patient Disposition: Home, Self-Care Condition: Improved Additional Instructions: Recommend initiation of doxycycline 100 mg p.o. b.i.d. times 10 days. Will also start Medrol Dosepak tapering. Please follow-up with your primary MD or clinic in the next 7 days for recheck. Push fluids as much as possible. Return to the emergency room as needed. Prescriptions: New benzonatate 100 mg capsule 100 mg PO BID PRN (Reason: cough) Qty: 20 0RF methylprednisolone [Medrol (Silvestre)] 4 mg tablets,dose pack See Rx Instructions .ROUTE .COMPLEX Qty: 21 0RF Rx Instructions: orally per package directions doxycycline hyclate 100 mg capsule 100 mg PO BID 7 Days Qty: 14 0RF No Action diazepam 2 mg tablet 2 mg PO TID PRN albuterol sulfate 90 mcg/actuation HFA aerosol inhaler 1 puff inhalation PRN budesonide-formoterol 160-4.5 mcg/actuation HFA aerosol inhaler 1 puff inhalation BID Qty: 10.2 11RF celecoxib 200 mg capsule 200 mg PO BID Qty: 120 3RF fluoxetine 20 mg capsule 80 mg PO QDAY Qty: 360 3RF gabapentin 300 mg capsule 600 mg PO TID Qty: 180 3RF montelukast 10 mg tablet 10 mg PO .Bedtime Qty: 90 3RF sildenafil 100 mg tablet 100 mg PO DAILY PRN (Reason: sexual activity) Qty: 10 6RF trazodone 50 mg tablet 50 mg PO .Bedtime PRN (Reason: insomnia) Qty: 90 3RF prednisone 20 mg tablet 20 mg PO BID Qty: 15 0RF azithromycin 250 mg tablet See Rx Instructions PO .COMPLEX Qty: 6 0RF Rx Instructions: For 250 mg dose pack: take 500 mg today (day 1), then 250 mg for 4 days (days 2-5) PO albuterol sulfate 2.5 mg /3 mL (0.083 %) solution for nebulization 2.5 mg inhalation Q4H PRN (Reason: shortness of breath or wheezing) Qty: 75 0RF ipratropium-albuterol 0.5 mg-3 mg(2.5 mg base)/3 mL solution for nebulization 3 ml inhalation QID Qty: 180 5RF Follow Up/Referrals: Adriane Linares MD [Primary Care Provider] - Stand Alone Forms: GENELINK Info Instructions
[2022-05-06] MEDS: 0.9 % SODIUM CHLORIDE 1000 ml 1,000 ML IV (20:45)
[2022-05-06] MEDS: IPRAT-ALBUT 0.5-2.5 MG/3 ML NEB 1 NEB IH (20:45)
[2022-05-06 21:00] VITALS: O2SAT 97
[2022-05-06 21:06] VITALS: O2SAT 98
[2022-05-06 21:11] LABS: Basophils Absolute Auto 0.02 K/uL (0.00-0.30); Basophils Percent Auto 0.2 % (0.0-3.0); Eosinophils Absolute Auto 0.24 K/uL (0.00-0.50); Eosinophils Percent Auto 2.4 % (0.0-7.0); Hematocrit 45.7 % (37.0-53.0); Hemoglobin* 15.5 gm/dL (13.5-17.5); Immature Granulocytes Abs Auto 0.14 K/uL (0.00-0.30); Lymphocytes Percent Auto 6.9 % (20-44); Mean Corpuscular HGB Conc 34 gm/dL (32-36); Mean Corpuscular Hemoglobin 32 pg (26-34); Mean Corpuscular Volume 95 fL (80-100); Monocytes Percent Auto 13.6 % (0.0-11.0); Neutrophils Percent Auto 75.5 % (42.0-72.0); Platelet Count* 225 K/uL (140-440); RDW Coefficient of Variation % 11.6 % (11.5-15.5); Red Blood Count 4.82 m/uL (4.30-5.90); White Blood Count* 10.11 K/uL (4.50-11.00)
[2022-05-06 21:14] LABS: Appearance Urine Clear (Clear); Bilirubin Urine Negative (Negative); Blood Urine Negative (Negative); Color Urine Yellow (Yellow); Glucose Urine Negative (Negative); Ketones Urine Negative (Negative); Leukocyte Esterase Urine Negative (Negative); Nitrite Urine Negative (Negative); Protein Urine Negative (Negative); Urobilinogen Urine 0.2 (0.2-1.0)
[2022-05-06 21:24] LABS: Albumin* 4.3 g/dL (3.3-5.0); Chloride* 100 mmol/L (96-114)
[2022-05-06 21:25] LABS: Potassium* 3.9 mmol/L (3.6-5.1); Sodium* 134 mmol/L (135-149)
[2022-05-06 21:27] LABS: Creatinine* 1.1 mg/dL (0.5-1.5); Est. Creatinine Clearance* 83.67; Estimated Glomerular Filt Rate 81 ml/min
[2022-05-06 21:28] LABS: Alanine Aminotransferase* 28 U/L (4-50); Alkaline Phosphatase* 114 U/L (40-150); Aspartate Amino Transferase* 24 U/L (12-35); Bilirubin Total* 0.4 mg/dL (0.1-1.5); Blood Urea Nitrogen* 12 mg/dL (7-30); Carbon Dioxide* 26 mmol/L (20-32); Glucose* 110 mg/dL (60-115); Total Protein* 6.9 g/dL (6.0-8.3)
[2022-05-06 21:29] LABS: D Dimer Quantitative* 0.31 ug/ml (0.00-0.50)
[2022-05-06 21:30] LABS: C Reactive Protein* 3.1 mg/dL (0.5-1.0)
[2022-05-06] MEDS: cefTRIAXone 1 GM in 0.9 % SODIUM CHLORIDE Mini-bag 100 ML IVPB (21:40)
[2022-05-06 21:53] LABS: Slide Review Reflex No
[2022-05-06 22:01] VITALS: BP 126/82; PULSE 87; RESP 20; O2SAT 97
[2022-05-06] MEDS: KETOROLAC 15 MG/ML inj IVP (22:23)
[2022-05-06 22:41] VITALS: BP 126/82; PULSE 87; RESP 20; TEMP 36.6
[2022-05-06 23:12] VITALS: TEMP 36.6
== END 2022-05-06 22:42 | disposition home or self-care (01) ==
PROVIDERS: Emergency Provider Family Medicine; PCP Emergency Medicine
DX: J40 Bronchitis, not specified as acute or chronic (principal); Z79.51 Long term (current) use of inhaled steroids; Z80.0 Family history of malignant neoplasm of digestive organs; Z20.822 Contact with and (suspected) exposure to COVID-19
CPT/HCPCS: 36415; 71046; 80053; 81003; 85025; 85379; 86140; 87040; 87502; 87634; 87635; 93005; 94761; 96374; 96375; 99284; J0696; J1885

== ENCOUNTER 2023-06-01 17:55 | Outpatient (CLI) | payer BC, SELFPAY | END 2023-06-01 17:56 | disposition home or self-care (01) | LOC: NFLDREF 06-02 07:29 | PROVIDERS: PCP Emergency Medicine; Referring Provider Emergency Medicine; Visit Provider Emergency Medicine | DX: Z00.00 Encounter for general adult medical examination without abnormal findings (principal); F32.A Depression, unspecified; G47.00 Insomnia, unspecified; N52.9 Male erectile dysfunction, unspecified; R11.0 Nausea; Z13.1 Encounter for screening for diabetes mellitus | CPT/HCPCS: 80048; 80061; 84153 ==

== ENCOUNTER 2024-06-05 08:28 | Outpatient (CLI) | payer OTHER, SELFPAY ==
--- OUTSIDE RECORDS SUMMARY | 2024-06-05 08:31 | XMS_ITS | Encounter Summary ---
Author Organization [facility] Address [address] [place] [address] Care Team Providers Care Byproducts Extractor Name Role Phone [facility] Primary Care Provider Ronal Bashir MD Primary Care Provider + Encounter Details Date Type Department Care Team (Late st Contact Info) Description 02/14/2021 External Order Results [facility] [address] [place] [address] Outside, Provider Social History Tobacco Use Types Packs/Day Years Used Date Smoking Tobacco: Never Alcohol Use Standard Drinks/Week Comments No 0 (1 standard drink = 0.6 oz pur e alcohol) Sex and Gender Information Value Date Recorded Sex Assigned at Not on file Legal Sex Male 3:27 AM [employer] Gender Identity Not on file Sexual Orientation Not on file documented as of this encounter Plan of Treatment Not on file documented as of this encounter Procedures Procedure Name Priority Date/Time Associated Diagnosis Comments COVID-19 VIRUS (CORONAVIRUS) BY PCR (EXTERNAL RESULT) Routine 02/14/2021 9:28 AM CDT documented in this encounter Results * COVID-19 Virus (Coronavirus) by PCR (External Result) (02/14/2021 9:28 AM CDT) COVID-19 Virus by PCR (External Result) NEGATIVE NEGATIVE COVID-19 EXTERNAL RESULTS 02/14/2021 9:28 AM CDT Narrative [facility] - 02/17/2021 12:07 PM CDT Verified by Davy Neves on 02/17/2021. Performed By: [address] [id number] [place] Patient Reported LABORATORY Edited Result - Final [facility] COVID-19 EXTERNAL RESULTS COVID-19 External Result Scanned into Patient Record by [employer] Refer to Result Comment/Narrative for exact performing laboratory [address] documented in this encounter Visit Diagnoses Not on filedocumented in this encounter Additional Health Concerns Infection Onset Date Last Indicated Resolved Time Rule Out COVID-19 11/16/2022 11/16/2022 11/16/2022 11:58 AM CDT documented as of this encounter Care Teams Byproducts Extractor Relationship Specialty Start Date End Date Clinic, [address] [address] PCP - General 11/15/20 11/15/22 Ronal Bashir MD [address] [place] [address] PCP - General Internal Medicine 11/16/22 documented as of this encounter
--- OUTSIDE RECORDS SUMMARY | 2024-06-05 08:31 | XMS_ITS | Encounter Summary ---
Author Organization [facility] Address [address] [place] [address] Care Team Providers Care Final Cleaner Name Role Phone Elsewhere, Pcp Primary Care Provider Unavailabl e Reason for Referral * Outpatient (Routine) - Closed Specialty Diagnoses / Procedures Referred By Contac t Referred To Contact Spine Diagnoses Ruptured Lumbar Disc Ronal Bashir M.D. Phone: tel: fax: [facility] Referral ID Status Reason Start Date Expiration Date Visits Re quested Visits Authorized [id number] Closed 03/21/2018 03/21/2019 1 1 Encounter Details Date Type Department Care Team (Late st Contact Info) Description 03/21/2018 [facility] [address] [place] [address] Ronal Bashir M.D. [address] [place] [id number] Ruptured Lumbar Disc (Primary Dx) Social History Tobacco Use Types Packs/Day Years Used Date Smoking Tobacco: Never Assessed Sex and Gender Information Value Date Recorded Sex Assigned at Male 04/25/2018 8:15 AM CDT Legal Sex Male 12:23 PM [employer] Gender Identity Male 04/25/2018 8:15 AM CDT Sexual Orientation Straight 04/25/2018 8: 15 AM CDT documented as of this encounter Plan of Treatment Scheduled Procedures Name Priority Associated Diagnoses Date/Ti me DECOMPRESSION SPINE - POSTERIOR LUMBAR Radiculopathy Scheduled Referrals Name Type Priority Associated Diagnoses Order Schedule Neurosurgery Referral Outpatient Referral Routine Ruptured Lumbar Disc Expected: 03/21/2018 (Approximate), Expires: 03/21/2021 documented as of this encounter Visit Diagnoses Diagnosis Ruptured Lumbar Disc- Primary documented in this encounter Additional Health Concerns Infection Onset Date Last Indicated Resolved Time COVID19 Pending 12/19/2019 12/19/2019 12/20/2019 1 1:40 AM CDT COVID19 Pending 12/07/2020 12/07/2020 12/27/2020 4 :45 AM CDT documented as of this encounter Care Teams Final Cleaner Relationship Specialty Start Date End Date Elsewhere, Pcp PCP - General Family Medicine 12/07/20 documented as of this encounter
--- OUTSIDE RECORDS SUMMARY | 2024-06-05 08:31 | XMS_ITS | Clinical Summary ---
Author Organization [facility] Address [address] [place] [address] Care Team Providers Care Blower Installer Name Role Phone Elsewhere, Pcp Primary Care Provider Unavailabl e Source Comments Patient records contain information from all sites at [facility]. For routine questions regarding patient records, call [phone] during business hours, M-F 8:00 AM - 5:00 PM Central Time. Record requests for emergency care only can be directed to [phone] at any time.[facility] Allergies Active Allergy Reactions Criticality Noted Date Comments Cat Dander Other (see comments) 07/02/2009 Eye swelling, sneezing. [place] Hives (Reselect Reaction) 07/02/2009 Hives. Theobroma Oil Hives (Reselect Reaction) 12/28/2012 Medications albuterol (PROVENTIL HFA,VENTOLIN HFA) 90 mcg/actuation inhaler Inhale 1 puff 2 (two) times a day as needed for wheezing or shortness of breath (With activity). 07/02/20 09 Active gabapentin (NEURONTIN) 300 mg capsule Take 2 capsules (600 mg total) by mouth 3 (three) times a day. 360 capsule 5 01/18/20 19 Active traZODone (DESYREL) 50 mg tablet Take 1 tablet (50 mg total) by mouth at bedtime. May repeat x1 as needed 60 tablet 3 01/18/20 19 Active FLUoxetine (PROzac) 20 mg capsule Take 1 capsule by mouth every morning. 09/05/19 20 Active Flovent HFA 110 mcg/actuation inhaler Inhale 2 puffs every morning. 09/05/19 20 Active sildenafiL (VIAGRA) 100 mg tablet Take 100 mg by mouth daily as needed for erectile dysfunction. Active sennosides-docusat e sodium (SENOKOT-S) 8.6-50 mg per tablet Take 1 tablet by mouth 2 (two) times a day. 90 tablet 1 12/21/19 20 Active Additional Information Patient not taking.Reported on 12/23/2023 ondansetron ODT (ZOFRAN-ODT) 4 mg disintegrating tablet Take 1 tablet (4 mg total) by mouth every 8 (eight) hours as needed for nausea or vomiting. 20 tablet 03/13/20 20 Active celecoxib (CeleBREX) 200 mg capsule Take 200 mg by mouth 2 (two) times a day. Active acetaminophen (TYLENOL) 500 mg tablet Take 2 tablets (1,000 mg total) by mouth every 6 (six) hours as needed for pain (Do not exceed 4000 mg per day from all sources.). 360 tablet 3 06/11/20 21 Active cyclobenzaprine (FlexeriL) 10 mg tabletIndications: Strain Back Muscle Initial,Pain Sacroiliac Take 1 tablet (10 mg total) by mouth at bedtime as needed for muscle spasms. 21 tablet 12/23/19 24 Active Active Problems Problem Noted Date Diagnosed Date Preoperative Exam 09/12/2019 Overview (09/12/2019): Added automatically from request for surgery [id number] Stenosis Spinal 09/12/2019 Overview (09/12/2019): Added automatically from request for surgery [id number] Radiculopathy 04/26/2018 Anxiety 04/25/2018 Asthma Mild Persistent 04/08/2018 Overview (04/08/2018): Overview: Advair and albuterol Other Specified Postprocedural States 04/08/2018 Overview (04/08/2018): Overview: Deaf in left ear Unsteadiness Gait Disorder Non Orthopedic 2009 Asthma NOS 07/02/2009 Loss Hearing Sensorineural Unilateral 07/02/2009 Resolved Problems Problem Noted Date Diagnosed Date Resolved Date Ruptured Lumbar Disc 04/14/2018 018 Overview (04/14/2018): Added automatically from request for surgery [id number] Family History Medical History Relation Name Comments Malig Hyperthermia Neg Hx Social History Tobacco Use Types Packs/Day Years Used Date Smoking Tobacco: Former Cigarettes 0.5 12 1 987 - 1998 Smokeless Tobacco: Never Tobacco Cessation:Counseling Given: Not Answered Alcohol Use Standard Drinks/Week Comments Not Currently 0 (1 standard drink = 0.6 oz pur e alcohol) caffeine- 1 serving per day Social Connection and Isolation Panel [NHANES] A nswer Date Recorded In a typical week, how many times do you talk on the phone with family, friends, or neighbors? Twice a week 10/29/19 21 How often do you get togethe r with friends or relatives? Never 10/28/2020 How often do you attend chur ch or spiritism services? Patient declined 10/28/2020 Do you belong to any clubs o r organizations such as protestant groups, unions, fraternal or athletic groups, or school groups? No 10/28/2020 How often do you attend meet ings of the clubs or organizations you belong to? Patient declined 10/28/2020 Are you , , di vorced, , never , or living with a partner? Living with partner 10/28/2020 AUDIT-C Answer Date Recorded Q1: How often do you have a drink containing alc ohol? Patient declined 10/28/2020 Average Number of Drinks Not on file 021 Frequency of Binge Drinking Not on file 10/04 Overall Financial Resource Strain (CARDIA) Answe r Date Recorded How hard is it for you to pa y for the very basics like food, housing, medical care, and heating? Hard 10/28/2020 PHQ-2 Answer Date Recorded PHQ-2 Score 0 09/12/2019 [facility] [place] [facility] Occupat ional Health - Occupational Stress Questionnaire Answer Date Recorded Do you feel stress - tense, restless, nervous, or anxious, or unable to sleep at night because your mind is troubled all the time - these days? To some extent 10/28/2020 Exercise Vital Sign Answer Date Recorde d On average, how many days pe r week do you engage in moderate to strenuous exercise (like a brisk walk)? 3 days 10/28/2020 On average, how many minutes do you engage in exercise at this level? 60 min 10/28/2020 Hunger Vital Sign Answer Date Recorded Within the past 12 months, y ou worried that your food would run out before you got the money to buy more. Patient declined Within the past 12 months, t he food you bought just didn't last and you didn't have money to get more. Patient declined PRAPARE - Transportation Answer Date Re corded In the past 12 months, has l ack of transportation kept you from medical appointments or from getting medications? No 10/28/2020 In the past 12 months, has l ack of transportation kept you from meetings, work, or from getting things needed for daily living? Patient declined 10/28/2020 Housing Stability Vital Sign Answer Fadi e Recorded In the last 12 months, was t here a time when you were not able to pay the mortgage or rent on time? No 10/29/19 21 In the last 12 months, how many places have you lived? 1 10/28/2020 In the last 12 months, was t here a time when you did not have a steady place to sleep or slept in a long-term (including now)? Patient refused 10/28/2020 Nutrition Answer Date Recorded Nutrition: EVOO Fat Source Yes 10/28 On average, how many serving s of fruits and vegetables do you eat per day (serving size is equal to 1 cup or approximately the size of a tennis ball)? 2-3 10/28/2020 Dental Answer Date Recorded Dental: Regular Dentist Unknown 11/16/19 24 Employment Answer Date Recorded Employment status Unemployed/not in th e paid workforce but seeking employment 10/28/2020 Education Answer Date Recorded What is the highest level of school you have completed or the highest degree you have received? 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 Not on file Not on file Not on file Last Filed Vital Signs Vital Sign Reading Time Taken Comments Blood Pressure 124/70 12/23/2023 10:07 AM CDT Pulse 80 12/23/2023 10:07 AM CDT Temperature 36.2 C (97.2 F) 12/23/2023 10:07 AM CDT Respiratory Rate 18 12/23/2023 10:07 AM CDT Oxygen Saturation 96% 11/25/2021 9:45 AM CDT Inhaled Oxygen Concentration - - Weight 97 kg (213 lb 13.5 oz) 12/23/2023 10:07 A M CDT Height 181 cm (5' 11.26) 12/23/2023 10:07 AM CD T Body Mass Index 29.61 12/23/2023 10:07 AM CDT Plan of Treatment Scheduled Procedures Name Priority Associated Diagnoses Date/Ti me DECOMPRESSION SPINE - POSTERIOR LUMBAR Radiculopathy Health Maintenance Due Date Last Done Comments CT Colonography 1969 Cologuard 1969 Colonoscopy 1969 Colorectal Cancer Screening 1969 FIT 1969 Hepatitis C Screening 1969 Lipid (Cholesterol) Screening 1969 Hepatitis B Vaccines (1 of 3 - 19+ 3-dose series) 1988 Pneumococcal vaccine (0-64 years) (2 of 2 - PCV) 03/15/2014 03/15/2013 Zoster Vaccines (1 of 2) 2019 Depression Screening (Annual PHQ-2) 07/05/2023 COVID-19 Vaccine (2 - season) 2024 02/11/2021 Influenza Vaccine (#1) 2024 Fasting Glucose for Diabetes Screening 11/16/2025 11/16/2022, 11/15/2020, 12/19/2019, Additional history exists DTaP,Tdap,and Td Vaccines (3 - Td or Tdap) 04/10/2031 04/10/2021, 03/28/2012 IPV Vaccines Aged Out No longer eligi ble based on patient's age to complete this topic Medical Devices Implanted Type Area Miniature Train Driver Device Identifier Shelf Expiration Date Model / Serial / Lot Sonicweld Mesh Resorbx 50x50m .6mm - Baker [id number] Implanted:Qty: 1 on 07/08/2009 Hardware e.g. pins/screws/ rods KLS Fito Description:Device Manufactu rer - K[employer] Fito. Device Status Text - [id number]. Sonicweld Bone Pin Resorbx 2.1x4mm - Baker [id number] Implanted:Qty: 1 on 07/08/2009 Hardware e.g. pins/screws/ rods KLS Fito Description:Device Manufactu rer - K[employer] Fito. Device Status Text - [id number]. Penile Titan Std Assembly Kit [id number] Implanted:2020 by Sammy Moffett M.D. (Quantity not on file) Penile Implant Penis Coloplast 08/28/2025 [id number] / [id number] / [id number] Description:20 cm Titan [place] plast [place] Titan Cl [id number]/18/2021 Implanted:2020 by Sammy Moffett M.D. (Quantity not on file) Penile Implant Penis Coloplast 11/25/2025 [id number] / [id number] / [id number] Cylinder Set With Pump-02/18/2021 Implanted:2020 by Sammy Moffett M.D. (Quantity not on file) Penile Implant Penis Coloplast 10/28/2025 [id number] / [id number] / [id number] Procedures Procedure Name Priority Date/Time Associated Diagnosis Comments BASIC METABOLIC PANEL, S/P Routine 12/19/2019 11:26 AM CDT Preoperative Exam from Last 3 Months or Most Recently Relevant to Health Maintenance Results * Basic Metabolic Panel (12/19/2019 11:26 AM CDT) Pathologist [facility] Potassium, S 4.3 3.6 - 5.2 mmol/L 12/19/2019 12:06 PM CDT DTL Sodium, S 139 135 - 145 mmol/L 12/19/2019 12:06 PM CDT DTL Chloride, S 102 98 - 107 mmol/L 12/19/2019 12:06 PM CDT DTL Bicarbonate, S 25 22 - 29 mmol/L 12/19/2019 12:06 PM CDT DTL Anion Gap 12 7 - 15 12/19/2019 12:06 PM CDT DTL BUN (Blood Urea Nitrogen), S 13 8 - 24 mg/dL 12/19/2019 12:06 PM CDT DTL Creatinine 1.07 0.74 - 1.35 mg/dL 12/19/2019 12:06 PM CDT DTL eGFR-Non Black/ 81 >=60 mL/min/BSA 12/19/2019 12:06 PM CDT DTL Comment: ----ADDITIONAL INFORMATION---- Estimated GFR calculated using the 2009 CKD_EPI creatinine equation. eGFR-Black/Afric an Welsh >90 >=60 mL/min/BSA 12/19/2019 12:06 PM CDT DTL Comment: ----ADDITIONAL INFORMATION---- Estimated GFR calculated using the 2009 CKD_EPI creatinine equation. Calcium, Total, S 9.3 8.6 - 10.0 mg/dL 12/19/2019 12:06 PM CDT DTL Glucose, S 100 70 - 140 mg/dL 12/19/2019 12:06 PM CDT DTL Blood (Blood, Venous) 12/19/2019 11:26 AM CDT 12/19/2019 11:50 AM CDT Chanelle Barragan APRN, ASP NET DEVELOPER, M.S. LAB BLOOD ADD-ON F inal Result [facility] [address] [place] [address], [facility] [address] [place] [address] from Last 3 Months or Most Recently Relevant to Health Maintenance Insurance [facility] INSURANCE Advance Directives For more information, please contact: [phone] Documents on File Type Date Recorded Patient Assistant Drafter Expl anation Advance Directives 07/08/2009 12:00 AM Lega cy document. See document viewer. * Full Code (Latest Code Status on File) Date Activated Date Inactivated Comments 12/21/2019 1:30 PM 12/23/2019 3:04 PM Question Answer Comments Full Code: Discussed * Full Code Date Activated Date Inactivated Comments 04/26/2018 1:26 PM 04/26/2018 8:35 PM Question Answer Comments Full Code: Not Discussed Due to: Patient not available Care Teams Blower Installer Relationship Specialty Start Date End Date Elsewhere, Pcp PCP - General Family Medicine 12/07/20
--- OUTSIDE RECORDS SUMMARY | 2024-06-05 08:31 | XMS_ITS | Clinical Summary ---
Author Organization [facility] Address [place], [place] [address] Care Team Providers Care Couture Alterations Dressmaker Name Role Phone Mangum, *[facility] Primary Care Provider Unavailable Allergies Active Allergy Reactions Criticality Noted Date Comments Theobroma Oil Hives 12/28/2012 Medications Medication Sig Dispensed Refills Start Date End Date Status acetaminophen (TYLENOL) 325 mg tablet Take 2 tablets by mouth every 4 hours if needed for Pain (For mild pain.). Max acetaminophen dose: 4000mg in 24 hrs. 0 03/15/2013 Active artificial tear 0.3 %, hypromellose, (MURINEREFRESH ISOPTO TEARS) 0.3 % Drop Place 1 Drop into the eye(s) 3 times daily if needed. 15 mL 0 03/20/2013 Active artificial Tear, hypromellose 0.3 % gel, (GENTEAL) 0.3 % GelIndications:Nance 's palsy Place 1-2 Drops into the eye(s) every 2 hours if needed. 1 Tube 0 03/28/2013 Active fluticasone-salmete rol (ADVAIR DISKUS) 250-50 mcg/Dose diskus inhalerIndications: Mild persistent asthma Inhale 1 Puff by mouth every 12 hours. 1 Inhaler 11 05/22/2013 Active albuterol HFA (PRO-AIR,VENTOLIN,P ROVENTIL) 90 mcg/actuation inhalerIndications: Mild persistent asthma Inhale 2 Puffs by mouth 4 times daily if needed. 1 Inhaler 12 05/22/2013 Active ibuprofen (ADVIL; MOTRIN) 200 mg tablet Take 2 tablets by mouth 2 times daily if needed for Pain. 0 03/04/2018 Active budesonide-formoter oL (SYMBICORT) 160-4.5 mcg/actuation (160-4.5 mcg each actuation) inhaler Inhale 2 Puffs by mouth. Active FLUoxetine (PROZAC) 20 mg capsule Take 80 mg by mouth once daily. 09/28/2022 Active gabapentin (NEURONTIN) 300 mg capsule Take 600 mg by mouth two times daily. 11/12/2022 Active traZODone (DESYREL) 50 mg tablet Take 1 Tablet by mouth once daily in the afternoon. 11/11/2022 Active Active Problems Problem Noted Date Diagnosed Date Acute pharyngitis and laryngitis 03/14/2013 Overview (03/14/2013): WHITE BLOOD COUNT (thou/cu mm) Date Value 03/14/2013 20.3* 03/14/2013 monospot and rapid strep negative IV decadron and ceftriaxone Mild persistent asthma Overview (03/14/2013): Advair and albuterol Status post excision of acoustic neuroma Overview (03/14/2013): Deaf in left ear Immunizations Name Administration Dates Next Due Pneumococcal Poly,23-Valent (Pneumovax) 03/15/20 13 Tdap 03/28/2012 Family History Relation Name Status Comments Father Alive Mother Social History Tobacco Use Types Packs/Day Years Used Date Smoking Tobacco: Former Cigarettes 0.5 15 Smokeless Tobacco: Never Comments:unknowen when he st arted or stopped Alcohol Use Standard Drinks/Week Comments No 0 (1 standard drink = 0.6 oz pur e alcohol) Beer every other week or so Sex and Gender Information Value Date Recorded Sex Assigned at Not on file Gender Identity Not on file Sexual Orientation Not on file Obstetrics History Last Filed Vital Signs Vital Sign Reading Time Taken Comments Blood Pressure 105/58 11/16/2022 10:37 AM CDT Pulse 112 11/16/2022 10:37 AM CDT Temperature 36.9 C (98.4 F) 11/16/2022 10:18 AM CDT Respiratory Rate 28 11/16/2022 10:18 AM CDT Oxygen Saturation 98% 11/16/2022 10:37 AM CDT Inhaled Oxygen Concentration - - Weight 89.4 kg (197 lb) 03/04/2018 3:09 PM CDT Height 180.3 cm (5' 11) 03/04/2018 3:09 PM CDT Body Mass Index 27.48 03/04/2018 3:09 PM CDT Plan of Treatment Health Maintenance Due Date Last Done Comments Depression screening for age 12+ 1981 HIV for age 15-65 1984 Hepatitis C screening for ag e 18-79 1987 Colonoscopy through age 75 2014 Lipids for age 45-75 2014 BMI (ht and wt on same day) for age 18+ 03/04/2019 03/04/2018 Zoster (shingles) series for age 50+ (1 of 2) 2019 Tetanus booster 03/28/2022 03/28/2012 COVID-19 vaccine series ( season) 2024 Influenza for age 50-64 03/05/2024 Tdap Completed 03/28/2012 Pneumococcal series for age 6-64 Aged Out 03/15/20 13 No longer eligible based on patient's age to complete this topic Additional Health Concerns Infection Onset Date Last Indicated COVID History Comment:COVID+ test result dates: 11/03/20 [facility] Patient met COVID clearance criteria on 12/16/20. For evaluation of subsequent COVID+ results, refer to the algorithm on the AKN: Isolation Precaution Recommendations for Patients with History of COVID-19 Infection. 12/16/2020 12/16/2020 Advance Directives * Full Code (Latest Code Status on File) Date Activated Date Inactivated Comments 03/14/2013 9:49 AM 03/15/2013 12:55 PM Care Teams Couture Alterations Dressmaker Relationship Specialty Start Date End Date [facility] - General 12/03/20
--- OUTSIDE RECORDS SUMMARY | 2024-06-05 08:31 | XMS_ITS ---
Author Organization [facility] Address [address] [place] [address] Care Team Providers Care Video Editor Name Role Phone Unavailable Unavailable Unavailable Surgery Details Not on file Complications Check Surgery Details section. Procedure Estimated Blood Loss Check Surgery Details section. Procedure Findings Check Surgery Details section. Procedure Specimens Taken Check Surgery Details section.
--- OUTSIDE RECORDS SUMMARY | 2024-06-05 08:31 | XMS_ITS | Referral Summary ---
Author Organization [facility] Address [address] [place] [address]. [place] [address] Care Team Providers Care Practice Lead Name Role Phone Ronal Bashir MD Primary Care Provider + Allergies Active Allergy Reactions Criticality Noted Date Comments Cat Hair Extract 07/02/2009 Other reaction(s): Other (see comments) Eye swelling, sneezing. Chocolate High 09/05/2020 Other reaction(s): hives Crapo Hives 07/02/2009 Hives. Medications albuterol (2.5 MG/3ML) 0.083% nebulizer solution Take 1 ampule by nebulization daily as needed Active celecoxib (CELEBREX) 200 MG capsule Take 200 mg by mouth daily Active FLUoxetine (PROZAC) 20 MG capsule Take 60 mg by mouth daily (20MG X 3 = 60MG) Active fluticasone (FLOVENT HFA) 110 MCG/ACT inhaler Inhale 1 puff into the lungs 2 times daily Active gabapentin (NEURONTIN) 300 MG capsule Take 900 mg by mouth 3 times daily (300MG X 3 = 900MG) Active ipratropium - albuterol 0.5 mg/2.5 mg/3 mL (DUONEB) 0.5-2.5 (3) MG/3ML neb solution Take 1 vial by nebulization every 4 hours as needed Active sildenafil (VIAGRA) 100 MG tablet Take 100 mg by mouth daily as needed Active traZODone (DESYREL) 50 MG tablet Take 50 mg by mouth At Bedtime Active budesonide-form oterol (SYMBICORT) 160-4.5 MCG/ACT Inhaler Inhale 2 puffs into the lungs every morning Active montelukast (SINGULAIR) 10 MG tablet Take 10 mg by mouth every evening Active melatonin 3 MG tablet Take 3 mg by mouth nightly as needed for sleep Active sulfamethoxazol e-trimethoprim (BACTRIM DS) 800-160 MG tabletIndicatio ns:Other male erectile dysfunction Take 1 tablet by mouth 2 times daily 10 tablet 1 Active predniSONE (DELTASONE) 20 MG tablet Take two tablets (= 40mg) each day for 5 (five) days 10 tablet 3 Active Social History Tobacco Use Types Packs/Day Years Used Date Smoking Tobacco: Former Cigarettes Smokeless Tobacco: Never Alcohol Use Standard Drinks/Week Comments No 0 (1 standard drink = 0.6 oz pur e alcohol) Adolescent Education Answer Date Record ed Getting School Help Needed Not on file 04/02 Sex and Gender Information Value Date Recorded Sex Assigned at Not on file 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 Gender Identity Not on file Sexual Orientation Not on file Last Filed Vital Signs Vital Sign Reading Time Taken Comments Blood Pressure 120/68 11/16/2022 4:00 PM CDT Pulse 76 11/16/2022 4:00 PM CDT Temperature 36.8 C (98.3 F) 11/16/2022 11:08 AM CDT Respiratory Rate 20 11/16/2022 11:08 AM CDT Oxygen Saturation 95% 11/16/2022 4:30 PM CDT Inhaled Oxygen Concentration - - Weight 93.4 kg (206 lb) 02/18/2021 7:41 AM CDT Height 180.3 cm (5' 11) 02/18/2021 7:41 AM CDT Body Mass Index 28.73 02/18/2021 7:41 AM CDT Plan of Treatment Not on file Medical Devices Implanted Type Area President Financial Institution Device Identifier Shelf Expiration Date Model / Serial / Lot Imp Prosthesis Penile Titan Std Assembly Kit [id number] - [id number] Implanted:Qty: 1 on 02/18/2021 by Sammy Moffett MD at [facility] Penile Implant N/A: Penis COLOPLAST 08/28/2025 [id number] / [id number] / [id number] Titan Cl [id number] - [id number] Implanted:Qty: 1 on 02/18/2021 by Sammy Moffett MD at [facility] Pump N/A: Penis COLOPLAST 11/25/2025 [id number] / [id number] / [id number] Cylinder Set With Pump Implanted:Qty: 1 on 02/18/2021 by Sammy Moffett MD at [facility] N/A: Penis COLOPLAST 10/28/2025 [id number] / [id number] / [id number] Procedures Procedure Name Priority Date/Time Associated Diagnosis Comments BASIC METABOLIC PANEL STAT 11/16/2022 11:28 AM CDT from Last 3 Months or Most Recently Relevant to Health Maintenance Results * (ABNORMAL) Basic metabolic panel (BMP) (11/16/2022 11:28 AM CDT) Sodium 135(L) 136 - 145 mmol/L 11/16/2022 12:09 PM CDT LABORATORY Potassium 3.5 3.4 - 5.3 mmol/L 11/16/2022 12:09 PM CDT LABORATORY Chloride 99 98 - 107 mmol/L 11/16/2022 12:09 PM CDT LABORATORY Carbon Dioxide (CO2) 22 22 - 29 mmol/L 11/16/2022 12:09 PM CDT LABORATORY Anion Gap 14 7 - 15 mmol/L 11/16/2022 12:09 PM CDT LABORATORY Urea Nitrogen 8.8 6.0 - 20.0 mg/dL 11/16/2022 12:09 PM CDT LABORATORY Creatinine 1.07 0.67 - 1.17 mg/dL 11/16/2022 12:09 PM CDT LABORATORY Calcium 8.9 8.6 - 10.0 mg/dL 11/16/2022 12:09 PM CDT LABORATORY Glucose 132(H) 70 - 99 mg/dL 11/16/2022 12:09 PM CDT LABORATORY GFR Estimate 83 >60 mL/min/1.7 3m2 11/16/2022 12:09 PM CDT LABORATORY Comment:eGFR calculated usin 2020 CKD-EPI equation. Blood STRUCTURE OF LEFT UPPER LIMB / Unknown Venipuncture / Unknown 11/16/2022 11:28 AM CDT 11/16/2022 11:36 AM CDT us Karlos Aj DO LAB - BLOOD ORDERABLES Final Res ult LABORATORY [facility] [address] (1st floor, no room number) [place] [address], [facility] [phone] from Last 3 Months or Most Recently Relevant to Health Maintenance Care Teams Practice Lead Relationship Specialty Start Date End Date Ronal Bashir MD [address] [place] [address] PCP - General Internal Medicine 11/16/22
--- OUTSIDE RECORDS SUMMARY | 2024-06-05 08:31 | XMS_ITS | Encounter Summary ---
Author Organization [place] Address Formerly [facility] [place] [address] Care Team Providers Care Battery Stacker Name Role Phone [facility], [facility] Primary Care Provider Ronal Bashir MD Primary Care Provider + Encounter Details Date Type Department Care Team (Late st Contact Info) Description 05/20/2002 [facility] [address] [facility] [address] [place] [address] Tommy Chavez MD [place] [address] [place] [address] Social History Tobacco Use Types Packs/Day Years Used Date Smoking Tobacco: Former Cigarettes Smokeless Tobacco: Never Alcohol Use Standard Drinks/Week Comments No 0 (1 standard drink = 0.6 oz pur e alcohol) Sex and Gender Information Value Date Recorded Sex Assigned at Not on file 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 Gender Identity Not on file Sexual Orientation Not on file documented as of this encounter Progress Notes * 05/20/2002 11:59 PM CSTAddended by: MARY RICHMOND on: 05/29/2002,2:55 PM Modules accepted: Progress Notes Addended by: GAYLE VALERA on: 05/26/2002,1:33 PM Modules accepted: Progress Notes 00:00 History And Physical-[facility] TOMMY CHAVEZ) [Entered: Training Development Director (HIM)] : 68 CHIEF COMP LAINT: Severe [...] [id number] _ TOMMY CHAVEZ MD MT: Document: [id number] [place], [place] Name: ROSALVA THOMAS HISTORY AND PHYSCIAL Page 2 of 2 LCN: MS3 DSC: [place], [place] Name: MR#: : Admit Date: ROSALVA THOMAS -83 1970 05/20/2002 Doctor: TOMMY CHAVEZ MD HISTORY AND PHYSICAL Page 1 of 2 Electronically filed by Gayle Washburn 05/26/2002 1:32 PM 11:19 Discharge Summary-[facility] TOMMY CHAVEZ () [Entered: 00:00 Training Development Director ([facility])] : PROVISIONAL DIAGNOSIS: Pneumonia. FINAL DISCHARGE [...] and that has corrected to normal. [id number] KAYER HENRIETTA CHAVEZ MD MT: Document: [id number] [place], [place] Name: ROSALVA THOMAS Please refer to the Nursing Discharge Information Sheet for more detailed information regarding diet, physical actvity limitations, medica tions and other pertinent instructions given to this patient upon discharge. DISCHARGE SUMMARY Page 2 of 2 LCN: MS3 DSC: 05/23/2002 [place], [place] Name: MR#: : A dmit Date: Discharge Date: ROSALVA THOMAS [id number] 05/20/2002 05/23/2002 Doctor: TOMMY CHAVEZ MD [...] on file documented as of this encounter Visit Diagnoses Not on filedocumented in this encounter Additional Health Concerns Infection Onset Date Last Indicated Resolved Time Rule Out COVID-19 11/16/2022 11/16/2022 11/16/2022 11:58 AM CDT documented as of this encounter Care Teams Battery Stacker Relationship Specialty Start Date End Date [facility], [facility] PCP - General 07/12/12 11/14/[address] [address] PCP - General 11/15/20 11/15/22 Ronal Bashir MD [address] [place] [address] PCP - General Internal Medicine 11/16/22 documented as of this encounter
--- OUTSIDE RECORDS SUMMARY | 2024-06-05 08:31 | XMS_ITS | Clinical Summary ---
Author Organization [place] Address [address] [place] [address]. [place] [address] Care Team Providers Care Strike Operations Officer Name Role Phone Ronal Bashir MD Primary Care Provider + Allergies Active Allergy Reactions Criticality Noted Date Comments Cat Hair Extract 07/02/2009 Other reaction(s): Other (see comments) Eye swelling, sneezing. Chocolate High 09/05/2020 Other reaction(s): hives Moro Hives 07/02/2009 Hives. 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 Gender Identity Not on file Sexual Orientation [...] OF HM ORDERS 1970 CT COLONOGRAPHY 1969 FIT 1969 FLEX SIG 1969 YEARLY PREVENTIVE VISIT 1969 sDNA (Cologuard) 1969 COLONOSCOPY 1979 COLORECTAL CANCER SCREENING 1979 HIV SCREENING 1984 HEPATITIS C SCREENING 1987 HEPATITIS B IMMUNIZATION (1 of 3 - 19+ 3-dose series) 1988 LIPID 2009 LUNG CANCER SCREENING 2019 ZOSTER IMMUNIZATION (1 of 2) 2019 PHQ-2 (once per calendar year) 2023 COVID-19 Vaccine (2 - 2023-2 5 season) 2024 02/11/2021 INFLUENZA VACCINE (#1) 2024 GLUCOSE 11/16/2025 11/16/2022, 11/15/2020, 07/12/2012 DTAP/TDAP/TD IMMUNIZATION (3 - Td or Tdap) 04/10/2031 04/10/2021, 03/28/2012 RSV VACCINE (1 - 1-dose 75+ series) 2044 Pneumococcal Vaccine: Pediatrics (0 to 5 Years) and At-Risk Patients (6 to 64 Years) Aged Out 03/15/2013 No longer eligible b ased on patient's age to complete this topic HPV IMMUNIZATION Aged Out No longer e ligible based on patient's age to complete this topic MENINGITIS IMMUNIZATION Aged Out No l onger eligible based on patient's age to complete this topic RSV MONOCLONAL ANTIBODY Aged Out No l onger eligible based on patient's age to complete this topic Medical Devices Implanted Type Area Drywall Mechanic Device Identifier Shelf Expiration Date Model / Serial / Lot Imp Prosthesis Penile Titan Std Assembly Kit [id number] - [id number] Implanted:Qty: 1 on 02/18/2021 by Sammy Moffett MD at [facility] Penile Implant N/A: Penis COLOPLAST 08/28/2025 [id number] / [id number] / [id number] [place] Titan Cl [id number] - [id number] Implanted:Qty: 1 on 02/18/2021 by Sammy Moffett MD at [facility] Pump N/A: Penis COLOPLAST 11/25/2025 [id number] / [id number] / [id number] Cylinder Set With Pump Implanted:Qty: 1 on 02/18/2021 by Sammy Moffett MD at [facility] N/A: Penis COLOPLAST 10/28/2025 [id number] / [id number] / [id number] Procedures Procedure Name Priority Date/Time Associated Diagnosis [...] 12:09 PM CDT LABORATORY Comment:eGFR calculated usin g 2020 CKD-EPI equation. Blood STRUCTURE OF LEFT UPPER LIMB / Unknown Venipuncture / Unknown 11/16/2022 11:28 AM CDT 11/16/2022 11:36 AM CDT us Karlos Aj DO LAB - BLOOD ORDERABLES Final Res ult LABORATORY [facility] [address] Lab (1st floor, no room number) [place] [address], [facility] [phone] from Last 3 Months or Most Recently Relevant to Health Maintenance Care Teams Strike Operations Officer Relationship Specialty Start Date End Date Ronal Bashir MD [address] [place] [address] PCP - General Internal Medicine 11/16/22
--- OUTSIDE RECORDS SUMMARY | 2024-06-05 08:31 | XMS_ITS | Referral Summary ---
Author Organization [facility] Address [address] [place] [address] Care Team Providers Care Matting Press Tender Name Role Phone Elsewhere, Pcp Primary Care Provider Unavailabl e Source Comments Patient records contain information from all sites at [facility]. For routine questions regarding patient records, call [phone] during business hours, M-F 8:00 AM - 5:00 PM Central Time. Record requests for emergency care only can be directed to [phone] at any time.[facility] Allergies Active Allergy Reactions Criticality Noted Date Comments Cat Dander Other (see comments) 07/02/2009 Eye swelling, sneezing. [place] Hives (Reselect Reaction) 07/02/2009 Hives. 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 Overview (09/12/2019): Added automatically from request for surgery [id number] Radiculopathy 04/26/2018 Anxiety 04/25/2018 Asthma Mild Persistent 04/08/2018 Overview (04/08/2018): Overview: Advair and albuterol Other Specified Postprocedural States 04/08/2018 Overview (04/08/2018): Overview: Deaf in left ear Unsteadiness Gait Disorder Non Orthopedic 2009 Asthma NOS 07/02/2009 Loss Hearing Sensorineural Unilateral 07/02/2009 Resolved Problems Problem Noted Date Diagnosed Date Resolved Date Ruptured Lumbar Disc 04/14/2018 018 Overview (04/14/2018): Added automatically from request for surgery [id number] Social History Tobacco Use Types Packs/Day Years [...] friends, or neighbors? Twice a week 10/29/19 How often do you get togethe r with friends or relatives? Never 10/28/2020 How often do you attend chur ch or anabaptist services? Patient declined 10/28/2020 Do you belong to any clubs o r organizations such as hinduism groups, unions, fraternal or athletic groups, or [...] Answer Date Recorded PHQ-2 Score 0 09/12/2019 [facility] of Occupat ional Health - Occupational Stress [...] place to sleep or slept in a chcf (including now)? Patient refused 10/28/2020 Nutrition Answer Date Recorded Nutrition: EVOO Fat Source Yes 10/28 On average, how many serving s of fruits and vegetables do you eat per day (serving size is equal to 1 cup or approximately the size of a tennis ball)? 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 pins/screws/ rods [employer] Description:Device Manufactu rer - [employer]. Device Status Text - [id number]. Sonicweld Bone Pin Resorbx 2.1x4mm - [place] [id number] Implanted:Qty: 1 on 07/08/2009 Hardware e.g. pins/screws/ rods [employer] Description:Device Manufactu rer - [employer]. Device Status Text - [id number]. Penile Titan Std Assembly Kit [id number] Implanted:2020 by Sammy Moffett M.D. (Quantity not on file) Penile Implant Penis Coloplast 08/28/2025 [id number] / [id number] / [id number] Description:20 cm Titan [place] plast [place] Titan Cl [id number]/18/2021 Implanted:2020 by Sammy Moffett M.D. (Quantity not on file) Penile Implant Penis Coloplast 11/25/2025 [id number] / [id number] / [id number] Cylinder Set With Pump-02/18/2021 Implanted:2020 by Sammy Moffett M.D. (Quantity not on file) Penile Implant Penis Coloplast 10/28/2025 [id number] / [id number] / [id number] Procedures Procedure Name Priority Date/Time Associated Diagnosis Comments BASIC METABOLIC PANEL, S/P Routine 12/19/2019 11:26 AM CDT Preoperative Exam from Last 3 Months or Most Recently Relevant to Health Maintenance Results * Basic Metabolic Panel (12/19/2019 11:26 AM CDT) Potassium, S 4.3 3.6 - 5.2 mmol/L [...] the 2009 CKD_EPI creatinine equation. eGFR-Black/Afric an Guamanian >90 >=60 mL/min/BSA 12/19/2019 12:06 PM CDT DTL Comment: ----ADDITIONAL INFORMATION---- Estimated GFR calculated using the 2009 CKD_EPI creatinine equation. Calcium, Total, S 9.3 8.6 - 10.0 mg/dL 12/19/2019 12:06 PM CDT DTL Glucose, S 100 70 - 140 mg/dL 12/19/2019 12:06 PM CDT DTL Blood (Blood, Venous) 12/19/2019 11:26 AM CDT 12/19/2019 11:50 AM CDT Chanelle Barragan APRN, MOISES, M.S. LAB BLOOD ADD-ON F inal Result [facility] [address] [place] [address], [place] DTL [facility] [address] [place] [address] from Last 3 Months or Most Recently Relevant to Health Maintenance Insurance [facility] [place] [address] [facility] INSURANCE Member Subscriber Plan / Payer (Ef fective 2023-Present) Name:Don Thomas Relation to Subscriber:Employee Name:LAYLA GOMEZ Address: [address] [place] [id number] Payer ID:Not on file Group ID:Not on file Type:Indemnity Address: [address] [place] [address] Advance Directives For more information, please contact: [phone] Documents on File Type Date Recorded Patient Drupal Developer Expl anation Advance Directives 07/08/2009 12:00 AM [...] Due to: Patient not available Care Teams Matting Press Tender Relationship Specialty Start Date End Date Elsewhere, Pcp PCP - General Family Medicine 12/07/20
== END 2024-06-05 08:29 | disposition home or self-care (01) ==
PROVIDERS: PCP Physician Assistant Medical; Visit Provider Physician Assistant Medical
DX: R53.83 Other fatigue (principal); Z13.0 Encounter for screening for diseases of the blood and blood-forming organs and certain disorders involving the immune mechanism; Z13.29 Encounter for screening for other suspected endocrine disorder; Z13.6 Encounter for screening for cardiovascular disorders; Z12.5 Encounter for screening for malignant neoplasm of prostate; Z11.59 Encounter for screening for other viral diseases
CPT/HCPCS: 80053; 80061; 82306; 84443; 86703; 86803; G0103